=== PATIENT | male | born 1960 | race Two or more races ===

== ENCOUNTER → 2020-08-08 13:25 | Outpatient (BNVA) | payer MEDICARE, MEDICAID, SELFPAY | PROVIDERS: PCP Internal Medicine; Visit Provider Urology | DX: C61 Malignant neoplasm of prostate (principal) | CPT/HCPCS: 96372; J9217 ==

== ENCOUNTER 2020-11-06 10:56 | Outpatient (REF) | payer MEDICARE, MEDICAID, SELFPAY ==
[2020-11-06 12:16] LABS: PSA,Total (Free>4and<10) < 0.05 ng/mL (0.00-4.00)
== END 2020-11-06 10:57 | disposition home or self-care (01) ==
LOC: HO.LAB 10:56
PROVIDERS: PCP Internal Medicine; Visit Provider Urology
DX: N40.1 Benign prostatic hyperplasia with lower urinary tract symptoms (principal); N13.8 Other obstructive and reflux uropathy; C61 Malignant neoplasm of prostate; Z12.5 Encounter for screening for malignant neoplasm of prostate
CPT/HCPCS: 36415; 84153

== ENCOUNTER → 2020-11-08 13:16 | Outpatient (BNVA) | payer MEDICARE, MEDICAID, SELFPAY | PROVIDERS: Visit Provider Urology | DX: Z13.89 Encounter for screening for other disorder (principal) | CPT/HCPCS: Q3014 ==

== ENCOUNTER 2021-01-29 11:58 | Outpatient (REF) | payer MEDICARE, MEDICAID, SELFPAY ==
[2021-01-29 13:59] LABS: Alanine Aminotransferase 20 U/L (0-40); Albumin Level 4.2 g/dL (3.5-5.0); Alkaline Phosphatase 77 U/L (39-117); Anion Gap 12 (12-20); Aspartate Amino Transferase 16 U/L (5-37); Bilirubin Total 0.6 mg/dL (0.0-1.0); Blood Urea Nitrogen 16 mg/dL (9-16); Calcium 8.9 mg/dL (8.4-10.2); Carbon Dioxide 28 mmol/L (22-29); Chloride 101 mmol/L (96-108); Cholesterol 175 mg/dL; Estimated Glomerular Filt Rate > 60; Glucose Fasting 89 mg/dL (60-99); HDL Cholesterol 34 mg/dL; LDL Cholesterol Calculated 79 mg/dl; Potassium 3.8 mmol/L (3.3-5.1); Sodium 137 mmol/L (135-145); Triglycerides 313 mg/dL
[2021-01-29 14:05] LABS: PSA,Total (Free>4and<10) < 0.05 ng/mL (0.00-4.00)
[2021-02-02 08:17] LABS: Testosterone, Total 10 ng/dL (250-1100)
== END 2021-01-29 11:59 | disposition home or self-care (01) ==
LOC: HO.LAB 11:58
PROVIDERS: Internal Medicine; Visit Provider Urology
DX: Z12.5 Encounter for screening for malignant neoplasm of prostate (principal); C61 Malignant neoplasm of prostate; I10 Essential (primary) hypertension; E78.5 Hyperlipidemia, unspecified; N13.8 Other obstructive and reflux uropathy; N40.1 Benign prostatic hyperplasia with lower urinary tract symptoms
CPT/HCPCS: 36415; 80053; 80061; 84153; 84403; 96402; 99212; J9217

== ENCOUNTER 2021-07-16 13:11 | Outpatient (REF) | payer MEDICARE, MEDICAID, SELFPAY ==
[2021-07-16 14:55] LABS: Prostate Specific Antigen < 0.05 ng/mL (<0.05-4.0)
[2021-07-20 11:15] LABS: Testosterone, Total 14 ng/dL (250-1100)
== END 2021-07-16 13:12 | disposition home or self-care (01) ==
LOC: HO.LAB 13:11
PROVIDERS: Visit Provider Urology
DX: Z12.5 Encounter for screening for malignant neoplasm of prostate (principal); C61 Malignant neoplasm of prostate
CPT/HCPCS: 36415; 84153; 84403

== ENCOUNTER → 2021-07-23 11:33 | Outpatient (BNVA) | payer MEDICARE, MEDICAID, SELFPAY | PROVIDERS: PCP Internal Medicine; Visit Provider Urology | DX: C61 Malignant neoplasm of prostate (principal); R39.15 Urgency of urination | CPT/HCPCS: Q3014 ==

== ENCOUNTER 2021-09-24 15:53 | Emergency (ER) | payer MEDICARE, MEDICAID, SELFPAY ==
--- NOTE | ~2021-09-24 | CT_ITS ---
EXAM: NONCONTRAST AND CONTRAST-ENHANCED CT OF THE ABDOMEN AND PELVIS INDICATION: Melena, hematochezia COMPARISON: None TECHNIQUE: 80 mL Omnipaque 350 IV contrast was utilized. Multidetector helical imaging was performed through the abdomen and pelvis prior to and following contrast administration. Coronal and sagittal reformatted images were created at the technologist workstation. DOSE LOWERING TECHNIQUES: This CT examination was performed using dose optimization techniques as appropriate, variously including the following: - Automated exposure control - Adjustment of mA and/or kV according to patient size (this includes techniques or standardized protocols for targeted exams were dose is matched to indication/reason for exam; i.e. extremities or head) - Use of iterative reconstruction technique DLP: 1778 mGy-cm Findings: The lung bases are clear. The liver demonstrates hypoattenuation consistent with steatosis. No intrahepatic biliary ductal dilatation. The gallbladder is unremarkable. The spleen, pancreas, and adrenal glands are within normal limits. Bilateral nephrograms are symmetric. No hydronephrosis. No obstructing renal or ureteral calculi are present. The urinary bladder is unremarkable. Prostatic seeds are noted. No active gastrointestinal hemorrhage is seen. There is mild colonic diverticulosis without convincing diverticulitis. There is mild mural prominence of the rectum, for which a mild proctitis cannot be excluded. No free fluid or free air is seen. There is mild scattered atherosclerotic calcification. No retroperitoneal or pelvic lymphadenopathy is seen. No acute osseous findings. CT/CT gi bleed abd pel wo/w con Impression: 1. No active gastrointestinal hemorrhage identified. 2. Mild mural prominence of the rectum, which could reflect mild proctitis. Correlation with recent or followup colonoscopy is advised to exclude an underlying mass lesion. 3. Hepatic steatosis.
[2021-09-24 17:45] LABS: MANUAL DIFF FLAG NO
[2021-09-24 17:47] LABS: Basophils Percent Auto 0.8 % (0-2); Eosinophils Absolute Auto 0.3 X10*3/uL (0.0-0.4); Eosinophils Percent Auto 4.9 % (0-4); Hematocrit 42.7 % (42.0-52.0); Hemoglobin 14.1 g/dl (14.0-18.0); Imm Gran Abs Auto 0.02 X10*3/uL (0.00-0.03); Imm Gran Pct Auto 0.4 % (0.0-0.4); Lymphocytes Percent Auto 18.9 % (20-40); Mean Corpuscular Hemoglobin 27.5 pg (27.0-33.0); Mean Corpuscular Volume 83.4 fL (80.0-98.0); Mean Platelet Volume 9.7 fL (9.4-12.4); Monocytes Absolute Auto 0.4 X10*3/uL (0.1-1.2); Monocytes Percent Auto 8.1 % (2-11); Neutrophils Absolute Auto 3.4 x10*3/uL (2.0-8.3); Neutrophils Percent Auto 66.9 % (45-73); Platelet Count 305 X10*3/uL (160-400); Red Blood Count 5.12 X10*6/uL (4.60-5.80); Red Cell Distribution Width 13.8 % (11.0-16.0); White Blood Count 5.1 X10*3/uL (4.8-10.8)
[2021-09-24 18:03] LABS: Anion Gap 10 (12-20); Blood Urea Nitrogen 13 mg/dL (9-16); Calcium 9.8 mg/dL (8.4-10.2); Carbon Dioxide 29 mmol/L (22-29); Chloride 102 mmol/L (96-108); Estimated Glomerular Filt Rate > 60; Glucose Random 86 mg/dL (60-115); Potassium 3.7 mmol/L (3.3-5.1); Sodium 137 mmol/L (135-145)
[2021-09-24 18:16] VITALS: BP 146/80; PULSE 63; RESP 16; TEMP 36.7; O2SAT 98; BMI 32.4
[2021-09-24 18:45] LABS: Appearance Urine CLEAR; Color Urine YELLOW; Glucose Urine UA NEG (NEG); Leukocyte Esterase Urine NEG (NEG); Nitrite Urine NEG (NEG); Specific Gravity - Urine 1.015 (1.005-1.025); Urine Blood NEG (NEG); Urine Ketones NEG (NEG); Urine Protein NEG (NEG-TRACE)
[2021-09-24 21:35] LABS: Alanine Aminotransferase 35 U/L (0-40); Albumin Level 4.6 g/dL (3.5-5.0); Alkaline Phosphatase 72 U/L (39-117); Anion Gap 10 (12-20); Aspartate Amino Transferase 24 U/L (5-37); Bilirubin Direct 0.2 mg/dL (0.0-0.5); Blood Urea Nitrogen 13 mg/dL (9-16); Carbon Dioxide 31 mmol/L (22-29); Chloride 102 mmol/L (96-108); Creatinine Clr Calc Pharmacy 97.9; Estimated Glomerular Filt Rate > 60; Glucose Random 97 mg/dL (60-115); Lipase 21 U/L (8-78); Sodium 139 mmol/L (135-145); Total Protein 8.3 g/dL (6.5-8.0)
--- NOTE | 2021-09-24 23:58 | ED_ITS ---
HPI - GI Bleed General Chief complaint: GI Bleed <STEFAN Malik Last Filed: 09/25/21 03:09> Stated complaint: blood in stool and flank pain <Collette Barney NP - Last Filed: 09/25/21 03:09> Time Seen by Provider: 09/25/21 03:08 <Collette Barney NP - Last Filed: 09/25/21 03:09> Source: patient <Collette Barney NP - Last Filed: 09/25/21 03:09> Mode of arrival: ambulatory <Collette Barney NP - Last Filed: 09/25/21 03:09> Limitations: no limitations <STEFAN Malik Last Filed: 09/25/21 03:09> History of Present Illness HPI Narrative: 60-year-old male presents with black tarry stools, bright red blood per rectum, left-sided flank pain for approximately 1 month, taking ibuprofen 800 mg 3 times a day, with a history of prostate cancer approximately 1 year ago. <Collette Barney NP - Last Filed: 09/25/21 03:09> MD complaint: melena and blood streaked stool <Collette Barney NP - Last Filed: 09/25/21 03:09> Onset (ago): day(s) (3) <Collette Barney NP - Last Filed: 09/25/21 03:09> Pain Consistency: constant <Collette Barney NP - Last Filed: 09/25/21 03:09> Severity: moderate <Collette Barney NP - Last Filed: 09/25/21 03:09> Relieving factors: none <Collette Barney NP - Last Filed: 09/25/21 03:09> Exacerbating factors: bowel movement and movement <STEFAN Malik Last Filed: 09/25/21 03:09> Context: hemorrhoids and other (History of prostatic cancer with radiation) <Collette Barney NP - Last Filed: 09/25/21 03:09> Associated symptoms: abdominal pain <Collette Barney NP - Last Filed: 09/25/21 03:09> Treatments Prior to Arrival: none <STEFAN Malik Last Filed: 09/25/21 03:09> Related Data Home medications: Home Medications Medication Instructions Recorded Confirmed fluticasone propionate 115 2 puff PO BID 11/08/20 02/13/21 mcg-salmeterol 21 mcg/actuation HFA inhaler hydralazine 100 mg tablet 100 mg PO BEDTIME 05/07/21 Previous Rx's Medication Instructions Recorded albuterol sulfate 90 mcg/actuation 2 inh INHALATION Q6H PRN 30 Days 10/25/20 breath activated powder inhaler #1 ea (ProAir RespiClick) ibuprofen 800 mg tablet 800 mg PO TID #90 tab 10/25/20 tamsulosin 0.4 mg capsule 0.4 mg PO BEDTIME #90 cap 11/08/20 finasteride 5 mg tablet 5 mg PO DAILY #30 tab 03/05/21 azithromycin 250 mg tablet See Rx Instructions PO .COMPLEX #6 04/03/21 tab amlodipine 2.5 mg tablet 2.5 mg PO DAILY 90 Days #90 tab 04/10/21 amoxicillin 500 mg tablet 500 mg PO Q12H 5 Days #10 tab 04/14/21 albuterol sulfate 90 mcg/actuation 2 puff PO Q4H PRN #18 g 05/03/21 aerosol inhaler (Ventolin HFA) atorvastatin 10 mg tablet 10 mg PO BEDTIME #90 tab 05/03/21 omeprazole 20 mg capsule,delayed 20 mg PO DAILY #90 cap 05/03/21 release irbesartan 300 1 tab PO DAILY #30 tab 07/02/21 mg-hydrochlorothiazide 12.5 mg tablet oxybutynin chloride 5 mg tablet 5 mg PO BEDTIME PRN 30 Days #30 tab 07/23/21 levofloxacin 750 mg tablet 750 mg PO DAILY 7 Days #7 tab 09/25/21 metronidazole 500 mg tablet 500 mg PO Q8H 7 Days #21 tab 09/25/21 <Collette Barney NP - Last Filed: 09/25/21 03:09> Allergies/Adverse reactions: Allergies Allergy/AdvReac Type Severity Reaction Status Date / Time No Known Allergies Allergy Verified 07/23/21 11:46 [No Known Allergies*] <Collette Barney NP - Last Filed: 09/25/21 03:09> Review of Systems Review of Systems: Constitutional: No Weight loss, No Fever, No Chills, No Night Sweats, No Fatigue, No Malaise ENT/Mouth: No Hearing loss, No Ear Pain, No Nasal Congestion, No Sinus Pain, No Hoarseness, No sore throat, No Rhinorrhea, No Swallowing Difficulty Eyes: No Eye Pain, No Swelling, No Redness, No Foreign Body, No Discharge, No Vision Changes Cardiovascular: No Chest Pain, No SOB, No Dyspnea on Exertion, No Orthopnea, No Edema, No Palpitations Respiratory: No Cough, No Sputum, No Wheezing, No Smoke Exposure, No Dyspnea Gastrointestinal: No Nausea, no Vomiting, no Diarrhea, positive abdominal Pain, positive Hematochezia, positive Melena Genitourinary: no irregular bleeding, No Dysuria, No Urinary Frequency, No Hematuria, No Urinary Incontinence, No Urgency, No Flank Pain, No Urinary Flow Changes, No Hesitancy Musculoskeletal: No joint pain, No Myalgias, No Joint Swelling Skin: No Skin Lesions, No rash Neuro: No Weakness, No Numbness, No Paresthesias, No Loss of Consciousness, No Dizziness, No Headache Psych: No Anxiety/Panic, No Depression, No SI/HI/AH/VH, No Social Issues Heme/Lymph: No Bruising, No Bleeding,No Lymphadenopathy Endocrine: No Polyuria, No Polydipsia, No Temperature Intolerance <Collette Barney NP - Last Filed: 09/25/21 03:09> Yes all other systems are reviewed and are negative <Collette Barney NP - Last Filed: 09/25/21 03:09> PMFSH Past Medical History Attestation statement: The following information was validated with the patient. <Collette Barney NP - Last Filed: 09/25/21 03:09> Source: old records reviewed <Collette Barney NP - Last Filed: 09/25/21 03:09> Medical History: Medical History Dyslipidemia Elevated PSA Essential hypertension GERD (gastroesophageal reflux disease) Hypogonadism in male Nocturia <Collette Barney NP - Last Filed: 09/25/21 03:09> Surgical History: Surgical History No pertinent past surgical history <Collette Barney NP - Last Filed: 09/25/21 03:09> Family History Family History: Family History Father Hypertension Myocardial infarction Mother Hypertension Diabetes Paternal Aunt Breast cancer <Collette Barney NP - Last Filed: 09/25/21 03:09> Social History Social History: Social History Housing: Apartment Patient Tobacco Use Status: Former Tobacco user Tobacco use type: Cigarette e-Cigarette/Vaping Use: Never Used Second Hand Smoke Exposure: No Advance Directives: No Advance Directives Information Provided: Yes service: No Current occupational status: disabled <Collette Barney NP - Last Filed: 09/25/21 03:09> Physical Exam Vital Signs: Vital Signs: Last Vital Signs Temp 98.0 F 09/24/21 18:16 Pulse 61 09/25/21 00:32 Resp 18 09/25/21 00:32 BP 142/74 H 09/25/21 00:32 Pulse Ox 98 09/25/21 00:32 BMI result Body Mass Index 32.4 <Collette Barney NP - Last Filed: 09/25/21 03:09> Vital Signs: Last Vital Signs Temp 98.0 F 09/24/21 18:16 Pulse 61 09/25/21 00:32 Resp 18 09/25/21 00:32 BP 142/74 H 09/25/21 00:32 Pulse Ox 98 09/25/21 00:32 BMI result Body Mass Index 32.4 <Noel Drake MD - Last Filed: 09/25/21 06:46> Appearance: Alert. Oriented X3. No acute distress. Eyes: Pupils equal, round and reactive to light. Sclera nonicteric. ENT: Pharynx normal. Moist mucous membranes. Neck: Normal inspection. Neck supple. CVS: Normal heart rate and rhythm. Pulses normal. Respiratory: No respiratory distress. Breath sounds normal. Abdomen: Soft and diffusely tender. No rigidity or distention. Genitourinary: Internal and external hemorrhoids noted. Normal rectal tone. Skin: Skin warm and dry. Normal skin color. Normal skin turgor. Extremities: No lower extremity edema. Gait well-balanced well coordinated. Neuro: No motor deficit. No sensory deficit. Cranial nerves 2-12 intact. <Collette Barney NP - Last Filed: 09/25/21 03:09> Course Course Course Narrative: 60-year-old male presents abdominal pain, melena, hematochezia, left flank pain and consistent ibuprofen use. Has a history of prostate cancer with radiation, treatment ended approximately 1 year ago. Rectal exam completed with RN as clinical operations leader. Normal rectal tone, internal external hemorrhoids. Will order labs, CT GI protocol, and pain management. Labs drawn while patient was in the emergency department waiting room, no indication of anemia, or grossly abnormal lab values. 2:[address] scanned indicates proctitis. Will treat with p.o. Flagyl and Levaquin. senior graduate advisor utilized for all correspondence. Google translate utilized for discharge instructions. Patient verbalized understanding of and agrees to plan of care discharge home. <Collette Barney NP - Last Filed: 09/25/21 03:09> MDM - GI Bleed Differential Diagnosis Differential diagnosis: Likely hemorrhoids, gastritis, Upper gastrointestinal hemorrhage, Lower gastrointestinal hemorrhage, hematochezia, melena and anal fissure <Collette Barney NP - Last Filed: 09/25/21 03:09> Medical Records Attestation: I reviewed the patient's medical records. <Collette Barney NP - Last Filed: 09/25/21 03:09> Lab Data Attestation: I reviewed the patient's lab results. <Collette Barney NP - Last Filed: 09/25/21 03:09> Result diagrams: : 09/24/21 17:41 09/24/21 21:15 <Collette Barney NP - Last Filed: 09/25/21 03:09> Labs: Lab Results 09/24/21 09/24/21 09/24/21 Range/Units 17:41 17:41 18:31 WBC 5.1 (4.8-10.8) X10*3/uL RBC 5.12 (4.60-5.80) X10*6/uL Hgb 14.1 (14.0-18.0) g/dl Hct 42.7 (42.0-52.0) % MCV 83.4 (80.0-98.0) fL MCH 27.5 (27.0-33.0) pg MCHC 33.0 (31.0-36.0) g/dl RDW 13.8 (11.0-16.0) % Plt Count 305 (160-400) X10*3/uL MPV 9.7 (9.4-12.4) fL Immature Gran % (Auto) 0.4 (0.0-0.4) % Neut % (Auto) 66.9 (45-73) % Lymph % (Auto) 18.9 L (20-40) % [place] % (Auto) 8.1 (2-11) % Eos % (Auto) 4.9 H (0-4) % Baso % (Auto) 0.8 (0-2) % Lymph # (Auto) 1.0 L (1.2-4.9) X10*3/uL [place] # (Auto) 0.4 (0.1-1.2) X10*3/uL Eos # (Auto) 0.3 (0.0-0.4) X10*3/uL Baso # (Auto) 0.0 (0.0-0.2) X10*3/uL Abs Immat Gran (auto) 0.02 (0.00-0.03) X10*3/uL Absolute Neuts (auto) 3.4 (2.0-8.3) x10*3/uL Absolute Nucleated RBC 0.000 (0.0-0.012) X10*3/uL Nucleated RBC % (auto) 0.0 (0.0-0.2) /100WBC Sodium 137 (135-145) mmol/L Potassium 3.7 (3.3-5.1) mmol/L Chloride 102 (96-108) mmol/L Carbon Dioxide 29 (22-29) mmol/L Anion Gap 10 L (12-20) BUN 13 (9-16) mg/dL Creatinine 0.82 (0.5-1.4) mg/dL Estim Creat Clear Calc TNP Estimated GFR > 60 Random Glucose 86 (60-115) mg/dL Calcium 9.8 D (8.4-10.2) mg/dL Total Bilirubin (0.0-1.0) mg/dL Direct Bilirubin (0.0-0.5) mg/dL AST (5-37) U/L ALT (0-40) U/L Alkaline Phosphatase (39-117) U/L Total Protein (6.5-8.0) g/dL Albumin (3.5-5.0) g/dL Lipase (8-78) U/L Urine Color YELLOW Urine Appearance CLEAR Urine pH 6.0 (5.0-8.0) Ur Specific [place] 1.015 (1.005-1.025) Urine Protein NEG (NEG-TRACE) MG/DL Urine Glucose (UA) NEG (NEG) MG/DL Urine Ketones NEG (NEG) MG/DL Urine Blood NEG (NEG) Urine Nitrite NEG (NEG) Ur Leukocyte Esterase NEG (NEG) Stool Occult Blood (NEGATIVE) 09/24/21 09/25/21 Range/Units 21:15 00:32 WBC (4.8-10.8) X10*3/uL RBC (4.60-5.80) X10*6/uL Hgb (14.0-18.0) g/dl Hct (42.0-52.0) % MCV (80.0-98.0) fL MCH (27.0-33.0) pg MCHC (31.0-36.0) g/dl RDW (11.0-16.0) % Plt Count (160-400) X10*3/uL MPV (9.4-12.4) fL Immature Gran % (Auto) (0.0-0.4) % Neut % (Auto) (45-73) % Lymph % (Auto) (20-40) % [place] % (Auto) (2-11) % Eos % (Auto) (0-4) % Baso % (Auto) (0-2) % Lymph # (Auto) (1.2-4.9) X10*3/uL [place] # (Auto) (0.1-1.2) X10*3/uL Eos # (Auto) (0.0-0.4) X10*3/uL Baso # (Auto) (0.0-0.2) X10*3/uL Abs Immat Gran (auto) (0.00-0.03) X10*3/uL Absolute Neuts (auto) (2.0-8.3) x10*3/uL Absolute Nucleated RBC (0.0-0.012) X10*3/uL Nucleated RBC % (auto) (0.0-0.2) /100WBC Sodium 139 (135-145) mmol/L Potassium 4.0 (3.3-5.1) mmol/L Chloride 102 (96-108) mmol/L Carbon Dioxide 31 H (22-29) mmol/L Anion Gap 10 L (12-20) BUN 13 (9-16) mg/dL Creatinine 0.84 (0.5-1.4) mg/dL Estim Creat Clear Calc 97.9 Estimated GFR > 60 Random Glucose 97 (60-115) mg/dL Calcium 10.0 (8.4-10.2) mg/dL Total Bilirubin 1.0 (0.0-1.0) mg/dL Direct Bilirubin 0.2 (0.0-0.5) mg/dL AST 24 D (5-37) U/L ALT 35 (0-40) U/L Alkaline Phosphatase 72 (39-117) U/L Total Protein 8.3 H (6.5-8.0) g/dL Albumin 4.6 (3.5-5.0) g/dL Lipase 21 (8-78) U/L Urine Color Urine Appearance Urine pH (5.0-8.0) Ur Specific [place] (1.005-1.025) Urine Protein (NEG-TRACE) MG/DL Urine Glucose (UA) (NEG) MG/DL Urine Ketones (NEG) MG/DL Urine Blood (NEG) Urine Nitrite (NEG) Ur Leukocyte Esterase (NEG) Stool Occult Blood POSITIVE (NEGATIVE) <Collette Barney, REFERENCE AND INSTRUCTION LIBRARIAN - Last Filed: 09/25/21 03:09> Lab Results 09/24/21 09/24/21 09/24/21 Range/Units 17:41 17:41 18:31 WBC 5.1 (4.8-10.8) X10*3/uL RBC 5.12 (4.60-5.80) X10*6/uL Hgb 14.1 (14.0-18.0) g/dl Hct 42.7 (42.0-52.0) % MCV 83.4 (80.0-98.0) fL MCH 27.5 (27.0-33.0) pg MCHC 33.0 (31.0-36.0) g/dl RDW 13.8 (11.0-16.0) % Plt Count 305 (160-400) X10*3/uL MPV 9.7 (9.4-12.4) fL Immature Gran % (Auto) 0.4 (0.0-0.4) % Neut % (Auto) 66.9 (45-73) % Lymph % (Auto) 18.9 L (20-40) % [place] % (Auto) 8.1 (2-11) % Eos % (Auto) 4.9 H (0-4) % Baso % (Auto) 0.8 (0-2) % Lymph # (Auto) 1.0 L (1.2-4.9) X10*3/uL [place] # (Auto) 0.4 (0.1-1.2) X10*3/uL Eos # (Auto) 0.3 (0.0-0.4) X10*3/uL Baso # (Auto) 0.0 (0.0-0.2) X10*3/uL Abs Immat Gran (auto) 0.02 (0.00-0.03) X10*3/uL Absolute Neuts (auto) 3.4 (2.0-8.3) x10*3/uL Absolute Nucleated RBC 0.000 (0.0-0.012) X10*3/uL Nucleated RBC % (auto) 0.0 (0.0-0.2) /100WBC Sodium 137 (135-145) mmol/L Potassium 3.7 (3.3-5.1) mmol/L Chloride 102 (96-108) mmol/L Carbon Dioxide 29 (22-29) mmol/L Anion Gap 10 L (12-20) BUN 13 (9-16) mg/dL Creatinine 0.82 (0.5-1.4) mg/dL Estim Creat Clear Calc TNP Estimated GFR > 60 Random Glucose 86 (60-115) mg/dL Calcium 9.8 D (8.4-10.2) mg/dL Total Bilirubin (0.0-1.0) mg/dL Direct Bilirubin (0.0-0.5) mg/dL AST (5-37) U/L ALT (0-40) U/L Alkaline Phosphatase (39-117) U/L Total Protein (6.5-8.0) g/dL Albumin (3.5-5.0) g/dL Lipase (8-78) U/L Urine Color YELLOW Urine Appearance CLEAR Urine pH 6.0 (5.0-8.0) Ur Specific [place] 1.015 (1.005-1.025) Urine Protein NEG (NEG-TRACE) MG/DL Urine Glucose (UA) NEG (NEG) MG/DL Urine Ketones NEG (NEG) MG/DL Urine Blood NEG (NEG) Urine Nitrite NEG (NEG) Ur Leukocyte Esterase NEG (NEG) Stool Occult Blood (NEGATIVE) 09/24/21 09/25/21 Range/Units 21:15 00:32 WBC (4.8-10.8) X10*3/uL RBC (4.60-5.80) X10*6/uL Hgb (14.0-18.0) g/dl Hct (42.0-52.0) % MCV (80.0-98.0) fL MCH (27.0-33.0) pg MCHC (31.0-36.0) g/dl RDW (11.0-16.0) % Plt Count (160-400) X10*3/uL MPV (9.4-12.4) fL Immature Gran % (Auto) (0.0-0.4) % Neut % (Auto) (45-73) % Lymph % (Auto) (20-40) % [place] % (Auto) (2-11) % Eos % (Auto) (0-4) % Baso % (Auto) (0-2) % Lymph # (Auto) (1.2-4.9) X10*3/uL [place] # (Auto) (0.1-1.2) X10*3/uL Eos # (Auto) (0.0-0.4) X10*3/uL Baso # (Auto) (0.0-0.2) X10*3/uL Abs Immat Gran (auto) (0.00-0.03) X10*3/uL Absolute Neuts (auto) (2.0-8.3) x10*3/uL Absolute Nucleated RBC (0.0-0.012) X10*3/uL Nucleated RBC % (auto) (0.0-0.2) /100WBC Sodium 139 (135-145) mmol/L Potassium 4.0 (3.3-5.1) mmol/L Chloride 102 (96-108) mmol/L Carbon Dioxide 31 H (22-29) mmol/L Anion Gap 10 L (12-20) BUN 13 (9-16) mg/dL Creatinine 0.84 (0.5-1.4) mg/dL Estim Creat Clear Calc 97.9 Estimated GFR > 60 Random Glucose 97 (60-115) mg/dL Calcium 10.0 (8.4-10.2) mg/dL Total Bilirubin 1.0 (0.0-1.0) mg/dL Direct Bilirubin 0.2 (0.0-0.5) mg/dL AST 24 D (5-37) U/L ALT 35 (0-40) U/L Alkaline Phosphatase 72 (39-117) U/L Total Protein 8.3 H (6.5-8.0) g/dL Albumin 4.6 (3.5-5.0) g/dL Lipase 21 (8-78) U/L Urine Color Urine Appearance Urine pH (5.0-8.0) Ur Specific [place] (1.005-1.025) Urine Protein (NEG-TRACE) MG/DL Urine Glucose (UA) (NEG) MG/DL Urine Ketones (NEG) MG/DL Urine Blood (NEG) Urine Nitrite (NEG) Ur Leukocyte Esterase (NEG) Stool Occult Blood POSITIVE (NEGATIVE) <Noel Drake MD - Last Filed: 09/25/21 06:46> Imaging Data CT abdomen pelvis GI study: Attestation: I personally reviewed and interpreted this imaging study as follows: <Collette Barney NP - Last Filed: 09/25/21 03:09> Radiologist's impression: Findings: The lung bases are clear. The liver demonstrates hypoattenuation consistent with steatosis. No intrahepatic biliary ductal dilatation. The gallbladder is unremarkable. The spleen, pancreas, and adrenal glands are within normal limits. Bilateral nephrograms are symmetric. No hydronephrosis. No obstructing renal or ureteral calculi are present. The urinary bladder is unremarkable. Prostatic seeds are noted. No active gastrointestinal hemorrhage is seen. There is mild colonic diverticulosis without convincing diverticulitis. There is mild mural prominence of the rectum, for which a mild proctitis cannot be excluded. No free fluid or free air is seen. There is mild scattered atherosclerotic calcification. No retroperitoneal or pelvic lymphadenopathy is seen. No acute osseous findings. CT/CT gi bleed abd pel wo/w con Impression: 1.? No active gastrointestinal hemorrhage identified. 2.? Mild mural prominence of the rectum, which could reflect mild proctitis. Correlation with recent or followup colonoscopy is advised to exclude an underlying mass lesion. 3.? Hepatic steatosis. <Collette Barney NP - Last Filed: 09/25/21 03:09> ECG Data Attestation: I personally reviewed and interpreted this ECG as follows: <Collette Barney NP - Last Filed: 09/25/21 03:09> ECG interpretation date: 09/25/21 <Collette Barney NP - Last Filed: 09/25/21 03:09> ECG interpretation time: 02:33 <Collette Barney NP - Last Filed: 09/25/21 03:09> Prior ECG tracings: available for review <Collette Barney NP - Last Filed: 09/25/21 03:09> Interpretation: Vent. rate 59 BPM [place] interval 166 ms QRS duration 90 ms QT/QTc 420/415 ms P-R-T axes 36 -9 -55 Sinus bradycardia Left ventricular hypertrophy with repolarization abnormality ( R in aVL ) Abnormal ECG When compared with ECG of 10-OCT-2019 19:08, Minimal criteria for Septal infarct are no longer Present <Collette Barney NP - Last Filed: 09/25/21 03:09> Discharge Plan Discharge Clinical Impression: Acute proctitis <Collette Barney NP - Last Filed: 09/25/21 03:09> Patient Disposition: Home, Self-Care <Collette Barney NP - Last Filed: 09/25/21 03:09> Instructions: Proctitis (ED) <Collette Barney NP - Last Filed: 09/25/21 03:09> Additional Instructions: Se le evalu? por sangrado rectal y dolor abdominal. La tomograf?a computarizada indica proctitis. [place] Flagyl 500 mg 3 veces al d?a jessie 7 d?as y Levaquin 750 mg jessie los pr?ximos 7 d?as. Debe hacer un seguimiento con Gastroenterolog?a. Llame al consultorio del Dr. Cazares para concertar atif johny. Tambi?n puede hacer un seguimiento con el m?dico de atenci?n primaria. Candida por elegir macario departamento de emergencias para moncada evaluaci?n. Anusha un seguimiento con moncada m?dico de atenci?n primaria seg?n sea necesario. Regrese al departamento de emergencias por cualquier s?ntoma nuevo, preocupante o que empeore. You were evaluated for rectal bleeding and abdominal pain. CT scan indicates proctitis. Please take Flagyl 500 mg 3 times a day for 7 days and Levaquin 750 mg for the next 7 days. You must follow-up with Gastroenterology. Please call Dr. Cazares' office for an appointment. You may also follow-up with the primary care physician. Thank you for choosing this emergency department for evaluation. Please fol low-up with primary care physician as needed. Return to the emergency department for any new, concerning, or worsening symptoms. <Collette Barney NP - Last Filed: 09/25/21 03:09> Prescriptions: New metronidazole 500 mg tablet 500 mg PO Q8H 7 Days Qty: 21 RF: 0 levofloxacin 750 mg tablet 750 mg PO DAILY 7 Days Qty: 7 RF: 0 No Action ibuprofen 800 mg tablet 800 mg PO TID Qty: 90 RF: 3 ProAir RespiClick 90 mcg/actuation aerosol powdr breath activated 2 inh inhalation Q6H PRN (Reason: shortness of breath or wheezing) 30 Days Qty: 1 RF: 6 finasteride 5 mg tablet 5 mg PO DAILY Qty: 30 RF: 6 amlodipine 2.5 mg tablet 2.5 mg PO DAILY 90 Days Qty: 90 RF: 0 amoxicillin 500 mg tablet 500 mg PO Q12H 5 Days Qty: 10 RF: 0 omeprazole 20 mg capsule,delayed release(DR/EC) 20 mg PO DAILY Qty: 90 RF: 1 atorvastatin 10 mg tablet 10 mg PO BEDTIME Qty: 90 RF: 0 albuterol sulfate [Ventolin HFA] 90 mcg/actuation HFA aerosol inhaler 2 puff PO Q4H PRN (Reason: shortness of breath or wheezing) Qty: 18 RF: 6 irbesartan-hydrochlorothiazide 300-12.5 mg tablet 1 tab PO DAILY Qty: 30 RF: 2 azithromycin 250 mg tablet See Rx Instructions PO .COMPLEX Qty: 6 RF: 0 oxybutynin chloride 5 mg tablet 5 mg PO BEDTIME PRN (Reason: bladder spasms) 30 Days Qty: 30 RF: 3 Advair HFA 115-21 mcg/actuation HFA aerosol inhaler 2 puff PO BID RF: 0 tamsulosin 0.4 mg capsule 0.4 mg PO BEDTIME Qty: 90 RF: 0 hydralazine 100 mg tablet 100 mg PO BEDTIME RF: 0 <Collette Barney NP - Last Filed: 09/25/21 03:09> Referrals: Emmett Cazares [Physician] - 2 days (Rectal bleeding, hemorrhoids, proctitis) <Collette Barney NP - Last Filed: 09/25/21 03:09> Interventions: ED Discharge Assessment Last Done: 09/25/21 03:16 <Collette Barney NP - Last Filed: 09/25/21 03:09> Discharge Date/Time: 09/25/21 03:18 <Collette Barney NP - Last Filed: 09/25/21 03:09> Print Language: Portuguese <Collette Barney NP - Last Filed: 09/25/21 03:09>
--- NOTE | 2021-09-25 00:12 | ECG_ITS ---
Test Reason : abd pain Blood Pressure : / mmHG Vent. Rate : 059 BPM Atrial Rate : 059 BPM P-R Int : 166 ms QRS Dur : 090 ms QT Int : 420 ms P-R-T Axes : 036 -09 -55 degrees QTc Int : 415 ms Sinus bradycardia Left ventricular hypertrophy with repolarization abnormality ( R in aVL ) Abnormal ECG When compared with ECG of 10-OCT-2019 19:08, Minimal criteria for Septal infarct are no longer Present Referred By: Collette Barney Electronically Signed By:Isaac Thompson
[2021-09-25 00:32] VITALS: BP 142/74; PULSE 61; RESP 18; O2SAT 98
[2021-09-25] MEDS: Morphine Sulfate 2 MG/ML CARTRIDGE IVPUSH (00:33)
[2021-09-25] MEDS: ondansetron HCL 4 MG/2 ML VIAL IVPUSH (00:33)
[2021-09-25 00:40] LABS: OBS1 POSITIVE (NEGATIVE)
[2021-09-25 00:41] LABS: OBS Int Ctl Valid YES
[2021-09-25] MEDS: iohexoL 350 MG/ML 100 ML INFUS..BTL 80 ML IV (01:20)
[2021-09-25] MEDS: levoFLOXacin 750 MG TABLET PO (02:59)
[2021-09-25] MEDS: metroNIDAZOLE 500 MG TABLET PO (02:59)
== END 2021-09-25 03:18 | disposition home or self-care (01) ==
PROVIDERS: Nurse Practitioner Family; Emergency Provider Emergency Medicine; PCP Internal Medicine
DX: K92.1 Melena (principal); K62.89 Other specified diseases of anus and rectum; R10.9 Unspecified abdominal pain; Z79.899 Other long term (current) drug therapy; Z87.891 Personal history of nicotine dependence; Z85.46 Personal history of malignant neoplasm of prostate
CPT/HCPCS: 36415; 74178; 80048; 80076; 81003; 82272; 83690; 85025; 93005; 96374; 96375; 99284; J2270; J2405; Q9967

== ENCOUNTER 2021-10-13 12:41 | Outpatient (REF) | payer MEDICARE, MEDICAID, SELFPAY | END 2021-10-13 12:42 | disposition home or self-care (01) | LOC: HO.LAB 12:41 | PROVIDERS: PCP Internal Medicine; Visit Provider Internal Medicine | DX: Z20.822 Contact with and (suspected) exposure to COVID-19 (principal) | CPT/HCPCS: C9803; U0003; U0005 ==

== ENCOUNTER 2021-10-30 14:58 | Emergency (ER) | payer MEDICARE, MEDICAID, SELFPAY ==
[2021-10-30 15:03] VITALS: BP 122/86; PULSE 68; RESP 18; TEMP 36.4; O2SAT 100; BMI 33.3
[2021-10-30 15:31] LABS: MANUAL DIFF FLAG NO
[2021-10-30 15:36] LABS: Basophils Percent Auto 0.6 % (0-2); Eosinophils Absolute Auto 0.2 X10*3/uL (0.0-0.4); Eosinophils Percent Auto 3.4 % (0-4); Hematocrit 39.4 % (42.0-52.0); Hemoglobin 13.3 g/dl (14.0-18.0); Imm Gran Abs Auto 0.04 X10*3/uL (0.00-0.03); Imm Gran Pct Auto 0.8 % (0.0-0.4); Lymphocytes Percent Auto 18.1 % (20-40); Mean Corpuscular HGB Conc 33.8 g/dl (31.0-36.0); Mean Corpuscular Volume 82.9 fL (80.0-98.0); Mean Platelet Volume 9.6 fL (9.4-12.4); Monocytes Absolute Auto 0.3 X10*3/uL (0.1-1.2); Monocytes Percent Auto 5.5 % (2-11); Neutrophils Absolute Auto 3.8 x10*3/uL (2.0-8.3); Neutrophils Percent Auto 71.6 % (45-73); Platelet Count 266 X10*3/uL (160-400); Red Blood Count 4.75 X10*6/uL (4.60-5.80); Red Cell Distribution Width 13.7 % (11.0-16.0); White Blood Count 5.3 X10*3/uL (4.8-10.8)
[2021-10-30 15:50] LABS: Alanine Aminotransferase 27 U/L (0-40); Albumin Level 4.4 g/dL (3.5-5.0); Alkaline Phosphatase 78 U/L (39-117); Anion Gap 12 (12-20); Aspartate Amino Transferase 18 U/L (5-37); Bilirubin Direct 0.2 mg/dL (0.0-0.5); Bilirubin Total 0.8 mg/dL (0.0-1.0); Blood Urea Nitrogen 11 mg/dL (9-16); Calcium 9.5 mg/dL (8.4-10.2); Carbon Dioxide 28 mmol/L (22-29); Chloride 101 mmol/L (96-108); Creatinine Clr Calc Pharmacy 89.6; Estimated Glomerular Filt Rate > 60; Glucose Random 170 mg/dL (60-115); Lipase 26 U/L (8-78); Potassium 3.4 mmol/L (3.3-5.1); Sodium 138 mmol/L (135-145); Total Protein 7.6 g/dL (6.5-8.0)
[2021-10-30 16:21] VITALS: BP 147/85; PULSE 88; RESP 16; TEMP 36.9; O2SAT 97
--- NOTE | 2021-10-30 16:36 | ED_ITS ---
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 Patient states that he notice some blood on his underwear after he passes flatus but otherwise denies any dizziness, headache, shortness of breath, chest pain/palpitations, nausea/vomiting or otherwise denies abdominal pain. Patient only has pain at the time of defecation that he describes as sharp/burning in nature. He states he got a referral from his primary care provider but does not know with whom and has not made the phone call. Related Data Home Medications Medication Instructions Recorded Confirmed fluticasone propionate 115 2 puff PO BID 11/08/20 10/09/21 mcg-salmeterol 21 mcg/actuation HFA inhaler Previous Rx's Medication Instructions Recorded albuterol sulfate 90 mcg/actuation 2 inh INHALATION Q6H PRN 30 Days 10/25/20 breath activated powder inhaler #1 ea (ProAir RespiClick) tamsulosin 0.4 mg capsule 0.4 mg PO BEDTIME #90 cap 11/08/20 finasteride 5 mg tablet 5 mg PO DAILY #30 tab 03/05/21 albuterol sulfate 90 mcg/actuation 2 puff PO Q4H PRN #18 g 05/03/21 aerosol inhaler (Ventolin HFA) atorvastatin 10 mg tablet 10 mg PO BEDTIME #90 tab 05/03/21 omeprazole 20 mg capsule,delayed 20 mg PO DAILY #90 cap 05/03/21 release irbesartan 300 1 tab PO DAILY #30 tab 07/02/21 mg-hydrochlorothiazide 12.5 mg tablet oxybutynin chloride 5 mg tablet 5 mg PO BEDTIME PRN 30 Days #30 07/23/21 tab acetaminophen 650 mg 650 mg PO Q8H PRN 30 Days #90 tab 10/11/21 tablet,extended release (Mapap Arthritis Pain) blood pressure monitor (Blood #1 ea 10/28/21 Pressure Kit) sucralfate 100 mg/mL oral 20 ml KS DAILY 30 Days #600 ml 10/30/21 suspension Allergies Allergy/AdvReac Type Severity Reaction Status Date / Time No Known Allergies Allergy Verified 10/09/21 15:53 [No Known Allergies*] Review of Systems Verdana 4l Review of Systems: Verdana 4d Pertinent positives and Verdana 4d negatives as stated in HPI 10 point review of systems is otherwise negative. Verdana 4d PMFSH Past Medical History Source: nursing notes reviewed Medical History Dyslipidemia Elevated PSA Essential hypertension GERD (gastroesophageal reflux disease) Hypogonadism in male Nocturia Rectal bleeding Surgical History No pertinent past surgical history Family History Family History Father Hypertension Myocardial infarction Mother Hypertension Diabetes Paternal Aunt Breast cancer Social History Social History Housing: Apartment Alcohol intake: former Patient Tobacco Use Status: Former Tobacco user Tobacco use type: Cigarette e-Cigarette/Vaping Use: Never Used Second Hand Smoke Exposure: No Use of substances other than those prescribed or required for medical reasons: No Advance Directives: No Advance Directives Information Provided: No service: No Current occupational status: disabled Physical Exam Verdana 4l Vital Signs: Verdana 4d Verdana 4d Vital Signs: Verdana 4d Verdana 4Bd Last Vital Signs Verdana 4d Master Data Analyst New 4d Master Data Analyst New 4d Temp 98.4 F 10/30/21 16:21 Master Data Analyst New 4d Pulse 88 10/30/21 16:21 Master Data Analyst New 4d Resp 16 10/30/21 16:21 BP 147/85 H 10/30/21 16:21 Pulse Ox 97 10/30/21 16:21 BMI result Body Mass Index 33.3 VITAL SIGNS: Reviewed. GENERAL: Well developed, well nourished, in no acute distress. HEAD: Normocephalic/atraumatic EYES: PERRLA, EOMI, without pallor OROPHARYNX: no oral lesions noted, posterior pharynx clear without pale mucosa NECK: Supple, no adenopathy LUNGS: Normal breath sounds. No adventitious sounds or accessory muscle use. SpO2<97> CARDIOVASCULAR: Regular rate and rhythm without noted murmurs, no JVD or lower extremity edema. ABDOMEN: Soft, non-tender, non-distended with bowel sounds. ESTELA: 2 noninflamed external hemorrhoids noted at 12 and 6:00 a.m., narrowing n oticed on finger insertion with discomfort for the patient, no stool noted in the vault and no blood/melena noted on finger NEUROLOGIC: Alert and oriented x 4. Course Course Course Narrative: 60-year-old male with history and clinical presentation most consistent with radiation proctitis after all labs were reviewed as well as documentation from prior visit. It is noted that patient was treated with a combination of Flagyl and levofloxacin at that time. Otherwise, there are no significant findings on investigations, stool guaiac is negative however this may be due to poor sample acquisition. Review of all investigations otherwise negative for acute findings hand patient is hemodynamically stable with no clinical or overt evidence of acute hemorrhage. Patient discharged home in stable condition. Reevaluation(s) Reevaluation #1: I discussed the case with Gastroenterology who agrees with sucralfate enemas and recommends referral back to Urology. Time: 16:57 Medical Decision Making Lab Data Result diagrams: 10/30/21 15:26 10/30/21 15:26 Labs: Lab Results 10/30/21 10/30/21 10/30/21 Range/Units 15:26 15:26 16:41 WBC 5.3 (4.8-10.8) X10*3/uL RBC 4.75 (4.60-5.80) X10*6/uL Hgb 13.3 L (14.0-18.0) g/dl Hct 39.4 L (42.0-52.0) % MCV 82.9 (80.0-98.0) fL MCH 28.0 (27.0-33.0) pg MCHC 33.8 (31.0-36.0) g/dl RDW 13.7 (11.0-16.0) % Plt Count 266 (160-400) X10*3/uL MPV 9.6 (9.4-12.4) fL Immature Gran % (Auto) 0.8 H (0.0-0.4) % Neut % (Auto) 71.6 (45-73) % Lymph % (Auto) 18.1 L (20-40) % Door % (Auto) 5.5 (2-11) % Eos % (Auto) 3.4 (0-4) % Baso % (Auto) 0.6 (0-2) % Lymph # (Auto) 1.0 L (1.2-4.9) X10*3/uL Door # (Auto) 0.3 (0.1-1.2) X10*3/uL Eos # (Auto) 0.2 (0.0-0.4) X10*3/uL Baso # (Auto) 0.0 (0.0-0.2) X10*3/uL Abs Immat Gran (auto) 0.04 H (0.00-0.03) X10*3/uL Absolute Neuts (auto) 3.8 (2.0-8.3) x10*3/uL Absolute Nucleated RBC 0.000 (0.0-0.012) X10*3/uL Nucleated RBC % (auto) 0.0 (0.0-0.2) /100WBC PT (9.9-13.0) SEC INR (0.9-1.1) Sodium 138 (135-145) mmol/L Potassium 3.4 (3.3-5.1) mmol/L Chloride 101 (96-108) mmol/L Carbon Dioxide 28 (22-29) mmol/L Anion Gap 12 (12-20) BUN 11 (9-16) mg/dL Creatinine 0.93 (0.5-1.4) mg/dL Estim Creat Clear Calc 89.6 Estimated GFR > 60 Random Glucose 170 H D (60-115) mg/dL Calcium 9.5 (8.4-10.2) mg/dL Total Bilirubin 0.8 (0.0-1.0) mg/dL Direct Bilirubin 0.2 (0.0-0.5) mg/dL AST 18 (5-37) U/L ALT 27 (0-40) U/L Alkaline Phosphatase 78 (39-117) U/L Total Protein 7.6 (6.5-8.0) g/dL Albumin 4.4 (3.5-5.0) g/dL Lipase 26 (8-78) U/L Urine Color Urine Appearance Urine pH (5.0-8.0) Ur Specific [place] (1.005-1.025) Urine Protein (NEG-TRACE) MG/DL Urine Glucose (UA) (NEG) MG/DL Urine Ketones (NEG) MG/DL Urine Blood (NEG) Urine Nitrite (NEG) Ur Leukocyte Esterase (NEG) Stool Occult Blood NEGATIVE (NEGATIVE) 10/30/21 10/30/21 Range/Units 16:50 16:50 WBC (4.8-10.8) X10*3/uL RBC (4.60-5.80) X10*6/uL Hgb (14.0-18.0) g/dl Hct (42.0-52.0) % MCV (80.0-98.0) fL MCH (27.0-33.0) pg MCHC (31.0-36.0) g/dl RDW (11.0-16.0) % Plt Count (160-400) X10*3/uL MPV (9.4-12.4) fL Immature Gran % (Auto) (0.0-0.4) % Neut % (Auto) (45-73) % Lymph % (Auto) (20-40) % Door % (Auto) (2-11) % Eos % (Auto) (0-4) % Baso % (Auto) (0-2) % Lymph # (Auto) (1.2-4.9) X10*3/uL Door # (Auto) (0.1-1.2) X10*3/uL Eos # (Auto) (0.0-0.4) X10*3/uL Baso # (Auto) (0.0-0.2) X10*3/uL Abs Immat Gran (auto) (0.00-0.03) X10*3/uL Absolute Neuts (auto) (2.0-8.3) x10*3/uL Absolute Nucleated RBC (0.0-0.012) X10*3/uL Nucleated RBC % (auto) (0.0-0.2) /100WBC PT 12.0 (9.9-13.0) SEC INR 1.1 (0.9-1.1) Sodium (135-145) mmol/L Potassium (3.3-5.1) mmol/L Chloride (96-108) mmol/L Carbon Dioxide (22-29) mmol/L Anion Gap (12-20) BUN (9-16) mg/dL Creatinine (0.5-1.4) mg/dL Estim Creat Clear Calc Estimated GFR Random Glucose (60-115) mg/dL Calcium (8.4-10.2) mg/dL Total Bilirubin (0.0-1.0) mg/dL Direct Bilirubin (0.0-0.5) mg/dL AST (5-37) U/L ALT (0-40) U/L Alkaline Phosphatase (39-117) U/L Total Protein (6.5-8.0) g/dL Albumin (3.5-5.0) g/dL Lipase (8-78) U/L Urine Color YELLOW Urine Appearance CLEAR Urine pH 6.0 (5.0-8.0) Ur Specific [place] 1.020 (1.005-1.025) Urine Protein NEG (NEG-TRACE) MG/DL Urine Glucose (UA) NEG (NEG) MG/DL Urine Ketones NEG (NEG) MG/DL Urine Blood NEG (NEG) Urine Nitrite NEG (NEG) Ur Leukocyte Esterase NEG (NEG) Stool Occult Blood (NEGATIVE) Discharge Plan Discharge Clinical Impression: Proctitis Patient Disposition: Home, Self-Care Additional Instructions: Siga las instrucciones a continuaci?n para realizar darlin enemas para tratar moncada proctitis: Agite la suspensi?n de sucralfato (soluci?n). Aplique un poco de gelatina lubricante en la boquilla del enema. el enema previamente preparado en atif mano, palpe moncada ano con la otra y gu?e suavemente la punta lubricada de la boquilla dentro de moncada ano para que varias pulgadas entren en moncada intestino inferior. Los enemas de sucralfato se usan para tratar la inflamaci?n del recto. (la parte inferior del intestino grueso que conduce al ano); m?s com?nmente esto es para la proctitis por radiaci?n; inflamaci?n intestinal despu?s de la radioterapia. Jade tratamiento puede ayudar a tratar el sangrado debido a la inflamaci?n, y puede continuarse hasta por 24 semanas; Uds puede detenerse cuando se detiene el sangrado. Esta hoja informativa explica c?mo puede administrar el enema usted mismo, utilizando atif jeringa y cat?ter. 1. Usando la jeringa proporcionada, extraiga 10 ml de la suspensi?n de sucralfato (2 g) y luego extraiga 10 ml de agua tibia y mezcle. Aseg?rese de que cualquier exceso de aire est? expulsado de la jeringa. 2. Conecte el cat?ter provisto a la punta de la jeringa y lubrique el extremo de la Cat?ter. 3. Acu?stese sobre moncada lado tish con ambas rodillas dobladas. Esta posici?n ayudar? al flujo de l?quido en el recto y ayuda a la retenci?n del enema. 4. Coloque atif toalla debajo de usted para atrapar cualquier fuga de l?quido atif vez que el se caldwell administrado un enema. 5. Con atif presi?n alberto, inserte suavemente el cat?ter a atif profundidad de aproximadamente 10 cm en el recto. 6. Presione el cilindro de la jeringa hacia abajo lentamente, con un movimiento alberto y uniforme. presi?n, hasta que se haya administrado todo el contenido de la jeringa. Retire lentamente el cat?ter. 7. Intente retener el enema en el recto el mayor tiempo posible. Si siente dolor o siente alguna resistencia en cualquier momento jessie el procedimiento, deje de y busque consejo m?dico adicional. Necesitar?: Suspensi?n de sucralfato Zhanna CROUCH. Llame a moncada proveedor de atenci?n primaria a primera hora de la ma?brandy para programar atif johny para la reevaluaci?n. Adem?s, debe hacer un seguimiento con moncada ur?logo. Prescriptions: New sucralfate 100 mg/mL suspension 20 ml KS DAILY 30 Days Qty: 600 0RF Rx Instructions: Place 20 mls in the syringe that you have been provided No Action ProAir RespiClick 90 mcg/actuation aerosol powdr breath activated 2 inh inhalation Q6H PRN (Reason: shortness of breath or wheezing) 30 Days Qty: 1 6RF finasteride 5 mg tablet 5 mg PO DAILY Qty: 30 6RF omeprazole 20 mg capsule,delayed release(DR/EC) 20 mg PO DAILY Qty: 90 1RF atorvastatin 10 mg tablet 10 mg PO BEDTIME Qty: 90 0RF albuterol sulfate [Ventolin HFA] 90 mcg/actuation HFA aerosol inhaler 2 puff PO Q4H PRN (Reason: shortness of breath or wheezing) Qty: 18 6RF irbesartan-hydrochlorothiazide 300-12.5 mg tablet 1 tab PO DAILY Qty: 30 2RF acetaminophen [Mapap Arthritis Pain] 650 mg tablet extended release 650 mg PO Q8H PRN (Reason: pain) 30 Days Qty: 90 1RF (DME) blood pressure monitor [Blood Pressure Kit] Kit See Rx Instructions .Route Qty: 1 0RF Rx Instructions: As directed oxybutynin chloride 5 mg tablet 5 mg PO BEDTIME PRN (Reason: bladder spasms) 30 Days Qty: 30 3RF Advair HFA 115-21 mcg/actuation HFA aerosol inhaler 2 puff PO BID 0RF tamsulosin 0.4 mg capsule 0.4 mg PO BEDTIME Qty: 90 0RF Referrals: Brandy Aiken MD [Primary Care Provider] - 2 days (Patient has been started on sucralfate animal regimen as discussed with Gastroenterology, they also recommend that patient follow-up with his urologist. Please re-evaluate this patient in the next 2-3 days.) Print Language: Occitan
[2021-10-30 16:46] LABS: OBS Int Ctl Valid YES; OBS1 NEGATIVE (NEGATIVE)
--- NOTE | 2021-10-30 16:48 | PC.NURSE ---
pt a&ox3, vss, rectal examination completed by provider, labs drawn by tech.
[2021-10-30 16:56] LABS: Appearance Urine CLEAR; Color Urine YELLOW; Glucose Urine UA NEG (NEG); Leukocyte Esterase Urine NEG (NEG); Nitrite Urine NEG (NEG); Urine Blood NEG (NEG); Urine Ketones NEG (NEG); Urine Protein NEG (NEG-TRACE)
[2021-10-30 17:00] LABS: INTERNATIONAL NORM RATIO 1.1 (0.9-1.1)
[2021-10-30] MEDS: Lidocaine HCl 2 % Urojet 10 ML JEL.PF.APP TOPICAL (18:45)
--- NOTE | 2021-10-30 18:45 | PC.NURSE ---
medication given to pt per provider order, also gave education on sucralfate enema via medical interpreter.
== END 2021-10-30 19:02 | disposition home or self-care (01) ==
PROVIDERS: Emergency Provider Student in an Organized Health Care Education/Training Program; PCP Internal Medicine
DX: K62.89 Other specified diseases of anus and rectum (principal); K64.4 Residual hemorrhoidal skin tags; I10 Essential (primary) hypertension; E78.5 Hyperlipidemia, unspecified; Z85.46 Personal history of malignant neoplasm of prostate
CPT/HCPCS: 36415; 80048; 80076; 81003; 82272; 83690; 85025; 85610; 99284

== ENCOUNTER → 2021-11-03 14:56 | Outpatient (BNVA) | payer MEDICARE, MEDICAID, SELFPAY | PROVIDERS: PCP Internal Medicine; Referring Provider Internal Medicine; Visit Provider Nurse Practitioner | DX: Z12.11 Encounter for screening for malignant neoplasm of colon (principal); K62.5 Hemorrhage of anus and rectum; K64.4 Residual hemorrhoidal skin tags; K64.8 Other hemorrhoids | CPT/HCPCS: 99202 ==

== ENCOUNTER 2022-01-21 11:09 | Outpatient (REF) | payer MEDICARE, MEDICAID, SELFPAY ==
[2022-01-21 13:49] LABS: Alanine Aminotransferase 29 U/L (0-40); Alkaline Phosphatase 73 U/L (39-117); Anion Gap 10 (12-20); Aspartate Amino Transferase 21 U/L (5-37); Bilirubin Total 0.5 mg/dL (0.0-1.0); Blood Urea Nitrogen 9 mg/dL (9-16); Calcium 9.6 mg/dL (8.4-10.2); Carbon Dioxide 30 mmol/L (22-29); Chloride 103 mmol/L (96-108); Cholesterol 188 mg/dL; Estimated Glomerular Filt Rate > 60; Glucose Fasting 87 mg/dL (60-99); HDL Cholesterol 35 mg/dL; LDL Cholesterol Calculated 104 mg/dl; Potassium 4.2 mmol/L (3.3-5.1); Sodium 139 mmol/L (135-145); Triglycerides 248 mg/dL
[2022-01-21 14:20] LABS: Prostate Specific Antigen < 0.05 ng/mL (<0.05-4.0)
[2022-01-27 11:11] LABS: Testosterone, Total 27 ng/dL (250-1100)
== END 2022-01-21 11:10 | disposition home or self-care (01) ==
LOC: HO.LAB 11:09
PROVIDERS: PCP Internal Medicine; Visit Provider Urology
DX: Z12.5 Encounter for screening for malignant neoplasm of prostate (principal); C61 Malignant neoplasm of prostate; N13.8 Other obstructive and reflux uropathy; N40.1 Benign prostatic hyperplasia with lower urinary tract symptoms; E78.5 Hyperlipidemia, unspecified
CPT/HCPCS: 36415; 80053; 80061; 84153; 84403

== ENCOUNTER → 2022-01-29 11:17 | Outpatient (BNVA) | payer MEDICARE, MEDICAID, SELFPAY | PROVIDERS: PCP Internal Medicine; Visit Provider Urology | DX: C61 Malignant neoplasm of prostate (principal); N30.40 Irradiation cystitis without hematuria; K62.7 Radiation proctitis | CPT/HCPCS: Q3014 ==

== ENCOUNTER 2022-04-23 12:13 | Day surgery (SDC) | payer MEDICARE, MEDICAID, SELFPAY ==
[2022-04-23] VITALS (8 sets, daily range): BP systolic 134–161; BP diastolic 62–86; PULSE 59–73; RESP 16–18; TEMP 36.1–36.3; O2SAT 96–99; BMI 33.3
--- NOTE | ~2022-04-23 | XR_ITS ---
EXAMINATION: XR CHEST CLINICAL INFORMATION: Abdominal pain. Rule out perforation. Recent colonoscopy. COMPARISON: October 10, 2019. TECHNIQUE: Portable AP view of the chest was obtained. FINDINGS: No significant abnormality is noted involving the heart, lungs, mediastinum, bony thorax or soft tissues. No free air identified under the diaphragm. XR/XR chest 1V IMPRESSION: Normal portable chest AP.
--- NOTE | ~2022-04-23 | XR_ITS ---
EXAMINATION: XR ABDOMEN KUB CLINICAL INDICATION: Abdominal pain. Rule out perforation. COMPARISON: None TECHNIQUE: AP view of the abdomen. FINDINGS: No free air is identified. The bowel gas pattern appears unremarkable, with no evidence of ileus or obstruction. No unusual soft tissue calcifications are noted. The bones appear unremarkable. Presumed fiduciary markers project over the lower pelvis. XR/XR KUB IMPRESSION: No acute finding.
--- NOTE | 2022-04-23 12:22 | P.CONAN_ITS ---
HPI - Anesthesia Eval Consult details Narrative: 61 M for colonoscopy [facility] Active Problems Active Problems: All Active Problems (Updated 01/29/22 @ 12:18 by Rosales Zapata MD) Radiation proctitis (Acute) Radiation cystitis (Acute) Internal and external bleeding hemorrhoids (Acute) Colon cancer screening (Acute) Rectal bleeding (Acute) Cough (Acute) Dyslipidemia (Acute) Urinary urgency (Acute) GERD (gastroesophageal reflux disease) (Acute) Prostate cancer (Acute) Essential hypertension (Acute) Past Medical History Medical History Dyslipidemia Elevated PSA Essential hypertension GERD (gastroesophageal reflux disease) Hypogonadism in male Nocturia Rectal bleeding Family History Family History Father Hypertension Myocardial infarction Mother Hypertension Diabetes Paternal Aunt Breast cancer Family history of problems with anesthesia: No Surgical History Surgical History No pertinent past surgical history History of Problems with Anesthesia: No Social History Social History Housing: Apartment Alcohol intake: former Patient Tobacco Use Status: Former Tobacco user Tobacco use type: Cigarette e-Cigarette/Vaping Use: Never Used Second Hand Smoke Exposure: No service: No Current occupational status: disabled Meds Allergies Allergy/AdvReac Type Severity Reaction Status Date / Time No Known Allergies Allergy Verified 01/29/22 11:29 [No Known Allergies*] Home Medications Medication Instructions Recorded Confirmed Last Taken Type fluticasone propionate 115 2 puff PO BID 11/08/20 10/09/21 Unknown History mcg-salmeterol 21 mcg/actuation HFA inhaler Exam Exam Date and Time: April 23, 2022 1222 Airway Mallampati Class: III TM Dist: >3cm Neck ROM: Full Partial: Lower Loose/Missing/Broken Teeth: Yes (Chipped teeth and missing ) Heart: S1,S2 Lungs: b/l breath sounds Assessment and Plan Assessment Anesthesia Assessment: Anesthesia Plan Discussed and Chart Reviewed Final Anesthetic Review Family History of Problems with Anesthesia: No History of Problems with Anesthesia: No NPO: Yes ASA Class: III Final Preanesthetic Review: Meds/Allgs Chart Reviewed, Consent Obtained/Reviewed and Anes Risks/Benef Reviewed Patient Risk: Intermediate Procedure Risk: Intermediate Anesthetic Plan Anesthetic Plan: MAC: Disposition: Standard PACU
--- NOTE | 2022-04-23 12:29 | MHC.SHP ---
Pre-Procedural Eval Section A Date of Service: 04/23/22 Section B Chief Complaint: rectal bleeding Details of Present Illness: hx of radiation rx for prostate cancer Relevant Family History (Specify if Yes): No Relevant Social History: None Present Medications: see Short Stay Collaborative assessment (Dyslipidemia Elevated PSA Essential hypertension GERD (gastroesophageal reflux disease) Hypogonadism in male Nocturia Rectal bleeding) Medical History: Significant History (Dyslipidemia Elevated PSA Essential hypertension GERD (gastroesophageal reflux disease) Hypogonadism in male Nocturia Rectal bleeding) History of Previous Operations: No relevant previous surgery Allergies: Allergies Allergy/AdvReac Type Severity Reaction Status Date / Time No Known Allergies Allergy Verified 01/29/22 11:29 [No Known Allergies*] Review of Systems Sugical H&P ROS: Negative: Constitution, Cardiovascular, Respiratory, Neurological, Psychiatric, Hem-Onc, Allergic/Immunologic, Gastrointestinal, Genitourinary, Musculoskeletal, Integumentary, Endocrine and Eyes/Ears/Nose/Throat Exam Surgical H&P Exam: Normal: HEENT, Normal: Heart, Normal: Lungs, Normal: Extremities, Normal: Abdomen, Normal: Skin and Normal: Neurological Plan Diagnosis/Plan: Unchanged I have reviewed the history and physical and performed a pertinent physical examination on my patient. No changes have occurred unless specified.
--- NOTE | 2022-04-23 12:32 | W.PM.OPN ---
Operative Note Operative Note Date of Service: 04/23/22 Narrative: Operative Information Procedure Description: Colonoscopy Indication: rectal bleeding Anesthesia: MAC COLONOSCOPY Instrument: Olympus variable stiffness pediatric scope 190L Colonoscopy Monitoring: Vital signs and clinical assessment, continuous EKG monitoring, Pulse oximetry, Carbon Dioxide monitoring and blood pressure monitoring were done throughout the procedure. Colon withdrawal time was 15 minutes. Procedure: The patient was placed in the left lateral decubitis position and pre-procedure medications were administered. After a digital rectal examination of the ano-rectum, the video colonoscope was inserted into the rectum and advanced through the colon to the cecum/TI. The colonoscope was slowly withdrawn in a retrograde panoramic fashion and the colon mucosa was carefully examined including a retroflexed view of the rectum. Findings and interventions are described below. Procedure Difficulty: easy Findings: Terminal Ileum-normal Right sided retroflexion--normal Cecum:normal Ascending Colon: normal Transverse Colon -normal Descending Colon:normal Sigmoid Colon: 8-10 mm sessile polyp removed with cold snare Rectum: Retroflexion with small to medium sized internal hemorrhoids, grade I, many telangiectasia seen, some of which were bleeding, treated with APC Anorectum - normal Colon preparation: [place] Bowel Preparation Scale Right colon; 2 Transverse colon: 3 Left colon; 3 (0 = Unprepared colon segment with mucosa not seen due to solid stool that cannot be cleared. 1 = Portion of mucosa of the colon segment seen, but other areas of the colon segment not well seen due to staining, residual stool and/or opaque liquid. 2 = Minor amount of residual staining, small fragments of stool and/or opaque liquid, but mucosa of colon segment seen well. 3 = Entire mucosa of colon segment seen well with no residual staining, small fragments of stool or opaque liquid) Impression and Post Procedure Diagnosis: polyp internal hemorrhoids radiation proctitis Plan: High fiber diet leaflet Avoid straining at stool, epsom salts and sitz bath, anusol supps or cream Repeat Colonoscopy in 5 years if adenoma, 10 yrs if hyperpalstic or earlier if clinically indicated anusol cream or supp for internal hemorrhoids, can also use for radiation proctitis Above findings were reviewed with the patient and relevant handouts were provided if indicated.
--- NOTE | 2022-04-23 12:34 | ECG_ITS ---
Test Reason : IRREGULAR HEART RATE Blood Pressure : / mmHG Vent. Rate : 063 BPM Atrial Rate : 063 BPM P-R Int : 174 ms QRS Dur : 090 ms QT Int : 484 ms P-R-T Axes : 037 -10 -10 degrees QTc Int : 495 ms Sinus rhythm with Premature supraventricular complexes Minimal voltage criteria for LVH, may be normal variant ( R in aVL ) Nonspecific ST and T wave abnormality Prolonged QT Abnormal ECG When compared with ECG of 25-SEP-2021 00:40, Premature supraventricular complexes are now Present QT has lengthened Referred By: Valentín Ochoa Electronically Signed By:MICHELLE MOHR
--- NOTE | 2022-04-23 12:38 | PC.NURSE ---
pt rhythm has irregular hr ekg ordered by anesthesia denies c/p pwd ls clear
== END 2022-04-23 15:55 | disposition home or self-care (01) ==
PROVIDERS: PCP Internal Medicine; Visit Provider Internal Medicine Gastroenterology
PROC: 0DJD8ZZ Inspection of Lower Intestinal Tract, Via Natural or Artificial Opening Endoscopic (ICD-10-PCS; CPT 45378; principal; 2022-04-23 13:00)
DX: K62.5 Hemorrhage of anus and rectum (principal); K62.7 Radiation proctitis; K63.5 Polyp of colon; K64.8 Other hemorrhoids; K64.4 Residual hemorrhoidal skin tags; Z85.46 Personal history of malignant neoplasm of prostate; Y84.2 Radiological procedure and radiotherapy as the cause of abnormal reaction of the patient, or of later complication, without mention of misadventure at the time of the procedure; K21.9 Gastro-esophageal reflux disease without esophagitis; I10 Essential (primary) hypertension; E78.00 Pure hypercholesterolemia, unspecified; Z87.891 Personal history of nicotine dependence; G47.33 Obstructive sleep apnea (adult) (pediatric)
CPT/HCPCS: 45385; 45382; 71045; 74018; 88305; 93005; J0131

== ENCOUNTER → 2022-05-07 13:17 | Outpatient (BNVA) | payer MEDICARE, MEDICAID, SELFPAY | PROVIDERS: PCP Internal Medicine; Visit Provider Nurse Practitioner | DX: R10.9 Unspecified abdominal pain (principal); K21.9 Gastro-esophageal reflux disease without esophagitis; K62.5 Hemorrhage of anus and rectum; K62.7 Radiation proctitis; K64.4 Residual hemorrhoidal skin tags; K64.8 Other hemorrhoids; Z98.890 Other specified postprocedural states | CPT/HCPCS: 99212 ==

== ENCOUNTER 2022-06-04 13:40 | Outpatient (REF) | payer MEDICARE, MEDICAID, SELFPAY ==
[2022-06-04 15:46] LABS: Prostate Specific Antigen < 0.05 ng/mL (<0.05-4.0)
[2022-06-10 01:43] LABS: Testosterone, Total 101 ng/dL (250-1100)
== END 2022-06-04 13:41 | disposition home or self-care (01) ==
LOC: HO.LAB 13:40
PROVIDERS: PCP Internal Medicine; Visit Provider Urology
DX: Z12.5 Encounter for screening for malignant neoplasm of prostate (principal); R10.9 Unspecified abdominal pain; K62.7 Radiation proctitis; C61 Malignant neoplasm of prostate
CPT/HCPCS: 36415; 84153; 84403; 99212

== ENCOUNTER → 2022-06-12 11:41 | Outpatient (BNVA) | payer MEDICARE, MEDICAID, SELFPAY | PROVIDERS: PCP Internal Medicine; Visit Provider Urology | DX: K62.7 Radiation proctitis (principal); N30.41 Irradiation cystitis with hematuria; C61 Malignant neoplasm of prostate | CPT/HCPCS: Q3014 ==

== ENCOUNTER 2022-06-17 11:46 | Outpatient (REF) | payer MEDICARE, MEDICAID, SELFPAY ==
--- NOTE | ~2022-06-17 | XR_ITS ---
EXAMINATION: 1. RADIOGRAPHS LUMBAR SPINE 2. RADIOGRAPHS LEFT HIP CLINICAL INFORMATION: Low back and left hip pain COMPARISON: Abdominal KUB 04/23/2022 TECHNIQUE: 3 views of the lumbar spine and 2 views of the left hip were obtained. FINDINGS: Lumbar spine: 5 nonrib-bearing lumbar vertebral bodies are visualized. Alignment is within normal limits. Lumbar vertebral body heights and disc spaces are well-maintained. Minimal degenerative changes of the posterior elements of the lower lumbar spine. Sacroiliac joints are symmetric. Left hip: Visualized portion of the proximal left femur demonstrate no fracture. Left femoral head is well-seated within the acetabulum. Femoral acetabular joint space is well-maintained. No significant degenerative changes of the left hip. Punctate calcifications of the pelvis are likely vascular in nature. Brachytherapy seeds of the prostate gland project over the pubic symphysis. XR/XR lumbar spine 2-3V IMPRESSION: -Minimal degenerative changes of the lower lumbar spine without compression deformity. -Unremarkable radiographs of the left hip.
--- NOTE | ~2022-06-17 | XR_ITS ---
EXAMINATION: 1. RADIOGRAPHS LUMBAR SPINE 2. RADIOGRAPHS LEFT HIP CLINICAL INFORMATION: Low back and left hip pain COMPARISON: Abdominal KUB 04/23/2022 TECHNIQUE: 3 views of the lumbar spine and 2 views of the left hip were obtained. FINDINGS: Lumbar spine: 5 nonrib-bearing lumbar vertebral bodies are visualized. Alignment is within normal limits. Lumbar vertebral body heights and disc spaces are well-maintained. Minimal degenerative changes of the posterior elements of the lower lumbar spine. Sacroiliac joints are symmetric. Left hip: Visualized portion of the proximal left femur demonstrate no fracture. Left femoral head is well-seated within the acetabulum. Femoral acetabular joint space is well-maintained. No significant degenerative changes of the left hip. Punctate calcifications of the pelvis are likely vascular in nature. Brachytherapy seeds of the prostate gland project over the pubic symphysis. XR/XR hip LT min 2V IMPRESSION: -Minimal degenerative changes of the lower lumbar spine without compression deformity. -Unremarkable radiographs of the left hip.
== END 2022-06-17 11:47 | disposition home or self-care (01) ==
LOC: HO.XRAY 11:46
PROVIDERS: PCP Internal Medicine; Visit Provider Internal Medicine
DX: M25.552 Pain in left hip (principal); M54.50 Low back pain, unspecified
CPT/HCPCS: 72100; 73502

== ENCOUNTER 2022-06-24 08:00 | Outpatient (RCR) | payer MEDICARE, MEDICAID, SELFPAY | END 2022-07-23 13:58 | disposition home or self-care (01) | LOC: HO.WCC 08:00 | PROVIDERS: PCP Internal Medicine; Visit Provider Surgery | DX: K62.7 Radiation proctitis (principal); C61 Malignant neoplasm of prostate; R35.0 Frequency of micturition; N39.41 Urge incontinence; R35.1 Nocturia; I10 Essential (primary) hypertension; Z92.3 Personal history of irradiation; Z87.891 Personal history of nicotine dependence | CPT/HCPCS: 99213 ==

== ENCOUNTER → 2022-08-26 12:57 | Outpatient (BNVA) | payer MEDICARE, MEDICAID, SELFPAY | PROVIDERS: PCP Internal Medicine; Visit Provider Urology | DX: N30.41 Irradiation cystitis with hematuria (principal); K62.7 Radiation proctitis | CPT/HCPCS: 52000; 99212 ==

== ENCOUNTER 2022-09-24 09:16 | Outpatient (RCR) | payer MEDICARE, MEDICAID, SELFPAY ==
--- NOTE | ~2022-09-24 | XR_ITS ---
EXAMINATION: XR CHEST CLINICAL INFORMATION: Surgical prescreening. COMPARISON: Chest radiographs 04/23/2022, 10/10/2019 TECHNIQUE: 2 views of the chest were obtained. FINDINGS: Lungs clear. No airspace consolidation or groundglass opacity. No hyperinflation. Heart size normal. Costophrenic sulci are well-defined. Hilar and mediastinal contours and bony structures are unremarkable. XR/XR chest 2V IMPRESSION: Unremarkable examination.
[2022-09-24 11:29] LABS: MANUAL DIFF FLAG NO
[2022-09-24 11:38] LABS: Basophils Percent Auto 0.8 % (0-2); Eosinophils Absolute Auto 0.1 X10*3/uL (0.0-0.4); Eosinophils Percent Auto 2.5 % (0-4); Hematocrit 42.4 % (42.0-52.0); Hemoglobin 14.1 g/dl (14.0-18.0); Imm Gran Abs Auto 0.03 X10*3/uL (0.00-0.03); Imm Gran Pct Auto 0.6 % (0.0-0.4); Lymphocytes Absolute Auto 1.1 X10*3/uL (1.2-4.9); Lymphocytes Percent Auto 20.5 % (20-40); Mean Corpuscular HGB Conc 33.3 g/dl (31.0-36.0); Mean Corpuscular Hemoglobin 26.9 pg (27.0-33.0); Mean Corpuscular Volume 80.8 fL (80.0-98.0); Monocytes Absolute Auto 0.5 X10*3/uL (0.1-1.2); Monocytes Percent Auto 9.1 % (2-11); Neutrophils Absolute Auto 3.5 x10*3/uL (2.0-8.3); Neutrophils Percent Auto 66.5 % (45-73); Platelet Count 319 X10*3/uL (160-400); Red Blood Count 5.25 X10*6/uL (4.60-5.80); Red Cell Distribution Width 13.9 % (11.0-16.0); White Blood Count 5.3 X10*3/uL (4.8-10.8)
[2022-09-24 11:49] LABS: Estimated Average Glucose 114 mg/dL; Hemoglobin A1c % 5.6 %
[2022-09-24 12:15] LABS: Erythrocyte Sedimentation Rate 9 MM/HR (0-15)
[2022-09-24 12:46] LABS: Anion Gap 11 (12-20); Blood Urea Nitrogen 11 mg/dL (9-16); C Reactive Protein 1.49 mg/dL (< or = 0.50); Calcium 9.7 mg/dL (8.4-10.2); Carbon Dioxide 30 mmol/L (22-29); Chloride 99 mmol/L (96-108); Estimated Glomerular Filt Rate > 60; Glucose Random 79 mg/dL (60-115); Potassium 4.2 mmol/L (3.3-5.1); Sodium 136 mmol/L (135-145)
== END 2022-11-25 16:00 | disposition home or self-care (01) ==
LOC: HO.WCC 09:16
PROVIDERS: PCP Internal Medicine; Visit Provider Surgery
DX: N30.41 Irradiation cystitis with hematuria (principal); K62.7 Radiation proctitis; C61 Malignant neoplasm of prostate; K62.5 Hemorrhage of anus and rectum; R30.9 Painful micturition, unspecified; R35.0 Frequency of micturition; I10 Essential (primary) hypertension; Z87.891 Personal history of nicotine dependence
CPT/HCPCS: 36415; 71046; 80048; 83036; 84134; 85025; 85652; 86140; 99183; 99211; 99212; 99213

== ENCOUNTER → 2022-12-22 10:54 | Outpatient (BNVA) | payer MEDICARE, MEDICAID, SELFPAY | PROVIDERS: PCP Internal Medicine; Visit Provider Surgery | DX: K64.4 Residual hemorrhoidal skin tags (principal); K62.5 Hemorrhage of anus and rectum; K21.9 Gastro-esophageal reflux disease without esophagitis | CPT/HCPCS: 99202 ==

== ENCOUNTER 2023-01-13 05:44 | Day surgery (SDC) | payer MEDICARE, MEDICAID, SELFPAY ==
[2023-01-08 10:59] VITALS: BMI 35.2
--- NOTE | 2023-01-12 09:02 | HO.ANESPROP2 ---
Documented by User: Kristen Pablo NP 01/12/23 09:03 HPI - Anesthesia Eval Consult details Narrative: 62yo M for External Hemorrhoidectomy x2,lithotomy position s/p [place] 03/2022 with MAC PMFSH Active Problems Active Problems: All Active Problems (Updated 11/12/22 @ 09:25 by Brandy Mcguire MD) Prostate cancer (Acute) Urinary urgency (Acute) Cough (Acute) Colon cancer screening (Acute) Internal and external bleeding hemorrhoids (Acute) Radiation cystitis (Acute) Radiation proctitis (Acute) Abdominal cramping (Acute) Microscopic hematuria (Acute) Left buttock pain (Acute) Lumbar pain (Acute) Left hip pain (Acute) Irradiation cystitis with hematuria (Acute) Erectile dysfunction due to arterial insufficiency (Acute) Physical exam (Acute) Hemorrhoids (Acute) Rectal bleeding (Acute) Dyslipidemia (Acute) GERD (gastroesophageal reflux disease) (Acute) Essential hypertension (Acute) Past Medical History Medical History Dyslipidemia Elevated PSA Essential hypertension GERD (gastroesophageal reflux disease) Hypogonadism in male Nocturia Rectal bleeding Family History Family History Father Hypertension Myocardial infarction Mother Hypertension Diabetes Paternal Aunt Breast cancer Family history of problems with anesthesia: No Surgical History Surgical History (Updated 01/08/23 @ 10:56 by Pari Samuel RN) H/O colonoscopy History of Problems with Anesthesia: No Social History Social History Housing: Apartment Alcohol intake: former Patient Tobacco Use Status: Former Tobacco user Tobacco use type: Cigarette e-Cigarette/Vaping Use: Never Used Second Hand Smoke Exposure: No Are you DNR?: No Advance Directives: No Advance Directives Information Provided: Yes service: No Current occupational status: disabled Cognitive needs: No Hearing needs: No Vision needs: Yes Meds Allergies Allergy/AdvReac Type Severity Reaction Status Date / Time No Known Allergies Allergy Verified 12/22/22 11:04 [No Known Allergies*] Home Medications Medication Instructions Recorded Confirmed Last Taken Type finasteride 5 mg tablet 5 mg PO DAILY 06/04/22 01/08/23 Unknown History oxybutynin chloride 5 mg tablet 5 mg PO BEDTIME PRN bladder spasms 06/04/22 01/08/23 Unknown History Exam Exam Date and Time: January 12, 2023 0902 Height,Weight and Vital Signs: Height 5 ft 5 in Weight 96.162 kg Pertinent Lab Results Pertinent Lab Results: Laboratory Tests 09/24/22 09/24/22 11:29 11:29 WBC 5.3 Hgb 14.1 Hct 42.4 Plt Count 319 Sodium 136 Potassium 4.2 Chloride 99 Carbon Dioxide 30 H BUN 11 Creatinine 0.96 Narrative Narrative: EKG 03/2022 Vent. Rate : 063 BPM ? ? Atrial Rate : 063 BPM ?? P-R Int : 174 ms? QRS Dur : 090 ms ? ? QT Int : 484 ms ? ? ? P-R-T Axes : 037 -10 -10 degrees ?? QTc Int : 495 ms ? Sinus rhythm with Premature supraventricular complexes Minimal voltage criteria for LVH, may be normal variant ( R in aVL ) Nonspecific ST and T wave abnormality Prolonged QT Abnormal ECG When compared with ECG of 25-SEP-2021 00:40, Premature supraventricular complexes are now Present QT has lengthened Assessment and Plan Assessment Anesthesia Assessment: Chart Reviewed Final Anesthetic Review Family History of Problems with Anesthesia: No History of Problems with Anesthesia: No Documented by User: Andrew Austin MD 01/13/23 07:14 [facility] Past Medical History Medical History Dyslipidemia Elevated PSA Essential hypertension GERD (gastroesophageal reflux disease) Hypogonadism in male Nocturia Rectal bleeding Family History Family History Father Hypertension Myocardial infarction Mother Hypertension Diabetes Paternal Aunt Breast cancer Surgical History Surgical History (Updated 01/08/23 @ 10:56 by Pari Samuel RN) H/O colonoscopy Social History Social History Housing: Apartment Alcohol intake: former Patient Tobacco Use Status: Former Tobacco user Tobacco use type: Cigarette e-Cigarette/Vaping Use: Never Used Second Hand Smoke Exposure: No Are you DNR?: No Advance Directives: No Advance Directives Information Provided: Yes service: No Current occupational status: disabled Cognitive needs: No Hearing needs: No Vision needs: Yes Meds Allergies Allergy/AdvReac Type Severity Reaction Status Date / Time No Known Allergies Allergy Verified 12/22/22 11:04 [No Known Allergies*] Home Medications Medication Instructions Recorded Confirmed Last Taken Type finasteride 5 mg tablet 5 mg PO DAILY 06/04/22 01/08/23 Unknown History oxybutynin chloride 5 mg tablet 5 mg PO BEDTIME PRN bladder spasms 06/04/22 01/08/23 Unknown History Exam Airway Mallampati Class: II TM Dist: >3cm Neck ROM: Limited Heart: rrr Lungs: cta Assessment and Plan Assessment Anesthesia Assessment: Anesthesia Plan Discussed Final Anesthetic Review ASA Class: III Final Preanesthetic Review: No Changes in Pt Med Stat, Meds/Allgs Chart Reviewed, Consent Obtained/Reviewed and Anes Risks/Benef Reviewed Patient Risk: Intermediate Procedure Risk: Low Anesthetic Plan Anesthetic Plan: GA and Agree w/ Assess. and Plan Disposition: Standard PACU
--- NOTE | 2023-01-12 13:23 | MHC.SHP ---
Pre-Procedural Eval Section A Date of Service: 01/12/23 The patient is an INPATIENT: No Changes since office visit: No Cold of Flu in the past 2 weeks, No New Medical Problems, No Changes in Medication and No Patient answered all questions The History & Physical has been completed within 30 days and I have reviewed it.: Yes Section B Chief Complaint: Unspecified hemorrhoids Allergies: Allergies Allergy/AdvReac Type Severity Reaction Status Date / Time No Known Allergies Allergy Verified 12/22/22 11:04 [No Known Allergies*] Plan I have reviewed the history and physical and performed a pertinent physical examination on my patient. No changes have occurred unless specified. Time Spent With Patient Time: Total time managing care of this patient today ____ minutes.
[2023-01-13] VITALS (10 sets, daily range): BP systolic 109–150; BP diastolic 53–85; PULSE 50–72; RESP 18–20; TEMP 36.1–36.7; O2SAT 96–99
[2023-01-13] MEDS: Lactated Ringers 1,000 ML 100 ML IVCONT (06:33)
--- NOTE | 2023-01-13 08:07 | W.PM.OPN ---
Operative Note Operative Note Date of Service: 01/13/23 Narrative: Preoperative diagnosis: [] Symptomatic external hemorrhoids Postop diagnosis: [] Save Procedure [] hemorrhoidectomy Surgeon: [] Esteban Slash Trimmer: [] Type of Anesthesia: [] General Indication for surgery: [] Symptomatic enlarged external hemorrhoids 3 7 and 11:00 o'clock positions in lithotomy Findings: [] Patient brought to the operating room, placed in the operative table in a supine position, after adequate level of general anesthesia was induced, patient was placed in lithotomy position and position for hemorrhoidectomy. Digital exam demonstrated no gross endoluminal pathology. Patient had hemorrhoids at the 3 ,7 and 11 o'clock positions. Each was sequentially grasped with a grasper, retracted, and double fired ligature device transected at each hemorrhoidal base. The specimens were sent together for pathology. The wounds were irrigated, secured hemostasis, infiltrated with 1% lidocaine with 0.5 Marcaine mix, and Gelfoam followed by ABD pad placed. Sponge, needle, and instrument counts were reported to be correct. Patient tolerated the procedure well emerge from anesthesia stable condition. EBL minimal
== END 2023-01-13 09:51 | disposition home or self-care (01) ==
PROVIDERS: PCP Internal Medicine; Visit Provider Surgery
PROC: (CPT 46250; principal; 2023-01-13 07:30)
DX: K64.9 Unspecified hemorrhoids (principal); K64.4 Residual hemorrhoidal skin tags; K62.5 Hemorrhage of anus and rectum; K59.00 Constipation, unspecified; K21.9 Gastro-esophageal reflux disease without esophagitis; R97.20 Elevated prostate specific antigen [PSA]; E78.5 Hyperlipidemia, unspecified; I10 Essential (primary) hypertension; Z79.899 Other long term (current) drug therapy; Z87.891 Personal history of nicotine dependence
CPT/HCPCS: 46250; 88304; J0131; J0690; J1100; J1885; J2405; J2795; J3010

== ENCOUNTER → 2023-01-21 10:35 | Outpatient (BNVA) | payer MEDICARE, MEDICAID, SELFPAY | PROVIDERS: PCP Internal Medicine; Visit Provider Surgery | DX: Z48.815 Encounter for surgical aftercare following surgery on the digestive system (principal); Z87.19 Personal history of other diseases of the digestive system | CPT/HCPCS: 99212 ==

== ENCOUNTER 2023-02-10 10:43 | Outpatient (REF) | payer MEDICARE, MEDICAID, SELFPAY ==
[2023-02-10 12:47] LABS: Alanine Aminotransferase 24 U/L (0-40); Alkaline Phosphatase 97 U/L (39-117); Anion Gap 10 (12-20); Aspartate Amino Transferase 15 U/L (5-37); Bilirubin Total 0.5 mg/dL (0.0-1.0); Blood Urea Nitrogen 10 mg/dL (9-16); Calcium 8.7 mg/dL (8.4-10.2); Carbon Dioxide 26 mmol/L (22-29); Chloride 108 mmol/L (96-108); Cholesterol 188 mg/dL; Estimated Glomerular Filt Rate > 60; Glucose Fasting 103 mg/dL (60-99); HDL Cholesterol 34 mg/dL; LDL Cholesterol Calculated 109 mg/dl; Potassium 4.2 mmol/L (3.3-5.1); Sodium 140 mmol/L (135-145); Total Protein 6.7 g/dL (6.5-8.0); Triglycerides 228 mg/dL
[2023-02-10 13:22] LABS: Prostate Specific Antigen < 0.10 ng/mL (<0.05-4.0)
[2023-02-17 13:18] LABS: Testosterone, Total 120 ng/dL (250-1100)
== END 2023-02-10 10:44 | disposition home or self-care (01) ==
LOC: HO.LAB 10:43
PROVIDERS: PCP Internal Medicine; Visit Provider Urology
DX: Z00.00 Encounter for general adult medical examination without abnormal findings (principal); Z12.5 Encounter for screening for malignant neoplasm of prostate; C61 Malignant neoplasm of prostate
CPT/HCPCS: 36415; 80053; 80061; 84153; 84403

== ENCOUNTER 2023-05-11 11:38 | Outpatient (AMB) | payer MEDICARE, MEDICAID, SELFPAY ==
--- NOTE | 2023-05-11 11:50 | MHC.OFFVIS ---
Intake Intake Visit Reasons: LABS (missed 03/05 appt) Intake Note: Patient is present for Follow Up LABS Urology Med: Finasteride,Oxybutynin, tadalafil Antibiotic Allergy:None Blood Thinner: None Pharmacy: [facility] Allergies No Known Allergies [No Known Allergies*] Allergy (Verified 05/11/23 11:52) HPI HPI Comments History of Present Illness Details Luis M is pleasant male. He is a patient of Dr. Petty. 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 Diagnosis was reached by Aug 2019 , needle biopsy, for elevated PSA, PSA at diagnosis 7.6. The [place] grade is Aug 2019 Right side 5 of 6 cores , 5+5 = 10, with perineural invasion 50-90% each core. TNM Classification of Malignant Tumours (TNM) T1c. The [place] (NCCN) risk category is High Risk (PSA > 20, Gl 8+, T3) - Group 5 - no staging. Initial therapy included 01/26/20 GnRH, 08/08/20 GnRH 6m, 01/29/21 GnRH 04/15 XRT at [facility] with Dr Edmonds. Recent imaging included 01/14 MRI 1.8 cm lesion PiRADs 5, no ABBY Associated conditions - radiation cystitis, radiation proctitis Radiation cystitis radiation proctitis Cystoscopy 06/18 with mild to moderate radiation cystitis throughout the lower part of his bladder consistent with radiation effect PFSH Medical History Dyslipidemia Elevated PSA Essential hypertension GERD (gastroesophageal reflux disease) Hypogonadism in male Nocturia Rectal bleeding Surgical History H/O colonoscopy Hx of hemorrhoidectomy (01/13/23) Family History Father Hypertension Myocardial infarction Mother Hypertension Diabetes Paternal Aunt Breast cancer Social History Housing: Apartment Alcohol intake: former Patient Tobacco Use Status: Former Tobacco user Tobacco use type: Cigarette e-Cigarette/Vaping Use: Never Used Second Hand Smoke Exposure: No service: No Current occupational status: disabled Cognitive needs: No Hearing needs: No Vision needs: Yes Review of Systems Const Denies chills and Denies fever(s) Card Reports no additional complaints and Denies syncope Resp Denies cough GI Denies abdominal pain and Denies heartburn Reports as per HPI and Denies change in libido Neuro Denies syncope Psych Denies change in libido Endo Denies change in libido Physical Exam Const General: cooperative, healthy appearing, comfortable and no acute distress Orientation/consciousness: patient oriented x3 HEENT Face and sinus: Yes normal facial exam Mouth: moist mucous membranes Neck Neck: Yes normal visual inspection, Yes full ROM and Yes trachea midline Chest Chest palpation & inspection: normal inspection of the chest Resp Effort & Inspection: normal respiratory effort, able to speak in complete sentences and no respiratory distress GI Inspection: Yes normal to inspection Back/Spine/Pelvis Cervical Spine: normal cervical lordosis Thoracic/Lumbar Spine: thoracic and lumbar spine normal to inspection Skin General skin exam: no rashes or lesions noted Neuro General: patient oriented x3, gait normal, tone normal and moves all extremities Extrem General: Yes normal to inspection and Yes capillary refill normal Assessment & Plan Assessment & Plan (1) Prostate cancer: Comment: 09/14 Gl 5+5 multi core Code(s): C61 - Malignant neoplasm of prostate (2) Hydrocele in adult: Code(s): N43.3 - Hydrocele, unspecified (3) Urinary urgency: Code(s): R39.15 - Urgency of urination Plan Represcribed medications Scrotal ultrasound Orders: Orders Prostate Specific Antigen 6 Months C61 - Malignant neoplasm of prostate Testosterone, Total 6 Months C61 - Malignant neoplasm of prostate US scrotum Today N43.3 - Hydrocele, unspecified Patient Instructions: Imaging studies, laboratory and physical exam results were discussed and reviewed in detail. No major barriers to patient understanding were identified. An opportunity to ask questions regarding the treatment plan was provided. All questions were answered. The patient expressed understanding and agreement with the above treatment plan. The patient is aware they should contact our office by phone for worsening of their current condition or the appearance of new urologic symptoms. Compliance is encouraged with any medications and followup testing that is ordered. It is a privilege to participate in the urologic care of your patient. If you have any questions or concerns regarding treatment for the above conditions, or other urologic issues, please do not hesitate to contact me. The office telephone contact is [phone]. This note is constructed using voice recognition software. While every effort has been made to ensure accuracy music theory professor errors may have been included. Yours sincerely, Dr Rosales Zapata MD, [facility] - Urology Providers of Expert, Compassionate Care for the Genitourinary System Coding Level of Care Code Est Pt Level 4 (26217) Diagnoses Prostate cancer C61 Hydrocele in adult N43.3 Urinary urgency R39.15
== END 2023-05-11 12:09 | disposition home or self-care (01) ==
LOC: HO.HUSH 11:38
PROVIDERS: PCP Internal Medicine; Visit Provider Urology
DX: C61 Malignant neoplasm of prostate (principal); N43.3 Hydrocele, unspecified; R39.15 Urgency of urination
CPT/HCPCS: 99214

== ENCOUNTER → 2023-05-11 11:38 | Outpatient (BNVA) | payer MEDICARE, MEDICAID, SELFPAY | PROVIDERS: PCP Internal Medicine; Visit Provider Urology | DX: C61 Malignant neoplasm of prostate (principal); N43.3 Hydrocele, unspecified; R39.15 Urgency of urination | CPT/HCPCS: 99212 ==

== ENCOUNTER 2023-05-12 10:10 | Outpatient (AMB) | payer MEDICARE, MEDICAID, SELFPAY ==
[2023-05-12 10:13] VITALS: BP 160/60; PULSE 70; O2SAT 97; BMI 34.6
--- NOTE | 2023-05-12 10:13 | A.OFFPC_ITS ---
Vital Signs 05/12/23 10:13 05/12/23 11:39 Height 5 ft 5.5 in Weight 211 lb 2 oz BMI 34.6 BP 160/60 H 160/70 H Blood Pressure Location Lt brachial Lt brachial Position Sitting Sitting Pulse 70 Pulse Source Pulse Oximeter Pulse Oximetry (%) 97 Oxygen Delivery Method Room Air Intake Visit Reasons: lipids Intake Note: Pt is here for labs and BP F/U. 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 Accompanied by: Self / Same As Patient Allergies No Known Allergies [No Known Allergies*] Allergy (Verified 05/12/23 10:27) Medication List - Last Reconciled 05/12/23 by Brandy Mcguire MD acetaminophen ER 650 mg PO Q8H PRN albuterol sulfate 90 mcg/actuation (Ventolin HFA) 2 puffs PO Q4H PRN blood pressure monitor (Blood Pressure Kit) As directed dicyclomine 10 mg PO QID finasteride 5 mg PO DAILY hydrocodone-acetaminophen 5-325 mg 1 tab PO Q4-6H PRN hydrocortisone 2.5% (Anusol-HC) 1 appl [place] BEDTIME 14 days ibuprofen 600 mg PO Q6H PRN irbesartan-hydrochlorothiazide 300-12.5 mg 1 tab PO DAILY omeprazole 20 mg PO DAILY oxybutynin chloride 5 mg PO BEDTIME PRN 90 days sodium chloride 0.65% ([place] Saline) 1 spray intranasal BID PRN 30 days tadalafil 5 mg PO DAILY 90 days Tobacco use date assessed: 11/12/22 Dental Screening Dental Screen Date: 05/12/23 Did you have a dental visit in the last 12 months?: Yes Did you have a dental problem in the last 6 months where you did not have access to dental care?: No Was dental information given to patient?: Patient has dentist HPI HPI Comments History of Present Illness Details This is a 62-year-old male with hypertension and GERD that comes today for follow-up on his conditions. GERD stable with medications. Blood pressure elevated and he said he just took his medication. I will add low-dose amlodipine. Blood pressure will be recheck in 3 weeks by nurse navigator. He denies any chest pain or shortness of breath. [facility] Medical History Dyslipidemia Elevated PSA Essential hypertension GERD (gastroesophageal reflux disease) Hypogonadism in male Nocturia Rectal bleeding Surgical History H/O colonoscopy Hx of hemorrhoidectomy (01/13/23) Family History Father Hypertension Myocardial infarction Mother Hypertension Diabetes Paternal Aunt Breast cancer Social History Housing: Apartment Alcohol intake: former Patient Tobacco Use Status: Former Tobacco user Tobacco use type: Cigarette e-Cigarette/Vaping Use: Never Used Second Hand Smoke Exposure: No service: No Current occupational status: disabled Cognitive needs: No Hearing needs: No Vision needs: Yes Questionnaire Thrive Questionnaire Date Thrive assessed: 11/12/22 BARRETT-7 AMB Questionnaire BARRETT-7 Date BARRETT - 7 assessed: 11/12/22 Source: Developed by Drs. Emmett Barragan, Meka Gomez, David Okeefe and colleagues, with an educational shae from [employer]. Review of Systems Const All systems reviewed & are unremarkable except as noted in HPI and below Eyes Reports no additional complaints, Denies change in vision and Denies other visual disturbances Card Denies chest pain at rest, Denies chest pain with activity, Denies edema, Denies irregular heart rhythm, Denies claudication, Denies dyspnea, Denies dyspnea on exertion, Denies orthopnea, Denies paroxysmal nocturnal dyspnea and Denies slow heart rate Resp Denies cough, Denies dyspnea and Denies dyspnea on exertion GI Denies abdominal pain, Denies change in bowel habits, Denies excessive flatus, Denies nausea and Denies vomiting Denies urinary hesitancy, Denies urinary incontinence and Denies urinary urgency Musc Denies abnormal gait, Denies atrophy, Denies deformity and Denies limited range of motion Skin/Breast Denies bleeding lesions, Denies changing lesions and Denies rash Neuro Denies abnormal gait and Denies lack of coordination Physical exam (Primary Care) Vital Signs: Last Vital Signs Pulse 70 05/12/23 10:13 BP 160/60 H 05/12/23 10:13 Pulse Ox 97 05/12/23 10:13 Oxygen Delivery Method Room Air 05/12/23 10:13 BMI result Body Mass Index 34.6 Tobacco/Smoking Status: Tobacco use Status Tobacco use date assessed 11/12/22 05/12/23 10:21 Patient Tobacco Use Status Former Tobacco user 05/12/23 10:21 Tobacco use type Cigarette 05/12/23 10:21 e-Cigarette/Vaping Use Never Used 05/12/23 10:21 Thrive Assessment: Date of Thrive Assessment Date Thrive assessed 11/12/22 05/12/23 10:21 Eyes General: appearance normal, both eyes and all related structures Eyelids: Yes eyelids normal Conjunctivae: conjunctivae normal Neck Neck: Yes normal visual inspection and Yes supple Resp Effort & Inspection: normal respiratory effort Auscultation: clear to auscultation bilaterally Cardio Jugular venous distension: no JVD Rate: regular rate Rhythm: regular rhythm Heart sounds: S1 normal heart sound present and S2 normal heart sound present Extrem General: Yes full ROM Assessment and Plan Assessment & Plan (1) Essential hypertension: Code(s): I10 - Essential (primary) hypertension Plan: Continue irbesartan-hctz. Start amlodipine 2.5 mg. Recheck blood pressure with nurse navigator in 3 weeks. Blood pressure goal is equal or less than 130/80. (2) GERD (gastroesophageal reflux disease): Code(s): K21.9 - Gastro-esophageal reflux disease without esophagitis Qualifiers: Esophagitis presence: esophagitis presence not specified Qualified Code(s): K21.9 - Gastro-esophageal reflux disease without esophagitis Plan: Continue PPIs as needed Medications: New acetaminophen ER 650 mg PO Q8H 30 days PRN 90 tabs 2RF pain amlodipine 2.5 mg PO DAILY 90 days 90 tabs 1RF Refilled ibuprofen Take with food 600 mg PO Q6H PRN 20 tabs 0RF pain K64.4 - Residual hemorrhoidal skin tags, K64.8 - Other hemorrhoids dicyclomine 10 mg PO QID 120 caps 3RF R10.9 - Unspecified abdominal pain Coding Level of Care Code Est Pt Level 3 (33879) Diagnoses Essential hypertension I10 GERD (gastroesophageal reflux disease) K21.9 Esophagitis presence: esophagitis presence not specified Time Spent (min) 19
[2023-05-12 11:39] VITALS: BP 160/70
== END 2023-05-12 10:37 | disposition home or self-care (01) ==
PROVIDERS: Visit Provider Internal Medicine
DX: I10 Essential (primary) hypertension (principal); K21.9 Gastro-esophageal reflux disease without esophagitis
CPT/HCPCS: 99213

== ENCOUNTER 2023-05-26 10:26 | Outpatient (REF) | payer MEDICARE, MEDICAID, SELFPAY ==
--- NOTE | ~2023-05-26 | US_ITS ---
EXAMINATION: US SCROTUM CLINICAL INFORMATION: Hydrocele, unspecified. COMPARISON: None available. TECHNIQUE: A sonogram of the scrotum was performed assessing velasco-scale appearance and color Doppler flow. Spectral Doppler analysis of the arterial and venous flow were performed in the testes bilaterally. FINDINGS: RIGHT: Right testicle measures 3.0 x 1.5 x 2.2 cm, volume 5.2 mL. No focal abnormality is evident. Spectral Doppler analysis of the arterial and venous flow is normal in the right testis. Right epididymal head is normal in size. There is an epididymal cyst measuring 4 x 3 x 3 mm. No right varicocele is seen. There is a small hydrocele. Right epididymal Doppler flow is normal. LEFT: Left testicle measures 4.3 x 2.0 x 2.2 cm, volume 9.9 mL. No focal testicular parenchymal lesions are visualized. Spectral Doppler analysis of the arterial and venous flow is normal in the left testis. Left epididymal head is not well demonstrated but appears normal in size. No left varicocele is seen. There is a large left hydrocele. US/US scrotum IMPRESSION: Large left hydrocele. Small right hydrocele. No testicular abnormality is demonstrated.
== END 2023-05-26 10:27 | disposition home or self-care (01) ==
LOC: HO.HMGCX 10:26
PROVIDERS: PCP Internal Medicine; Visit Provider Urology
DX: N43.3 Hydrocele, unspecified (principal)
CPT/HCPCS: 76870

== ENCOUNTER 2023-07-13 23:14 | Emergency (ER) | payer OTHER, SELFPAY ==
[2023-07-13 23:40] VITALS: BP 163/89; PULSE 97; RESP 20; TEMP 39.1; O2SAT 94; BMI 29.6
[2023-07-13] MEDS: Ibuprofen 600 MG TABLET PO (23:53)
[2023-07-13] MEDS: Acetaminophen 325 MG TABLET 650 MG PO (23:53)
[2023-07-14 00:05] LABS: COVID-19 Test Positive (Negative); IDNOW Serial# BCCEAD1C
[2023-07-14 00:15] LABS: IDNOW Serial# 08D9AD1C; Influenza A Negative (Negative); Influenza B2 Negative (Negative)
--- NOTE | 2023-07-14 01:39 | ED.URI ---
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 He has no cp/sob. He is taking motrin and tylenol with some relief. He notes his daughter has been sick. MD elicited complaint: other (fevers, body aches, not feeling well) Onset (ago): day(s) (1) Consistency: constant Severity: moderate Description of mucous: clear Able to tolerate fluids by mouth: Yes Exacerbating factors: nothing Relieving factors: nothing Context: sick contacts Associated symptoms: fever, chills, rhinorrhea, nasal congestion and cough Treatments prior to arrival: acetaminophen and ibuprofen Related Data Home Medications Medication Instructions Recorded Confirmed finasteride 5 mg tablet 5 mg PO DAILY 06/04/22 05/12/23 Previous Rx's Medication Instructions Recorded blood pressure monitor (Blood #1 ea 04/01/22 Pressure Kit) hydrocortisone 2.5 % topical cream 1 appl [place] BEDTIME hemorrhoids 14 04/23/22 with perineal applicator days #30 grams (Anusol-HC) omeprazole 20 mg capsule,delayed 20 mg PO DAILY #90 caps 11/26/22 release hydrocodone 5 mg-acetaminophen 325 1 tab PO Q4-6H PRN pain #30 tabs 01/13/23 mg tablet sodium chloride 0.65 % nasal spray 1 spray intranasal BID PRN dry 02/10/23 aerosol ([place] Saline) nasal passages 30 days #50 mL irbesartan 300 1 tab PO DAILY #30 tabs 04/08/23 mg-hydrochlorothiazide 12.5 mg tablet oxybutynin chloride 5 mg tablet 5 mg PO BEDTIME PRN bladder spasms 05/11/23 90 days #90 tabs tadalafil 5 mg tablet 5 mg PO DAILY sexual activity 90 05/11/23 days #90 tabs acetaminophen 650 mg 650 mg PO Q8H PRN pain 30 days #90 05/12/23 tablet,extended release tabs amlodipine 2.5 mg tablet 2.5 mg PO DAILY 90 days #90 tabs 05/12/23 dicyclomine 10 mg capsule 10 mg PO QID #120 caps 05/12/23 ibuprofen 600 mg tablet 600 mg PO Q6H PRN pain #20 tabs 05/12/23 albuterol sulfate 90 mcg/actuation 2 puff PO Q4H PRN for wheezing 30 05/22/23 aerosol inhaler (Ventolin HFA) days #18 grams nirmatrelvir 300 mg (150 mg See Rx Instructions PO .COMPLEX 07/14/23 x2)-ritonavir 100 mg tablet,dose #30 ea pack (Paxlovid) Allergies Allergy/AdvReac Type Severity Reaction Status Date / Time No Known Allergies Allergy Verified 07/13/23 23:50 [No Known Allergies*] Review of Systems Review of Systems: Constitutional : positive Fever, positive Chills, positive fatigue, positive Malaise ENT/Mouth : positive sore throat, positive runny nose Eyes: No Discharge Cardiovascular : No Chest Pain, No SOB Respiratory : No Cough, No Sputum Gastrointestinal : No Nausea, No Vomiting, No Diarrhea Genitourinary : No Dysuria, No Urinary Frequency Musculoskeletal : positive Myalgia Skin : No rash Neuro : No Headache PMFSH Past Medical History Attestation statement: The following information was validated with the patient. Source: old records reviewed Medical History Rectal bleeding Dyslipidemia Nocturia Elevated PSA Hypogonadism in male GERD (gastroesophageal reflux disease) Essential hypertension Surgical History Hx of hemorrhoidectomy (01/13/23) H/O colonoscopy Family History Family History Father Hypertension Myocardial infarction Mother Hypertension Diabetes Paternal Aunt Breast cancer Social History Social History Housing: Apartment Alcohol intake: former Patient Tobacco Use Status: Former Tobacco user Tobacco use type: Cigarette e-Cigarette/Vaping Use: Never Used Second Hand Smoke Exposure: No Advance Directives: No Advance Directives Information Provided: No service: No Current occupational status: disabled Cognitive needs: No Hearing needs: No Vision needs: Yes Physical Exam Vital Signs: Vital Signs: Last Vital Signs Temp 102.3 F H 07/13/23 23:40 Pulse 97 07/13/23 23:40 Resp 20 07/13/23 23:40 BP 163/89 H 07/13/23 23:40 Pulse Ox 94 07/13/23 23:40 O2 Del Method Room Air 07/13/23 23:40 BMI result Body Mass Index 29.6 Appearance: Alert. Oriented X3. No acute distress. Eyes: Pupils equal, round and reactive to light. ENT: Pharynx normal. Neck: Normal inspection. Neck supple. CVS: Normal heart rate and rhythm. Pulses normal. Respiratory: No respiratory distress. Breath sounds normal. Abdomen: Soft and nontender. Skin: Skin warm and dry. Normal skin color. Normal skin turgor. Extremities: No lower extremity edema. Neuro: Oriented X 3. No motor deficit. No sensory deficit. Medications Administered Discontinued Medications Generic Name Dose Route Start Last Admin Trade Name Freq PRN Reason Stop Dose Admin Acetaminophen 650 mg 07/13/23 23:50 07/13/23 23:53 Acetaminophen 325 Mg Tablet PO 07/13/23 23:51 650 mg ONCE ONE Administration Ibuprofen 600 mg 07/13/23 23:50 07/13/23 23:53 Ibuprofen 600 Mg Tablet PO 07/13/23 23:51 600 mg ONCE ONE Administration Medical Decision Making Medical Decision Making MDM Narrative: 62 yo male with HTN, GERD, HLD here with c/o covid symptoms vaccinated x 2 no respiratory or chest pain - no hypoxia not toxic at this time stable for DC wants paxlovid lungs are CTAB. Differential Diagnosis Differential Diagnoses: The differential diagnosis associated with the presentation includes viral infection, covid, flu Admission/Observation Consideration of admission/observation: Escalation of care including admission/observation considered fever improved, no hypoxia stable for DC Lab Data [facility] Lab Attestation statement: I reviewed the patient's lab results. Labs: Lab Results 07/13/23 Range/Units 23:49 COVID-19 (ODIN) Positive A (Negative) COVID-19 Clin Com See Note Influenza Type A (JANETH) Negative (Negative) Influenza Type B (JANETH) Negative (Negative) Influenza A & B Note See Note External Record Review External record reviewed: Inpatient record Prescription Management I considered prescription management with: Antiviral Discharge Plan Discharge Clinical Impression: COVID-19 Patient Disposition: Home, Self-Care Instructions: COVID-19 (Coronavirus Disease 2019) (ED) Additional Instructions: while on paxlovid hold your amlodipine. return for chest pain, difficulty breathing, several vomiting episodes, inability to eat or drink, fainting or any other concerns. Mientras est? tomando paxlovid, mantenga moncada amlodipino. Regrese por dolor en el pecho, dificultad para respirar, varios episodios de v?mitos, incapacidad para comer o beber, desmayos o cualquier otra inquietud. Prescriptions: New Paxlovid 300 mg (150 mg x 2)-100 mg tablets,dose pack See Rx Instructions .ROUTE .COMPLEX Qty: 30 0RF Rx Instructions: take TWO 150 mg tablets of nirmatrelvir with ONE 100 mg tablet of ritonavir twice daily for 5 days No Action (DME) blood pressure monitor [Blood Pressure Kit] Kit See Rx Instructions .Route Qty: 1 0RF Rx Instructions: As directed omeprazole 20 mg capsule,delayed release(DR/EC) 20 mg PO DAILY Qty: 90 1RF [place] Saline 0.65 % aerosol,spray 1 spray intranasal BID PRN (Reason: dry nasal passages) 30 Days Qty: 50 0RF irbesartan-hydrochlorothiazide 300-12.5 mg tablet 1 tab PO DAILY Qty: 30 2RF tadalafil 5 mg tablet 5 mg PO DAILY 90 Days Qty: 90 1RF Rx Instructions: Daily medication albuterol sulfate [Ventolin HFA] 90 mcg/actuation HFA aerosol inhaler 2 puff PO Q4H PRN (Reason: for wheezing) 30 Days Qty: 18 6RF hydrocortisone [Anusol-HC] 2.5 % cream with perineal applicator 1 appl [place] BEDTIME 14 Days Qty: 30 1RF hydrocodone-acetaminophen 5-325 mg tablet 1 tab PO Q4-6H PRN (Reason: pain) Qty: 30 0RF Rx Instructions: Partial Fill upon patient request. acetaminophen 650 mg tablet extended release 650 mg PO Q8H PRN (Reason: pain) 30 Days Qty: 90 2RF ibuprofen 600 mg tablet 600 mg PO Q6H PRN (Reason: pain) Qty: 20 0RF Rx Instructions: Take with food dicyclomine 10 mg capsule 10 mg PO QID Qty: 120 3RF amlodipine 2.5 mg tablet 2.5 mg PO DAILY 90 Days Qty: 90 1RF finasteride 5 mg tablet 5 mg PO DAILY oxybutynin chloride 5 mg tablet 5 mg PO BEDTIME PRN (Reason: bladder spasms) 90 Days Qty: 90 1RF Print Language: Bangladeshi
[2023-07-14 02:01] VITALS: TEMP 37.4
== END 2023-07-14 02:43 | disposition home or self-care (01) ==
PROVIDERS: Emergency Provider Emergency Medicine; PCP Internal Medicine
DX: U07.1 COVID-19 (principal); R50.9 Fever, unspecified; M79.10 Myalgia, unspecified site; R05.9 Cough, unspecified; Z79.899 Other long term (current) drug therapy; Z87.891 Personal history of nicotine dependence
CPT/HCPCS: 87502; 87635; 99283; 99284

== ENCOUNTER 2023-08-06 13:59 | Outpatient (REF) | payer OTHER, SELFPAY ==
[2023-08-06 15:11] LABS: Influenza A PCR NEGATIVE (Negative); Influenza B PCR NEGATIVE (Negative); Resp Syncy Virus RNA Qual PCR NEGATIVE (Negative); SARS COV2 PCR INHOUSE NEGATIVE (Negative)
== END 2023-08-06 14:00 | disposition home or self-care (01) ==
LOC: HO.LAB 13:59
PROVIDERS: PCP Internal Medicine; Visit Provider Internal Medicine
DX: Z11.52 Encounter for screening for COVID-19 (principal); Z20.822 Contact with and (suspected) exposure to COVID-19; R09.89 Other specified symptoms and signs involving the circulatory and respiratory systems
CPT/HCPCS: 0241U

== ENCOUNTER 2023-12-16 12:17 | Outpatient (REF) | payer OTHER, SELFPAY ==
[2023-12-16 13:28] LABS: Prostate Specific Antigen < 0.10 ng/mL (<0.05-4.0)
[2023-12-22 16:13] LABS: Testosterone, Total 160 ng/dL (250-1100)
== END 2023-12-16 12:18 | disposition home or self-care (01) ==
LOC: HO.LAB 12:17
PROVIDERS: PCP Internal Medicine; Visit Provider Urology
DX: C61 Malignant neoplasm of prostate (principal); Z12.5 Encounter for screening for malignant neoplasm of prostate
CPT/HCPCS: 36415; 84153; 84403

== ENCOUNTER 2023-12-21 11:43 | Outpatient (AMB) | payer OTHER, SELFPAY ==
--- NOTE | 2023-12-21 11:50 | A.OFFVIS_ITS ---
Intake Intake Visit Reasons: 6M Scrotum US/PSA(set)Confirmed Intake Note: Patient is Present for Follow Up Ultrasound/PSA Urology Medication: Finasteride, Oxybutynin, Tadalafil Antibiotic Allergies:None Blood Thinners:None Allergies No Known Allergies [No Known Allergies*] Allergy (Verified 07/13/23 23:50) Medication List - Last Reconciled 12/21/23 by Rosales Zapata MD acetaminophen ER 650 mg PO Q8H PRN 30 days albuterol sulfate 90 mcg/actuation (Ventolin HFA) 2 puffs PO Q4H PRN 30 days amlodipine 2.5 mg PO DAILY 90 days blood pressure monitor (Blood Pressure Kit) As directed dicyclomine 10 mg PO QID finasteride 5 mg PO DAILY hydrocodone-acetaminophen 5-325 mg 1 tab PO Q4-6H PRN hydrocortisone 2.5% (Anusol-HC) 1 appl [place] BEDTIME 14 days ibuprofen 600 mg PO Q6H PRN irbesartan-hydrochlorothiazide 300-12.5 mg 1 tab PO DAILY nirmatrelvir-ritonavir 300 mg (150 mg x 2)-100 mg (Paxlovid) take TWO 150 mg tablets of nirmatrelvir with ONE 100 mg tablet of ritonavir twice daily for 5 days omeprazole 20 mg PO DAILY oxybutynin chloride 5 mg PO BEDTIME PRN 90 days sodium chloride 0.65% ([place] Saline) 1 spray intranasal BID PRN 30 days tadalafil 5 mg PO DAILY 90 days HPI HPI Comments History of Present Illness Details Luis M is pleasant male. He is a patient of Dr. Petty. 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 Diagnosis was reached by Aug 2019 , needle biopsy, for elevated PSA, PSA at diagnosis 7.6. The [place] grade is Aug 2019 Right side 5 of 6 cores , 5+5 = 10, with perineural invasion 50-90% each core. TNM Classification of Malignant Tumours (TNM) T1c. The D'West (NCCN) risk category is High Risk (PSA > 20, Gl 8+, T3) - Group 5 - no staging. Initial therapy included 01/26/20 GnRH, 08/08/20 GnRH 6m, 01/29/21 GnRH 04/15 XRT at [facility] with Dr Edmonds. Recent imaging included 01/14 MRI 1.8 cm lesion PiRADs 5, no ABBY Associated conditions - radiation cystitis, radiation proctitis Radiation cystitis radiation proctitis Cystoscopy 06/18 with mild to moderate radiation cystitis throughout the lower part of his bladder consistent with radiation effect PFSH Medical History Rectal bleeding Dyslipidemia Nocturia Elevated PSA Hypogonadism in male GERD (gastroesophageal reflux disease) Essential hypertension Surgical History Hx of hemorrhoidectomy (01/13/23) H/O colonoscopy Family History Father Hypertension Myocardial infarction Mother Hypertension Diabetes Paternal Aunt Breast cancer Social History Housing: Apartment Alcohol intake: former Patient Tobacco Use Status: Former Tobacco user Tobacco use type: Cigarette e-Cigarette/Vaping Use: Never Used Second Hand Smoke Exposure: No service: No Current occupational status: disabled Cognitive needs: No Hearing needs: No Vision needs: Yes Review of Systems Const Denies chills and Denies fever(s) Card Reports no additional complaints and Denies syncope Resp Denies cough GI Denies abdominal pain and Denies heartburn Reports as per HPI and Denies change in libido Neuro Denies syncope Psych Denies change in libido Endo Denies change in libido Physical Exam Const General: cooperative, healthy appearing, comfortable and no acute distress Orientation/consciousness: patient oriented x3 HEENT Face and sinus: Yes normal facial exam Mouth: moist mucous membranes Neck Neck: Yes normal visual inspection, Yes full ROM and Yes trachea midline Chest Chest palpation & inspection: normal inspection of the chest Resp Effort & Inspection: normal respiratory effort, able to speak in complete sentences and no respiratory distress GI Inspection: Yes normal to inspection Back/Spine/Pelvis Cervical Spine: normal cervical lordosis Thoracic/Lumbar Spine: thoracic and lumbar spine normal to inspection Skin General skin exam: no rashes or lesions noted Neuro General: patient oriented x3, gait normal, tone normal and moves all extremities Extrem General: Yes normal to inspection and Yes capillary refill normal Assessment & Plan Assessment & Plan (1) Prostate cancer: Comment: 09/14 Gl 5+5 multi core Code(s): C61 - Malignant neoplasm of prostate (2) Radiation cystitis: Comment: Urge frequency Code(s): N30.40 - Irradiation cystitis without hematuria (3) Hydrocele in adult: Code(s): N43.3 - Hydrocele, unspecified Plan Refill medication Risks, benefits and alternatives to therapy were discussed. These include but are not limited to infection, bleeding, damage to local organs and tissues, need for further interventions. Anesthetic risks regarding cardiac arrhythmia, blood clots, and potential mortality were discussed. The patient understands the typical recovery time and the outpatient nature of the procedure. After consideration of these risks the patient gives full informed consent and they wish to move ahead with the procedure. Left hydrocele aspiration in office Medications: Refilled tadalafil Daily medication 5 mg PO DAILY 90 tabs 1RF sexual activity 90 days N52.01 - Erectile dysfunction due to arterial insufficiency Patient Instructions: Imaging studies, laboratory and physical exam results were discussed and reviewed in detail. No major barriers to patient understanding were identified. An opportunity to ask questions regarding the treatment plan was provided. All questions were answered. The patient expressed understanding and agreement with the above treatment plan. The patient is aware they should contact our office by phone for worsening of their current condition or the appearance of new urologic symptoms. Compliance is encouraged with any medications and followup testing that is ordered. It is a privilege to participate in the urologic care of your patient. If you have any questions or concerns regarding treatment for the above conditions, or other urologic issues, please do not hesitate to contact me. The office telephone contact is [phone]. This note is constructed using voice recognition software. While every effort has been made to ensure accuracy foam gun operator errors may have been included. Yours sincerely, Dr Rosales Zapata MD, [facility] - Urology Providers of Expert, Compassionate Care for the Genitourinary System Coding Level of Care Code Est Pt Level 4 (94938) Diagnoses Prostate cancer C61 Radiation cystitis N30.40 Hydrocele in adult N43.3
== END 2023-12-21 12:06 | disposition home or self-care (01) ==
PROVIDERS: PCP Internal Medicine; Visit Provider Urology
DX: C61 Malignant neoplasm of prostate (principal); N30.40 Irradiation cystitis without hematuria; N43.3 Hydrocele, unspecified
CPT/HCPCS: 99214

== ENCOUNTER → 2023-12-21 11:43 | Outpatient (BNVA) | payer OTHER, SELFPAY | PROVIDERS: PCP Internal Medicine; Visit Provider Urology | DX: C61 Malignant neoplasm of prostate (principal); N30.40 Irradiation cystitis without hematuria; N43.3 Hydrocele, unspecified | CPT/HCPCS: 99212 ==

== ENCOUNTER 2024-01-26 10:17 | Outpatient (AMB) | payer OTHER, SELFPAY ==
--- NOTE | 2024-01-26 10:30 | MHC.OFFVIS ---
Intake Visit Reasons: testicular aspiration Intake Note: Patient is present for Testicular Aspiration Allergies No Known Allergies [No Known Allergies*] Allergy (Verified 07/13/23 23:50) HPI Comments Details: Luis M is pleasant male. He is a patient of Dr. Petty. 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 Diagnosis was reached by Aug 2019 , needle biopsy, for elevated PSA, PSA at diagnosis 7.6. The [place] grade is Aug 2019 Right side 5 of 6 cores , 5+5 = 10, with perineural invasion 50-90% each core. TNM Classification of Malignant Tumours (TNM) T1c. The D'West (NCCN) risk category is High Risk (PSA > 20, Gl 8+, T3) - Group 5 - no staging. Initial therapy included 01/26/20 GnRH, 08/08/20 GnRH 6m, 01/29/21 GnRH 04/15 XRT at [facility] with Dr Edmonds. Recent imaging included 01/14 MRI 1.8 cm lesion PiRADs 5, no ABBY Associated conditions - radiation cystitis, radiation proctitis Radiation cystitis radiation proctitis Cystoscopy 06/18 with mild to moderate radiation cystitis throughout the lower part of his bladder consistent with radiation effect PFSH Medical History Rectal bleeding Dyslipidemia Nocturia Elevated PSA Hypogonadism in male GERD (gastroesophageal reflux disease) Essential hypertension Surgical History Hx of hemorrhoidectomy (01/13/23) H/O colonoscopy Family History Father Hypertension Myocardial infarction Mother Hypertension Diabetes Paternal Aunt Breast cancer Social History Housing: Apartment Alcohol intake: former Patient Tobacco Use Status: Former Tobacco user Tobacco use type: Cigarette e-Cigarette/Vaping Use: Never Used Second Hand Smoke Exposure: No service: No Current occupational status: disabled Cognitive needs: No Hearing needs: No Vision needs: Yes Review of Systems Const Denies chills and Denies fever(s) Card Reports no additional complaints and Denies syncope Resp Denies cough GI Denies abdominal pain and Denies heartburn Reports as per HPI and Denies change in libido Neuro Denies syncope Psych Denies change in libido Endo Denies change in libido Physical Exam Const General: cooperative, healthy appearing, comfortable and no acute distress Orientation/consciousness: patient oriented x3 HEENT Face and sinus: Yes normal facial exam Mouth: moist mucous membranes Neck Neck: Yes normal visual inspection, Yes full ROM and Yes trachea midline Chest Chest palpation & inspection: normal inspection of the chest Resp Effort & Inspection: normal respiratory effort, able to speak in complete sentences and no respiratory distress GI Inspection: Yes normal to inspection Back/Spine/Pelvis Cervical Spine: normal cervical lordosis Thoracic/Lumbar Spine: thoracic and lumbar spine normal to inspection Skin General skin exam: no rashes or lesions noted Neuro General: patient oriented x3, gait normal, tone normal and moves all extremities Extrem General: Yes normal to inspection and Yes capillary refill normal Office Procedures Procedure Thyroid Biopsy Procedural Documentation: PreOperative Diagnosis: Left hydrocele Post Operative Diagnosis: Left hydrocele Procedure: Drainage of hydrocele with sclerotherapy in office Surgeon: Dr Rosales Zapata Anesthesia: Local Indications for procedure: Persistent hydrocele Procedure: Informed consent was verified and site confirmed The testicle was prepped using Betadine swab stick 1 cc subcutaneous injection performed at drainage site 10 cc 1% lidocaine placed in cord for cord block Testicle was elevated and 16 gauge Angiocath placed for drainage of hydrocele fluid 100 cc of fluid removed 20 cc of 200 mg doxycycline mixed with 1% lidocaine injected for sclerotherapy Procedure tolerated CPT 09412, ?[id number]? Assessment & Plan Assessment & Plan (1) Hydrocele in adult: Code(s): N43.3 - Hydrocele, unspecified Category: Medical Plan Aspiration with sclerosis performed. Four week follow-up Coding Level of Care Code Procedure Only Diagnoses Hydrocele in adult N43.3
== END 2024-01-26 10:59 | disposition home or self-care (01) ==
PROVIDERS: PCP Internal Medicine; Visit Provider Urology
DX: N43.3 Hydrocele, unspecified (principal)
CPT/HCPCS: 55000

== ENCOUNTER → 2024-01-26 10:17 | Outpatient (BNVA) | payer OTHER, SELFPAY | PROVIDERS: PCP Internal Medicine; Visit Provider Urology ==

== ENCOUNTER 2024-03-08 11:38 | Outpatient (AMB) | payer OTHER, SELFPAY ==
--- NOTE | 2024-03-08 11:51 | A.OFFVIS_ITS ---
Intake Visit Reasons: 4w follow up Intake Note: Patient is present for Hydrocele Aspiration follow up Director Of Consumer Affairs Required: Yes Director Of Consumer Affairs Language: Honduran Allergies No Known Allergies [No Known Allergies*] Allergy (Verified 07/13/23 23:50) HPI Comments Details: Luis M is pleasant male. He is a patient of Dr. Petty. He is seen for the following urologic condition - prostate cancer - hemorrhagic proctitis - radiation cystitis - with microscopic hematuria - left hydrocele - 03/20 aspiration Honduran translation provided in office by qualified medical records clerk Follow-up from testicular aspiration No reaccumulation of fluid 12 month follow-up PSA Prostate cancer 09/1419 grade group 5 Initial therapy external beam radiation with 2 years hormones last GnRH 01/29/21 PSA 11/17 <0.05, 02/14 <0.1, 07/17 <0.1 T 14, 01/16 <0.1 T 27, 06/18 <0.1 T 101, 02/16 <0.1 T 120, 12/18 <0.1 T 120 Prostate cancer was diagnosed Dr Zapata 09/14. Diagnosis was reached by Aug 2019 , needle biopsy, for elevated PSA, PSA at diagnosis 7.6. The [place] grade is Aug 2019 Right side 5 of 6 cores , 5+5 = 10, with perineural invasion 50-90% each core. TNM Classification of Malignant Tumours (TNM) T1c. The [place] (NCCN) risk category is High Risk (PSA > 20, Gl 8+, T3) - Group 5 - no staging. Initial therapy included 01/26/20 GnRH, 08/08/20 GnRH 6m, 01/29/21 GnRH 04/15 XRT at [facility] with Dr Edmonds. Recent imaging included 01/14 MRI 1.8 cm lesion PiRADs 5, no ABBY Associated conditions - radiation cystitis, radiation proctitis Radiation cystitis radiation proctitis Cystoscopy 06/18 with mild to moderate radiation cystitis throughout the lower part of his bladder consistent with radiation effect PFSH Medical History Rectal bleeding Dyslipidemia Nocturia Elevated PSA Hypogonadism in male GERD (gastroesophageal reflux disease) Essential hypertension Surgical History Hx of hemorrhoidectomy (01/13/23) H/O colonoscopy Family History Father Hypertension Myocardial infarction Mother Hypertension Diabetes Paternal Aunt Breast cancer Social History Housing: Apartment Alcohol intake: former Patient Tobacco Use Status: Former Tobacco user Tobacco use type: Cigarette e-Cigarette/Vaping Use: Never Used Second Hand Smoke Exposure: No service: No Current occupational status: disabled Cognitive needs: No Hearing needs: No Vision needs: Yes Review of Systems Const Denies chills and Denies fever(s) Card Reports no additional complaints and Denies syncope Resp Denies cough GI Denies abdominal pain and Denies heartburn Reports as per HPI and Denies change in libido Neuro Denies syncope Psych Denies change in libido Endo Denies change in libido Physical Exam Const General: cooperative, healthy appearing, comfortable and no acute distress Orientation/consciousness: patient oriented x3 HEENT Face and sinus: Yes normal facial exam Mouth: moist mucous membranes Neck Neck: Yes normal visual inspection, Yes full ROM and Yes trachea midline Chest Chest palpation & inspection: normal inspection of the chest Resp Effort & Inspection: normal respiratory effort, able to speak in complete sentences and no respiratory distress GI Inspection: Yes normal to inspection Back/Spine/Pelvis Cervical Spine: normal cervical lordosis Thoracic/Lumbar Spine: thoracic and lumbar spine normal to inspection Skin General skin exam: no rashes or lesions noted Neuro General: patient oriented x3, gait normal, tone normal and moves all extremities Extrem General: Yes normal to inspection and Yes capillary refill normal Assessment & Plan Assessment & Plan (1) Hydrocele in adult: Code(s): N43.3 - Hydrocele, unspecified Category: Medical Plan 12m f/u PSA Orders: Orders Prostate Specific Antigen 364 Days C61 - Malignant neoplasm of prostate Patient Instructions: Imaging studies, laboratory and physical exam results were discussed and re viewed in detail. No major barriers to patient understanding were identified. An opportunity to ask questions regarding the treatment plan was provided. All questions were answered. The patient expressed understanding and agreement with the above treatment plan. The patient is aware they should contact our office by phone for worsening of their current condition or the appearance of new urologic symptoms. Compliance is encouraged with any medications and followup testing that is ordered. It is a privilege to participate in the urologic care of your patient. If you have any questions or concerns regarding treatment for the above conditions, or other urologic issues, please do not hesitate to contact me. The office telephone contact is [phone]. This note is constructed using voice recognition software. While every effort has been made to ensure accuracy combat systems operator mine warfare errors may have been included. Yours sincerely, Dr Rosales Zapata MD, [facility] [place] [facility]rology Providers of Expert, Compassionate Care for the Genitourinary System Coding Level of Care Code Est Pt Level 3 (30861) Diagnoses Hydrocele in adult N43.3
== END 2024-03-08 12:17 | disposition home or self-care (01) ==
PROVIDERS: PCP Internal Medicine; Visit Provider Urology
DX: N43.3 Hydrocele, unspecified (principal)
CPT/HCPCS: 99213

== ENCOUNTER → 2024-03-08 11:38 | Outpatient (BNVA) | payer OTHER, SELFPAY | PROVIDERS: PCP Internal Medicine; Visit Provider Urology | DX: N43.3 Hydrocele, unspecified (principal) | CPT/HCPCS: 99212 ==

== ENCOUNTER 2024-06-06 12:36 | Outpatient (AMB) | payer OTHER, SELFPAY ==
--- NOTE | 2024-06-06 12:38 | MHC.PC.OV ---
Vital Signs 06/06/24 12:41 06/06/24 13:05 Height 5 ft 8 in Weight 201 lb BMI 30.6 BP 140/82 H 138/80 Blood Pressure Location Lt brachial Lt brachial Position Sitting Sitting Intake Visit Reasons: PE Intake Note: Patient here for a physical exam Jive Developer Required: No Accompanied by: Self / Same As Patient Allergies No Known Allergies [No Known Allergies*] Allergy (Verified 06/06/24 12:49) Medication List - Last Reconciled 06/06/24 by Brandy Mcguire MD acetaminophen ER 650 mg PO Q8H PRN 30 days albuterol sulfate 90 mcg/actuation (Ventolin HFA) 2 puffs PO Q4H PRN 30 days amlodipine 2.5 mg PO DAILY 90 days blood pressure monitor (Blood Pressure Kit) As directed dicyclomine 10 mg PO QID finasteride 5 mg PO DAILY hydrocodone-acetaminophen 5-325 mg 1 tab PO Q4-6H PRN hydrocortisone 2.5% (Anusol-HC) 1 appl AL BEDTIME 14 days ibuprofen 600 mg PO Q6H PRN irbesartan-hydrochlorothiazide 300-12.5 mg 1 tab PO DAILY omeprazole 20 mg PO DAILY oxybutynin chloride 5 mg PO BEDTIME PRN 90 days sodium chloride 0.65% ([place] Saline) 1 spray intranasal BID PRN 30 days tadalafil 20 mg PO ONCE PRN 30 days Tobacco use date assessed: 06/06/24 Dental Screening Dental Screen Date: 06/06/24 Did you have a dental visit in the last 12 months?: Yes Did you have a dental problem in the last 6 months where you did not have access to dental care?: No Was dental information given to patient?: Patient has dentist HPI HPI Comments History of Present Illness Details This is a 63-year-old male that comes for his physical exam. Colonoscopy done 2021 showing hyperplastic polyp. Complains of fecal incontinence and urge urinary incontinence and would like diapers. No chest pain or shortness on breath. PFSH Medical History Rectal bleeding Dyslipidemia Nocturia Elevated PSA Hypogonadism in male GERD (gastroesophageal reflux disease) Essential hypertension Surgical History Hx of hemorrhoidectomy (01/13/23) H/O colonoscopy Family History Father Hypertension Myocardial infarction Mother Hypertension Diabetes Paternal Aunt Breast cancer Social History Housing: Apartment Alcohol intake: former Patient Tobacco Use Status: Former Tobacco user Tobacco use type: Cigarette e-Cigarette/Vaping Use: Never Used Second Hand Smoke Exposure: No service: No Current occupational status: disabled Cognitive needs: No Hearing needs: No Vision needs: Yes Questionnaire PHQ-9 Over the last 2 weeks, how often have you been bothered by any of the following problems? 1. Little interest or pleasure in doing things: several days 2. Feeling down, depressed, or hopeless: not at all 3. Trouble falling or staying asleep, or sleeping too much: several days 4. Feeling tired or having little energy: several days 5. Poor appetite or overeating: several days 6. Feeling bad about yourself - or that you are a failure or have let yourself or your family down: not at all 7. Trouble concentrating on things, such as reading the newspaper or watching television: several days 8. Moving or speaking so slowly that other people could have noticed. Or the opposite - being so fidgety or restless that you have been moving around a lot more than usual: not at all 9. Thoughts that you would be better off or of hurting yourself in some way: not at all Total score: 5 Depression Screening Interpretation: Positive Depression Screening Follow-up: Existing condition, New Medication prescribed and Follow-up Visit Requested Depression Screening Done: Yes 44288 - PHQ-9 Billing: Yes Source: Developed by Drs. Emmett Barragan, Meka Gomez, David Okeefe and colleagues, with an educational shae from [employer]. Thrive Questionnaire Date Thrive assessed: 06/06/24 I am a: Patient What is your living situation today?: I have a steady place to live Within the past 12 months, did the food you bought not last and you didn't have the money to get more?: Never true Within the past 12 months, did you worry whether your food would run out before you got money to buy more?: Never true Do you have trouble paying for medicines?: No Do you have trouble getting transportation to medical appointments?: No Do you have trouble paying your heating and electricity bill?: No Do you have trouble taking care of your child, family member or friend?: No Do you have trouble with day-to-day activities such as bathing, preparing meals, shopping, managing finances, etc.?: No Are you currently unemployed and looking for a job?: I choose not to answer this question Are you interested in more education?: No Please select the resources that you would like help with: None Currently or been in a relationship where the following occur: I choose not to answer THRIVE Score: 0 AUDIT C Alcohol Use Questionnaire (AUDIT-C) 1. How often do you have a drink containing alcohol?: Never Total Score: 0 Score Reviewed/Action Taken: No BARRETT-7 AMB Questionnaire BARRETT-7 Date BARRETT - 7 assessed: 06/06/24 Feeling nervous, anxious, or on edge: 1 = Several days Not being able to stop or control worryin = Several days Worrying too much about different things: 1 = Several days Trouble relaxin = Several days Being so restless that it is hard to sit still: 1 = Several days Becoming easily annoyed or irritable: 0 = Not at all Feeling afraid as if something awful might happen: 1 = Several days Total BARRETT-7 score (0-4 normal; 5-9 mild; 10-14 moderate; 15-21 severe): 6 Source: Developed by Drs. Emmett Barragan, Meka Gomez, David Okeefe and colleagues, with an educational shae from [employer]. BARRETT-7 Assessment Billing BARRETT-7 Assessment Tool: BARRETT-7 Assessment 63368 Review of Systems Const All systems reviewed & are unremarkable except as noted in HPI and below Card Denies chest pain at rest, Denies chest pain with activity, Denies edema, Denies irregular heart rhythm, Denies claudication, Denies dyspnea, Denies dyspnea on exertion, Denies orthopnea, Denies paroxysmal nocturnal dyspnea and Denies slow heart rate Resp Denies cough, Denies dyspnea and Denies dyspnea on exertion GI Denies abdominal pain, Denies change in bowel habits, Denies excessive flatus, Reports fecal incontinence, Denies nausea and Denies vomiting Denies urinary hesitancy, Reports urinary incontinence and Denies urinary urgency Neuro Denies lack of coordination Physical exam (Primary Care) Vital Signs: Last Vital Signs BP 140/82 H 06/06/24 12:41 BMI result Body Mass Index 30.6 BMI Assessment/Plan discussion: High BMI High, discussed plan: lifestyle, weight reduction, dietary and physical activity Tobacco/Smoking Status: Tobacco use Status Tobacco use date assessed 06/06/24 06/06/24 12:44 Patient Tobacco Use Status Former Tobacco user 06/06/24 12:44 Tobacco use type Cigarette 06/06/24 12:44 e-Cigarette/Vaping Use Never Used 06/06/24 12:44 PHQ-9: PHQ-9 Score PHQ-9: Total score 5 06/06/24 12:44 Depression Screening Interpretation: Positive Depression Screening Follow-up: Existing condition, New Medication prescribed and Follow-up Visit Requested Thrive Assessment: Date of Thrive Assessment Date Thrive assessed 06/06/24 06/06/24 12:44 Currently or been in a relationship where the following occur: I choose not to answer HENMT Head: Yes normal to inspection, Yes normocephalic and Yes atraumatic Ears: external ears normal Eyes General: appearance normal, both eyes and all related structures Eyelids: Yes eyelids normal Conjunctivae: conjunctivae normal Neck Neck: Yes normal visual inspection and Yes supple Resp Effort & Inspection: normal respiratory effort Auscultation: clear to auscultation bilaterally Cardio Jugular venous distension: no JVD Rate: regular rate Rhythm: regular rhythm Heart sounds: S1 normal heart sound present and S2 normal heart sound present GI Inspection: Yes normal to inspection Palpation (GI): Soft to palpation and nontender Auscultation: normal bowel sounds Skin General skin exam: no rashes or lesions noted Neuro General: no focal motor deficits Extrem General: Yes full ROM Psych Appearance: grossly normal Assessment and Plan Assessment & Plan (1) Physical exam: Code(s): Z00.00 - Encounter for general adult medical examination without abnormal findings Plan: Repeat in a year. (2) Fecal incontinence: Code(s): R15.9 - Full incontinence of feces Plan: Use diapers as needed. Orders: Orders Lipid Panel Today Z00.00 - Encounter for general adult medical examination without abnormal findings Comprehensive [place]. Panel Fast Today Z00.00 - Encounter for general adult medical examination without abnormal findings Medications: New [adult diapers pull-ups] Use 1 diaper 8 times a day prn 240 ea 11RF N39.41 - Urge incontinence, R15.9 - Full incontinence of feces Coding Level of Care Code Est Pt Level 3 (98977) Est Pt Prev Care 40-64y(60516) Diagnoses Physical exam Z00.00 Fecal incontinence R15.9 Additional Codes BARRETT-7 Assessment Billing - BARRETT-7 Assessment Tool: BARRETT-7 Assessment 09105 ([id number]) Time Spent (min) 31
[2024-06-06 12:41] VITALS: BP 140/82; BMI 30.6
[2024-06-06 13:05] VITALS: BP 138/80
== END 2024-06-06 13:02 | disposition home or self-care (01) ==
PROVIDERS: PCP Internal Medicine; Visit Provider Internal Medicine
DX: Z00.00 Encounter for general adult medical examination without abnormal findings (principal); R15.9 Full incontinence of feces
CPT/HCPCS: 99396

== ENCOUNTER 2024-12-17 19:53 | Emergency (ER) | payer OTHER, SELFPAY ==
--- NOTE | ~2024-12-17 | XR_ITS ---
CLINICAL HISTORY: cough 2 view chest x-ray Comparison: CR/SR - XR CHEST 2V - 09/24/2022 11:46 AM EST Findings: No consolidation or effusion. Heart size is normal. No acute fracture. IMPRESSION: 1. No acute findings. This document has been electronically signed by: Akbar Balderrama MD on 12/17/2024 20:42:17
[2024-12-17 19:58] VITALS: BP 144/88; PULSE 87; RESP 18; TEMP 37; O2SAT 98; BMI 38.7
--- NOTE | 2024-12-17 20:10 | ED.GENADULT ---
HPI - General Adult General Chief complaint: General Medical Stated complaint: SOB w/ flu like symptoms Time Seen by Provider: 12/17/24 23:43 Source: patient, RN notes reviewed, old records reviewed and learning solutions specialist Mode of arrival: ambulatory Limitations: language barrier History of Present Illness ED Provider: Catherine HPI narrative: 63-year-old male with past medical history significant for asthma, obstructive sleep apnea, history of prostate cancer, GERD, hypertension presents for evaluation of shortness of breath Patient reports today is the 7th day of symptoms. He has been having cough, production of green sputum. Bilateral ear pain, body aches. He reports shortness of breath and wheezing. He has a nebulizer at home but reports he has not had the albuterol for quite some time He denies any sick contacts, recent travel Related Data Home Medications ?Medication ?Instructions ?Recorded ?Confirmed finasteride 5 mg tablet 5 mg PO DAILY 06/04/22 06/06/24 Previous Rx's ?Medication ?Instructions ?Recorded blood pressure monitor (Blood #1 ea 04/01/22 Pressure Kit) hydrocortisone 2.5 % topical cream 1 appl IA BEDTIME hemorrhoids 14 04/23/22 with perineal applicator days #30 grams (Anusol-HC) hydrocodone 5 mg-acetaminophen 325 1 tab PO Q4-6H PRN pain #30 tabs 01/13/23 mg tablet sodium chloride 0.65 % nasal spray 1 spray intranasal BID PRN dry 02/10/23 aerosol ([place]quille Saline) nasal passages 30 days #50 mL ibuprofen 600 mg tablet 600 mg PO Q6H PRN pain #20 tabs 05/12/23 dicyclomine 10 mg capsule 10 mg PO QID #120 caps 09/29/23 oxybutynin chloride 5 mg tablet 5 mg PO BEDTIME PRN bladder spasms 11/01/23 90 days #90 tabs tadalafil 20 mg tablet 20 mg PO ONCE PRN sexual activity 03/08/24 30 days #10 tabs adult diapers pull-ups #240 ea 06/06/24 albuterol sulfate 90 mcg/actuation 2 puff PO Q4H PRN for wheezing 30 09/02/24 aerosol inhaler (Ventolin HFA) days #18 grams omeprazole 20 mg capsule,delayed 20 mg PO DAILY #90 caps 10/12/24 release acetaminophen 650 mg 650 mg PO Q8H PRN pain 30 days #90 11/01/24 tablet,extended release tabs irbesartan 300 1 tab PO DAILY #30 tabs 11/10/24 mg-hydrochlorothiazide 12.5 mg tablet amlodipine 2.5 mg tablet 2.5 mg PO DAILY 90 days #90 tabs 11/18/24 albuterol sulfate 2.5 mg/3 mL 2.5 mg (3 mL) inhalation Q4-6H PRN 12/18/24 (0.083 %) solution for nebulization shortness of breath or wheezing #75 mL azithromycin 250 mg tablet 250 mg PO DAILY 4 days #4 tabs 12/18/24 prednisone 20 mg tablet 40 mg (2 x 20 mg) PO DAILY #8 tabs 12/18/24 Allergies Allergy/AdvReac Type Severity Reaction Status Date / Time No Known Allergies Allergy Verified 12/17/24 20:01 [No Known Allergies*] Review of Systems Constitutional: Constitutional: Denies body ache(s), Denies chills and Denies fever(s) Eyes: Eyes: Denies blurry vision ENT: Denies vertigo, Denies dizziness, Reports otalgia and Denies sore throat Cardiovascular: Cardiovascular: Reports dyspnea Respiratory: Respiratory: Reports change in phlegm color, Reports chest congestion, Reports cough, Reports dyspnea and Reports wheezing Gastrointestinal: Gastrointestinal: Denies abdominal pain, Denies nausea and Denies vomiting Musculoskeletal: Musculoskeletal: Denies back pain Integumentary/Breasts: Skin/Breast: Denies rash Neurologic: Denies vertigo and Denies dizziness Allergic/Immunologic: Allergic/Immunologic: Reports wheezing PMFSH Past Medical History Medical History Rectal bleeding Dyslipidemia Nocturia Elevated PSA Hypogonadism in male GERD (gastroesophageal reflux disease) Essential hypertension Surgical History Hx of hemorrhoidectomy (01/13/23) H/O colonoscopy Family History Family History (Updated 06/06/24 @ 12:54 by Brandy Mcguire MD) Father Hypertension Myocardial infarction Mother Hypertension Diabetes Paternal Aunt Breast cancer Social History Social History Housing: Apartment Alcohol intake: former Patient Tobacco Use Status: Former Tobacco user Tobacco use type: Cigarette e-Cigarette/Vaping Use: Never Used Second Hand Smoke Exposure: No Advance Directives: No Advance Directives Information Provided: No Do you have a plan to hurt others: No Plan service: No Current occupational status: disabled Cognitive needs: No Hearing needs: No Vision needs: Yes Physical Exam ED Vital Signs: Vital Signs - 24 hr 12/17/24 19:58 Temperature 98.6 F Pulse Rate 87 Respiratory Rate 18 Blood Pressure 144/88 H Pulse Oximetry 98 Oxygen Delivery Method Room Air BMI result Body Mass Index 38.7 Const General: healthy appearing, comfortable, no acute distress, alert and awake Nutritional Appearance: well nourished Orientation/consciousness: patient oriented x3 HENMT Head: Yes normocephalic and Yes atraumatic Throat: Yes posterior oropharynx normal Eyes Eyelids: Yes eyelids normal Conjunctivae: conjunctivae normal Sclerae: sclerae normal Corneas: corneas normal Pupils: Equal, round and reactive pupils present EOM: EOMs intact bilaterally Neck Neck: Yes full ROM Resp Effort & Inspection: normal respiratory effort, able to speak in complete sentences and not labored Auscultation: wheezes (Wheezing throughout) Cardio Rate: regular rate Rhythm: regular rhythm GI Inspection: No distended Palpation (GI): Soft to palpation, not firm, nontender, no guarding and not rigid Skin General skin exam: elasticity normal Neuro General: patient oriented x3 Cranial nerves: Yes Equal, round and reactive pupils present and Yes Bilaterally intact EOM present Cognition (Neuro): normal cognition Extrem Other: Moving all extremities well without any obvious deformities Course Course Course Narrative: This is a Rapid Medical Examination (RME) performed by Adrian Burgess PA-C in triage. Full HPI, ROS, assessment and treatment plan per primary provider in the Main ED. Hx: 63 yo male hx of GERD, HTN, prostate cancer here for eval of cough, chest pain on coughing only, sinus congestion, b/l ear pain/ congestion, and headache x1 wk. no known sick contacts. PE/vitals: congested cough. lungs w/o adventitious breath sounds Plan: viral swabs, cxr Medical Decision Making Medical Decision Making MDM Narrative: 63-year-old male presents for evaluation of cough, shortness of breath. He has no evidence of otitis media, chest x-ray does not show any evidence of pneumonia or pleural effusions. He is well-appearing with stable vital signs. He does have wheezing on exam consistent with an asthma exacerbation. Symptoms have been present for 1 week we will give him a Z-[place] to treat upper respiratory infection and associated asthma exacerbation with prednisone. I will refill his albuterol nebulizer Differential Diagnosis Differential Diagnoses: The differential diagnosis associated with the presentation includes Upper respiratory infection Asthma exacerbation Bronchitis Pneumonia CHF PE less likely Lab Data Labs: Lab Results 12/17/24 Range/Units 20:15 Influenza Type A (PCR) NEGATIVE (Negative) Influenza Type B (PCR) NEGATIVE (Negative) RSV RNA Qual (PCR) NEGATIVE (Negative) SARS-CoV-2 RNA (RT-PCR) NEGATIVE (Negative) Radiology Impression Discussion of test interpretation with radiology: I have reviewed the radiologist's reading. Radiologist Impression: Findings: No consolidation or effusion. Heart size is normal. No acute fracture. IMPRESSION: 1. No acute findings. This document has been electronically signed by: Akbar Balderrama MD on 12/17/2024 20:42:17 Discharge Plan Discharge Clinical Impression: Acute asthma exacerbation, Acute upper respiratory infection Patient Disposition: Home, Self-Care Instructions: Asthma (ED), Upper Respiratory Infection (ED) Additional Instructions: Your workup in the ER today was reassuring. You do not have pneumonia. Your viral testing was negative as well. You likely have an asthma exacerbation triggered by an upper respiratory infection. Finish the antibiotic prescription as prescribed. Take prednisone 40 mg daily I also ordered refills of your albuterol nebulizer solution Follow-up with your primary doctor, return for new or worsening symptom Prescriptions: New azithromycin 250 mg tablet 250 mg PO DAILY 4 Days Qty: 4 0RF Rx Instructions: start on day 2 of therapy prednisone 20 mg tablet 40 mg PO DAILY Qty: 8 0RF albuterol sulfate 2.5 mg /3 mL (0.083 %) solution for nebulization 2.5 mg inhalation Q4-6H PRN (Reason: shortness of breath or wheezing) Qty: 75 0RF No Action (DME) blood pressure monitor [Blood Pressure Kit] Kit See Rx Instructions .Route Qty: 1 0RF Rx Instructions: As directed [place] Saline 0.65 % aerosol,spray 1 spray intranasal BID PRN (Reason: dry nasal passages) 30 Days Qty: 50 0RF dicyclomine 10 mg capsule 10 mg PO QID Qty: 120 3RF oxybutynin chloride 5 mg tablet 5 mg PO BEDTIME PRN (Reason: bladder spasms) 90 Days Qty: 90 1RF albuterol sulfate [Ventolin HFA] 90 mcg/actuation HFA aerosol inhaler 2 puff PO Q4H PRN (Reason: for wheezing) 30 Days Qty: 18 6RF omeprazole 20 mg capsule,delayed release(DR/EC) 20 mg PO DAILY Qty: 90 1RF acetaminophen 650 mg tablet extended release 650 mg PO Q8H PRN (Reason: pain) 30 Days Qty: 90 2RF irbesartan-hydrochlorothiazide 300-12.5 mg tablet 1 tab PO DAILY Qty: 30 2RF amlodipine 2.5 mg tablet 2.5 mg PO DAILY 90 Days Qty: 90 1RF hydrocortisone [Anusol-HC] 2.5 % cream with perineal applicator 1 appl IA BEDTIME 14 Days Qty: 30 1RF hydrocodone-acetaminophen 5-325 mg tablet 1 tab PO Q4-6H PRN (Reason: pain) Qty: 30 0RF Rx Instructions: Partial Fill upon patient request. ibuprofen 600 mg tablet 600 mg PO Q6H PRN (Reason: pain) Qty: 20 0RF Rx Instructions: Take with food (DME) adult diapers pull-ups X-large See Rx Instructions .Route .MEDSUPPLY Qty: 240 11RF Rx Instructions: Use 1 diaper 8 times a day prn finasteride 5 mg tablet 5 mg PO DAILY tadalafil 20 mg tablet 20 mg PO ONCE PRN (Reason: sexual activity) 30 Days Qty: 10 1RF Rx Instructions: Daily medication Print Language: Dutch
[2024-12-17 20:59] LABS: Influenza A PCR NEGATIVE (Negative); Influenza B PCR NEGATIVE (Negative); Resp Syncy Virus RNA Qual PCR NEGATIVE (Negative); SARS COV2 PCR INHOUSE NEGATIVE (Negative)
--- NOTE | 2024-12-18 | PC.NURSE ---
Provider to bedside for primary eval. Awaiting med and RT for nebulizer, aware of plan of care.
[2024-12-18] MEDS: Azithromycin 500 MG TABLET PO (00:15)
[2024-12-18] MEDS: predniSONE 20 MG TABLET 40 MG PO (00:15)
[2024-12-18 00:16] VITALS: BP 161/77; PULSE 71; RESP 18; TEMP 37; O2SAT 97
[2024-12-18] MEDS: Albuterol Sulfate 2.5 MG, Albuterol/Iprat 2.5/0.5MG 3 ML 3 ML INHALE (00:21)
--- NOTE | 2024-12-18 00:29 | PC.NURSE ---
Pt medicated per MAR, RT to bedside for treatment.
[2024-12-18 00:56] VITALS: BP 161/77; PULSE 71; RESP 18; TEMP 37; O2SAT 97
== END 2024-12-18 00:56 | disposition home or self-care (01) ==
PROVIDERS: Physician Assistant Medical; Emergency Provider Emergency Medicine; PCP Internal Medicine
DX: J06.9 Acute upper respiratory infection, unspecified (principal); R05.9 Cough, unspecified; R06.02 Shortness of breath; J45.901 Unspecified asthma with (acute) exacerbation
CPT/HCPCS: 0241U; 71046; 99284

== ENCOUNTER → 2024-12-17 19:59 | Outpatient (BNV) | payer OTHER, SELFPAY | PROVIDERS: PCP Internal Medicine; Visit Provider Student in an Organized Health Care Education/Training Program | DX: R05.9 Cough, unspecified (principal) | CPT/HCPCS: 71046 ==

== ENCOUNTER 2025-03-15 13:28 | Outpatient (REF) | payer OTHER, SELFPAY ==
[2025-03-15 14:38] LABS: Prostate Specific Antigen < 0.10 ng/mL (<0.05-4.0)
--- OUTSIDE RECORDS SUMMARY | 2025-03-15 14:39 | XMS_ITS | Clinical Summary ---
Author Organization [facility] Address [address] [place] [address] Care Team Providers Care Finance Executive Name Role Phone Unavailable Primary Care Provider Unavailabl e Social History Tobacco Use Types Packs/Day Years Used Date Smoking Tobacco: Never Assessed Sex and Gender Information Value Date Recorded Sex Assigned at Not on file Legal Sex Male 6:11 PM EST Gender Identity Not on file Sexual Orientation Not on file Plan of Treatment Health Maintenance Due Date Last Done Comments Hepatitis C Virus Screening 1960 HIV Screening 12/24/1975 DTaP/Tdap/Td Vaccines (1 - Tdap) 1981 Pneumococcal Vaccines 50+ (1 of 1 - PCV) 2012 Zoster (Shingles) Vaccine (1 of 2) 2012 COVID-19 Vaccine ( - 2023-2 5 season) 2024 RSV Vaccine 60 years and old er and Patients (1 - 1-dose 75+ series) 2037 Hepatitis B Vaccines Aged Out No long er eligible based on patient's age to complete this topic
== END 2025-03-15 13:29 | disposition home or self-care (01) ==
LOC: HO.LAB 13:28
PROVIDERS: PCP Internal Medicine; Visit Provider Urology
DX: C61 Malignant neoplasm of prostate (principal); Z12.5 Encounter for screening for malignant neoplasm of prostate
CPT/HCPCS: 36415; 84153

== ENCOUNTER 2025-05-10 10:11 | Outpatient (AMB) | payer OTHER, SELFPAY ==
--- NOTE | 2025-05-10 10:19 | MHC.OFFVIS ---
Intake Visit Reasons: 1y/PSA Intake Note: Patient is present for : 12MO FOLLOW UP UROLOGY MEDICATIONSX: FINASTERIDE, OXYBUTYNIN, TADALAFIL BLOOD THINNERS: NONE LABS DONE 03/15/25: PSA <0.10 Customer Success Representative Required: Yes Customer Success Representative Language: Hong Konger Accompanied by: Self / Same As Patient Allergies No Known Allergies (No Known Allergies*) Allergy (Verified 05/10/25 10:20) HPI Comments Details: Luis M is pleasant male. He is a patient of Dr. Petty. He is seen for the following urologic condition - prostate cancer - hemorrhagic proctitis - radiation cystitis - with microscopic hematuria - left hydrocele - 03/20 aspiration Hong Konger translation provided in office by qualified medical technologist Twelve month follow-up PSA remains well-controlled now out at 5 years Does have persistent urinary urgency Trial oxybutynin 10 mg p.o. daily Prostate cancer 09/1419 grade group 5 Initial therapy external beam radiation with 2 years hormones last GnRH 01/29/21 PSA 11/17 <0.05, 02/14 <0.1, 07/17 <0.1 T 14, 01/16 <0.1 T 27, 06/18 <0.1 T 101, 02/16 <0.1 T 120, 12/18 <0.1 T 120, 03/21 <0.1 Prostate cancer was diagnosed Dr Zapata 09/14. Diagnosis was reached by Aug 2019 , needle biopsy, for elevated PSA, PSA at diagnosis 7.6. The Marianela grade is Aug 2019 Right side 5 of 6 cores , 5+5 = 10, with perineural invasion 50-90% each core. TNM Classification of Malignant Tumours (TNM) T1c. The [place] (NCCN) risk category is High Risk (PSA > 20, Gl 8+, T3) - Group 5 - no staging. Initial therapy included 01/26/20 GnRH, 08/08/20 GnRH 6m, 01/29/21 GnRH 04/15 XRT at [facility] with Dr Edmonds. Recent imaging included 01/14 MRI 1.8 cm lesion PiRADs 5, no ABBY Associated conditions - radiation cystitis, radiation proctitis Radiation cystitis radiation proctitis Cystoscopy 06/18 with mild to moderate radiation cystitis throughout the lower part of his bladder consistent with radiation effect [facility] Medical History Rectal bleeding Dyslipidemia Nocturia Elevated PSA Hypogonadism in male GERD (gastroesophageal reflux disease) Essential hypertension Surgical History Hx of hemorrhoidectomy (01/13/23) H/O colonoscopy Family History (Updated 06/06/24 @ 12:54 by Brandy Mcguire MD) Father Hypertension Myocardial infarction Mother Hypertension Diabetes Paternal Aunt Breast cancer Social History Housing: Apartment Alcohol intake: former Patient Tobacco Use Status: Former Tobacco user Tobacco use type: Cigarette e-Cigarette/Vaping Use: Never Used Second Hand Smoke Exposure: No service: No Current occupational status: disabled Cognitive needs: No Hearing needs: No Vision needs: Yes Review of Systems Const Denies chills and Denies fever(s) Card Reports no additional complaints and Denies syncope Resp Denies cough GI Denies abdominal pain and Denies heartburn Reports as per HPI and Denies change in libido Neuro Denies syncope Psych Denies change in libido Endo Denies change in libido Physical Exam Const General: cooperative, healthy appearing, comfortable and no acute distress Orientation/consciousness: patient oriented x3 HEENT Face and sinus: Yes normal facial exam Mouth: moist mucous membranes Neck Neck: Yes normal visual inspection, Yes full ROM and Yes trachea midline Chest Chest palpation & inspection: normal inspection of the chest Resp Effort & Inspection: normal respiratory effort, able to speak in complete sentences and no respiratory distress GI Inspection: Yes normal to inspection Back/Spine/Pelvis Cervical Spine: normal cervical lordosis Thoracic/Lumbar Spine: thoracic and lumbar spine normal to inspection Skin General skin exam: no rashes or lesions noted Neuro General: patient oriented x3, gait normal, tone normal and moves all extremities Extrem General: Yes normal to inspection and Yes capillary refill normal Assessment & Plan Assessment & Plan (1) Radiation cystitis: Comment: Urge frequency Code(s): N30.40 - Irradiation cystitis without hematuria Category: Medical (2) Prostate cancer: Comment: 09/14 Gl 5+5 multi core Code(s): C61 - Malignant neoplasm of prostate Category: Medical Plan Three-month follow-up trial oxybutynin Medications: New oxybutynin chloride ER 10 mg PO DAILY 90 tabs 0RF 90 days N30.40 - Irradiation cystitis without hematuria Discontinued tadalafil Daily medication Discontinued Reason: Doctor's Order 20 mg PO ONCE 30 days PRN 10 tabs 1RF sexual activity N52.01 - Erectile dysfunction due to arterial insufficiency Patient Instructions: This note is constructed using voice recognition software. While every effort has been made to ensure accuracy national park ranger errors may have been included. Imaging studies, laboratory and physical exam results were discussed and reviewed in detail. No major barriers to patient understanding were identified. An opportunity to ask questions regarding the treatment plan was provided. All questions were answered. The patient expressed understanding and agreement with the above treatment plan. The patient is aware they should contact our office by phone for worsening of their current condition or the appearance of new urologic symptoms. Compliance is encouraged with any medications and followup testing that is ordered. It is a privilege to participate in the urologic care of your patient. If you have any questions or concerns regarding treatment for the above conditions, or other urologic issues, please do not hesitate to contact me. The office telephone contact is [phone]. Sincerely, Dr Rosales Zapata MD, [facility] - Urology Compassionate Specialist Care for the Genitourinary System Coding Level of Care Code Est Pt Level 4 (76451) Complex EM visit Add On G2211 Diagnoses Radiation cystitis N30.40 Prostate cancer C61
--- OUTSIDE RECORDS SUMMARY | 2025-05-10 10:53 | XMS_ITS | Clinical Summary ---
Author Organization [facility] Address [address] [place] [address] Care Team Providers Care Client Account Manager Name Role Phone Unavailable Primary Care Provider [...]
== END 2025-05-10 10:44 | disposition home or self-care (01) ==
PROVIDERS: PCP Internal Medicine; Visit Provider Urology
DX: N30.40 Irradiation cystitis without hematuria (principal); C61 Malignant neoplasm of prostate
CPT/HCPCS: 99214; G2211

== ENCOUNTER → 2025-05-10 10:11 | Outpatient (BNVA) | payer OTHER, SELFPAY | PROVIDERS: PCP Internal Medicine; Visit Provider Urology | DX: C61 Malignant neoplasm of prostate (principal); N30.40 Irradiation cystitis without hematuria; N52.01 Erectile dysfunction due to arterial insufficiency | CPT/HCPCS: 99212 ==

== ENCOUNTER 2025-06-12 10:07 | Outpatient (AMB) | payer OTHER, SELFPAY ==
[2025-06-12 10:10] VITALS: BP 172/96; PULSE 70; O2SAT 98; BMI 37.8
--- NOTE | 2025-06-12 10:10 | MHC.PC.OV ---
Vital Signs 06/12/25 10:10 Height 5 ft 1 in Weight 200 lb BMI 37.8 BP 172/96 H Blood Pressure Location Lt brachial Position Sitting Pulse 70 Pulse Source Pulse Oximeter Pulse Oximetry (%) 98 Oxygen Delivery Method Room Air Intake Visit Reasons: Annual Exam Special Education Para Professional Required: No Accompanied by: Self / Same As Patient Allergies No Known Allergies (No Known Allergies*) Allergy (Verified 06/12/25 10:35) Medication List - Last Reconciled 06/12/25 by Brandy Mcguire MD acetaminophen ER 650 mg PO Q8H PRN 30 days [adult diapers pull-ups Use 1 diaper 8 times a day prn] albuterol sulfate 2.5 mg (3 mL) inhalation Q4-6H PRN albuterol sulfate 90 mcg/actuation (Ventolin HFA) 2 puffs PO Q4H PRN 30 days amlodipine 2.5 mg PO DAILY 90 days blood pressure monitor (Blood Pressure Kit) As directed hydrocodone-acetaminophen 5-325 mg 1 tab PO Q4-6H PRN hydrocortisone 2.5% (Anusol-HC) 1 appl [place] BEDTIME 14 days irbesartan-hydrochlorothiazide 300-12.5 mg 1 tab PO DAILY omeprazole 20 mg PO DAILY oxybutynin chloride ER 10 mg PO DAILY 90 days Tobacco use date assessed: 06/12/25 Dental Screening Dental Screen Date: 06/12/25 Did you have a dental visit in the last 12 months?: Yes Did you have a dental problem in the last 6 months where you did not have access to dental care?: No Was dental information given to patient?: Patient has dentist HPI HPI Comments History of Present Illness Details The patient is a 64-year-old male presenting with a physical examination and management of chronic conditions. The patient has a history of hypertension, currently managed with amlodipine 2.5 mg daily, which is being increased to 5 mg due to elevated blood pressure readings. He reports dizziness and sleepiness as side effects, leading to non-compliance with the medication regimen. He underwent hemorrhoid surgery in 2022 and is followed by urology for urinary incontinence. The patient had a colonoscopy in 2021 revealing hyperplastic polyps, with the next colonoscopy scheduled for 2031. There is a family history of hypertension, with both parents having suffered from it. The patient has a history of smoking and alcohol use, both of which he ceased over 25 years ago. He reports experiencing mild depression, which is being monitored. [facility] Medical History (Updated 06/12/25 @ 10:51 by Brandy Mcguire MD) Rectal bleeding Dyslipidemia Nocturia Elevated PSA Hypogonadism in male GERD (gastroesophageal reflux disease) Essential hypertension Surgical History Hx of hemorrhoidectomy (01/13/23) H/O colonoscopy Family History Father Hypertension Myocardial infarction Mother Hypertension Diabetes Paternal Aunt Breast cancer Social History Housing: Apartment Alcohol intake: former Patient Tobacco Use Status: Former Tobacco user Tobacco use type: Cigarette e-Cigarette/Vaping Use: Never Used Second Hand Smoke Exposure: No service: No Current occupational status: disabled Cognitive needs: No Hearing needs: No Vision needs: Yes Questionnaire PHQ-9 Over the last 2 weeks, how often have you been bothered by any of the following problems? 1. Little interest or pleasure in doing things: several days 2. Feeling down, depressed, or hopeless: several days 3. Trouble falling or staying asleep, or sleeping too much: several days 4. Feeling tired or having little energy: several days 5. Poor appetite or overeating: several days 6. Feeling bad about yourself - or that you are a failure or have let yourself or your family down: not at all 7. Trouble concentrating on things, such as reading the newspaper or watching television: more than half the days 8. Moving or speaking so slowly that other people could have noticed. Or the opposite - being so fidgety or restless that you have been moving around a lot more than usual: more than half the days 9. Thoughts that you would be better off or of hurting yourself in some way: not at all Total score: 9 Depression Screening Interpretation: Positive Depression Screening Follow-up: Existing condition and Follow-up Visit Requested Depression Screening Done: Yes 04672 - PHQ-9 Billing: Yes Source: Developed by Drs. Emmett Barragan, Meka Gomez, David Okeefe and colleagues, with an educational shae from [employer]. Thrive Questionnaire Date Thrive assessed: 06/12/25 I am a: Patient What is your living situation today?: I have a steady place to live Within the past 12 months, did the food you bought not last and you didn't have the money to get more?: Sometimes True Within the past 12 months, did you worry whether your food would run out before you got money to buy more?: Sometimes True Do you have trouble paying for medicines?: No Do you have trouble getting transportation to medical appointments?: No Do you have trouble paying your heating and electricity bill?: Yes Do you have trouble taking care of your child, family member or friend?: No Do you have trouble with day-to-day activities such as bathing, preparing meals, shopping, managing finances, etc.?: No Are you currently unemployed and looking for a job?: I choose not to answer this question Are you interested in more education?: I choose not to answer this question Please select the resources that you would like help with: None Currently or been in a relationship where the following occur: No concerns reported THRIVE Score: 3 AUDIT C Alcohol Use Questionnaire (AUDIT-C) 1. How often do you have a drink containing alcohol?: Never Total Score: 0 Score Reviewed/Action Taken: No BARRETT-7 AMB Questionnaire BARRETT-7 Date BARRETT - 7 assessed: 06/06/24 Feeling nervous, anxious, or on edge: 1 = Several days Not being able to stop or control worryin = Several days Worrying too much about different things: 1 = Several days Trouble relaxin = Several days Being so restless that it is hard to sit still: 1 = Several days Becoming easily annoyed or irritable: 0 = Not at all Feeling afraid as if something awful might happen: 1 = Several days Total BARRETT-7 score (0-4 normal; 5-9 mild; 10-14 moderate; 15-21 severe): 6 Source: Developed by Drs. Emmett Barragan, Meka Gomez, David Okeefe and colleagues, with an educational shae from [employer]. BARRETT-7 Assessment Billing BARRETT-7 Assessment Tool: BARRETT-7 Assessment 15594 Review of Systems Const All systems reviewed & are unremarkable except as noted in HPI and below Card Denies chest pain at rest, Denies chest pain with activity, Denies edema, Denies irregular heart rhythm, Denies claudication, Denies dyspnea, Denies dyspnea on exertion, Denies orthopnea, Denies paroxysmal nocturnal dyspnea and Denies slow heart rate Resp Denies cough, Denies dyspnea and Denies dyspnea on exertion GI Denies abdominal pain, Denies change in bowel habits, Denies excessive flatus, Denies nausea and Denies vomiting Denies urinary hesitancy, Denies urinary incontinence and Denies urinary urgency Neuro Denies lack of coordination Physical exam (Primary Care) Vital Signs: Last Vital Signs Pulse 70 06/12/25 10:10 BP 172/96 H 06/12/25 10:10 Pulse Ox 98 06/12/25 10:10 Oxygen Delivery Method Room Air 06/12/25 10:10 BMI result Body Mass Index 37.8 BMI Assessment/Plan discussion: High BMI High, discussed plan: lifestyle, weight reduction, dietary and physical activity Tobacco/Smoking Status: Tobacco use Status Tobacco use date assessed 06/12/25 06/12/25 10:12 Patient Tobacco Use Status Former Tobacco user 06/12/25 10:12 Tobacco use type Cigarette 06/12/25 10:12 e-Cigarette/Vaping Use Never Used 06/12/25 10:12 PHQ-9: PHQ-9 Score PHQ-9: Total score 9 06/12/25 10:12 Depression Screening Interpretation: Positive Depression Screening Follow-up: Existing condition and Follow-up Visit Requested Thrive Assessment: Date of Thrive Assessment Date Thrive assessed 06/12/25 06/12/25 10:12 Currently or been in a relationship where the following occur: No concerns reported [facility] Head: Yes normal to inspection, Yes normocephalic and Yes atraumatic Ears: external ears normal Eyes General: appearance normal, both eyes and all related structures Eyelids: Yes eyelids normal Conjunctivae: conjunctivae normal Neck Neck: Yes normal visual inspection and Yes supple Resp Effort & Inspection: normal respiratory effort Auscultation: clear to auscultation bilaterally Cardio Jugular venous distension: no JVD Rate: regular rate Rhythm: regular rhythm Heart sounds: S1 normal heart sound present and S2 normal heart sound present GI Inspection: Yes normal to inspection Palpation (GI): Soft to palpation and nontender Auscultation: normal bowel sounds Skin General skin exam: no rashes or lesions noted Neuro General: no focal motor deficits Extrem General: Yes full ROM Psych Appearance: grossly normal Coding Level of Care Code Est Pt Level 3 (04289) Est Pt Prev Care 40-64y(99498) Diagnoses Physical exam Z00.00 Urge urinary incontinence N39.41 Mild persistent asthma without complication J45.30 Asthma complication type: uncomplicated Essential hypertension I10 Mild recurrent major depression F33.0 Additional Codes BARRETT-7 Assessment Billing - BARRETT-7 Assessment Tool: BARRETT-7 Assessment 83550 ([id number]) PHQ-9 - 76061 - PHQ-9 Billing: Yes ([id number]) Time Spent (min) 32 Assessment & Plan Assessment & Plan (1) Physical exam: Code(s): Z00.00 - Encounter for general adult medical examination without abnormal findings Category: Medical (2) Urge urinary incontinence: Code(s): N39.41 - Urge incontinence Category: Medical (3) Mild persistent asthma: Code(s): J45.30 - Mild persistent asthma, uncomplicated Category: Medical Qualifiers: Asthma complication type: uncomplicated Qualified Code(s): J45.30 - Mild persistent asthma, uncomplicated (4) Essential hypertension: Code(s): I10 - Essential (primary) hypertension Category: Medical (5) Mild recurrent major depression: Code(s): F33.0 - Major depressive disorder, recurrent, mild Category: Medical Plan Plan Patient was informed and verbally consented to the use of an ambient scribe for clinic note documentation during this visit. 1. Encounter for general adult medical examination without abnormal findings Z00.00 The patient had a colonoscopy in 2021 revealing hyperplastic polyps, with the next colonoscopy scheduled for 2031 as part of routine surveillance. 2. Essential (primary) hypertension I10 The patient's hypertension is currently managed with amlodipine, which is being increased from 2.5 mg to 5 mg due to persistently elevated blood pressure readings. The patient reports dizziness and sleepiness as side effects, leading to non-compliance with the medication regimen. A follow-up blood pressure check is scheduled in three weeks to assess the effectiveness of the dosage adjustment. 3. Unspecified urinary incontinence R32 The patient is followed by urology for urinary incontinence, with no new interventions discussed during this visit. 4. Major depressive disorder, recurrent, mild F33.0 HCC 59 The patient reports mild depression, which is being monitored, with no specific treatment changes discussed during this visit. Orders: Orders Lipid Panel Today Z00.00 - Encounter for general adult medical examination without abnormal findings Comprehensive [place]. Panel Fast Today Z00.00 - Encounter for general adult medical examination without abnormal findings Medications: New irbesartan 300 mg PO DAILY 90 tabs 1RF 90 days nebulizers (AeroEclipse II Nebulizer) As directed 1 ea 0RF J45.30 - Mild persistent asthma, uncomplicated hydrochlorothiazide 25 mg PO DAILY 90 tabs 1RF 90 days Refilled [adult diapers pull-ups] Use 1 diaper 8 times a day prn 240 ea 11RF N39.41 - Urge incontinence, R15.9 - Full incontinence of feces Discontinued hydrocodone-acetaminophen 5-325 mg Partial Fill upon patient request. Discontinued Reason: Patient Completed Course 1 tab PO Q4-6H PRN 30 tabs 0RF pain irbesartan-hydrochlorothiazide 300-12.5 mg Discontinued Reason: Patient Completed Course 1 tab PO DAILY 30 tabs 2RF amlodipine Discontinued Reason: Patient Refused 2.5 mg PO DAILY 90 days 90 tabs 1RF
--- OUTSIDE RECORDS SUMMARY | 2025-06-12 13:12 | XMS_ITS | Clinical Summary ---
Author Organization [facility] Address [address] [place] [address] Care Team Providers Care Food Service Clerk Name Role Phone Unavailable Primary Care Provider [...] Vaccine (1 of 2) 2012 COVID-19 Vaccine (1 - 2023-2 5 season) 2025 RSV Vaccine 60 years and old er and Patients (1 - 1-dose 75+ series) 2037 Hepatitis B Vaccines Aged Out No long er eligible based on patient's age to complete this topic
== END 2025-06-12 10:49 | disposition home or self-care (01) ==
LOC: HO.HMCH 10:08
PROVIDERS: PCP Internal Medicine; Visit Provider Internal Medicine
DX: Z00.00 Encounter for general adult medical examination without abnormal findings (principal); N39.41 Urge incontinence; J45.30 Mild persistent asthma, uncomplicated; I10 Essential (primary) hypertension; F33.0 Major depressive disorder, recurrent, mild

== ENCOUNTER → 2025-06-12 10:07 | Outpatient (BNVA) | payer OTHER, SELFPAY | PROVIDERS: PCP Internal Medicine; Visit Provider Internal Medicine | DX: Z00.00 Encounter for general adult medical examination without abnormal findings (principal); I10 Essential (primary) hypertension; N39.41 Urge incontinence; J45.30 Mild persistent asthma, uncomplicated; F33.0 Major depressive disorder, recurrent, mild; R15.9 Full incontinence of feces | CPT/HCPCS: 96127; 99212; 99396 ==

== ENCOUNTER 2025-08-13 10:12 | Emergency (ER) | payer OTHER, SELFPAY ==
--- NOTE | ~2025-08-13 | XR_ITS ---
EXAMINATION: XR CHEST CLINICAL INFORMATION: Coughing. Pneumonia? COMPARISON: 12/17/2024, 09/24/2022. TECHNIQUE: PA view of the chest was obtained. FINDINGS: The cardiac, hilar, and mediastinal contours are normal. The lungs are clear bilaterally. No pneumothorax or effusion. No focal osseous or soft tissue abnormality. XR/XR chest 1V IMPRESSION: No active pulmonary disease. Electronically signed by: Juan José Dinh MD 08/13/2025 12:32 PM SER[facility]
[2025-08-13 10:56] VITALS: BP 180/77; PULSE 70; RESP 18; TEMP 36.6; O2SAT 96; BMI 33.3
--- NOTE | 2025-08-13 10:59 | ED_ITS ---
HPI - General Adult General Chief complaint: Upper Respiratory Symptoms Stated complaint: Cough Congestion Running Nose Time Seen by Provider: 08/13/25 11:17 Source: patient Mode of arrival: ambulatory Limitations: no limitations History of Present Illness ED Provider: Finn Low HPI narrative: 64-year-old male with past medical history of asthma presents to the ED for coughing yellow phlegm now green, body aches, chills, headache, and sore throat for 9 days. Patient denies any shortness of breath or chest pain. Patient denies any leg swelling. Related Data Previous Rx's ?Medication ?Instructions ?Recorded blood pressure monitor (Blood #1 ea 04/01/22 Pressure Kit) hydrocortisone 2.5 % topical cream 1 appl IN BEDTIME h emorrhoids 14 04/23/22 with perineal applicator days #30 grams (Anusol-HC) albuterol sulfate 90 mcg/actuation 2 puff PO Q4H PRN f or wheezing 30 04/25/25 aerosol inhaler (Ventolin HFA) days #18 grams omeprazole 20 mg capsule,delayed 20 mg PO DAILY #90 ca ps 05/06/25 release oxybutynin chloride 10 mg 10 mg PO DAILY 90 days #90 t abs 05/10/25 tablet,extended release 24 hr acetaminophen 650 mg 650 mg PO Q8H PRN pain 30 da ys #90 06/04/25 tablet,extended release tabs hydrochlorothiazide 25 mg tablet 25 mg PO DAILY 90 day s #90 tabs 06/12/25 irbesartan 300 mg tablet 300 mg PO DAILY 90 days #90 tabs 06/12/25 nebulizers (AeroEclipse II #1 ea 06/12/25 Nebulizer) adult diapers pull-ups #240 ea 06/19/25 albuterol sulfate 2.5 mg/3 mL 2.5 mg (3 mL) inhalation Q4-6H PRN 08/10/25 (0.083 %) solution for nebulization shortness of breat h or wheezing #75 mL azithromycin 250 mg tablet See Rx Instructions PO .COM PLEX #6 08/13/25 tabs benzonatate 200 mg capsule 200 mg PO TID PRN cough 5 d ays #15 08/13/25 caps prednisone 20 mg tablet 40 mg (2 x 20 mg) PO DAILY 5 days 08/13/25 #10 tabs Allergies Allergy/AdvReac Type Severity Reaction Status Date / Time No Known Allergies (No Known Allergy Verified 08/13/25 10:57 Allergies*) Review of Systems Review of Systems: Coughing up green-yellow phlegm, sore throat, body aches chills Yes all other systems are reviewed and are negative [facility] Past Medical History Medical History Rectal bleeding Dyslipidemia Nocturia Elevated PSA Hypogonadism in male GERD (gastroesophageal reflux disease) Essential hypertension Surgical History Hx of hemorrhoidectomy (01/13/23) H/O colonoscopy Family History Family History Father Hypertension Myocardial infarction Mother Hypertension Diabetes Paternal Aunt Breast cancer Social History Social History Housing: Apartment Alcohol intake: former Patient Tobacco Use Status: Former Tobacco user Tobacco use type: Cigarette e-Cigarette/Vaping Use: Never Used Second Hand Smoke Exposure: No Advance Directives: No Advance Directives Information Provided: Yes service: No Current occupational status: disabled Cognitive needs: No Hearing needs: No Vision needs: Yes Physical Exam ED Vital Signs: Vital Signs - 24 hr 08/13/25 10:56 08/13/25 13:55 Temperature 98 F 98 F Pulse Rate 70 70 Respiratory Rate 18 18 Blood Pressure 180/77 H 180/77 H Pulse Oximetry 96 96 Oxygen Delivery Method Room Air Room Air BMI result Body Mass Index 33.3 Const General: cooperative, healthy appearing, comfortable, no acute distress, well developed, alert and awake Orientation/consciousness: patient oriented x3 HENMT Head: Yes normal to inspection, Yes No palpable skull fracture present, Yes normocephalic and Yes atraumatic Ears: hearing grossly normal bilaterally, external ears normal, TM's normal bilaterally, TM normal on the right, TM normal on the left, EAC's normal, mastoids normal and no periauricular adenopathy Throat: Yes posterior oropharynx normal, Yes tonsils normal and Yes uvula midline Neck Neck: Yes normal visual inspection, Yes full ROM, Yes no lymphadenopathy, Yes no meningeal signs, Yes trachea midline, Yes supple, No anterior neck swelling and No tender Chest Chest palpation & inspection: normal inspection of the chest and normal palpation of entire chest wall Resp Effort & Inspection: normal respiratory effort and able to speak in complete sentences Auscultation: clear to auscultation bilaterally Cardio Jugular venous distension: no JVD Heart sounds: S1 normal heart sound present and S2 normal heart sound present GI Inspection: Yes normal to inspection Palpation (GI): Soft to palpation, not firm, nontender, no guarding and not rigid General: Yes no CVA tenderness Back/Spine/Pelvis Back: no CVA tenderness and No back tenderness Skin General skin exam: no rashes or lesions noted, elasticity normal and turgor normal Neuro General: patient oriented x3, gait normal, tone normal, moves all extremities, Normal light touch and pain sensation, no meningeal signs, no focal motor deficits, CN's II-XI intact bilaterally and normal sensation to monofilament Extrem General: Yes normal to inspection, Yes full ROM and Yes capillary refill normal Psych Appearance: grossly normal, well kempt and not disheveled Course Course Course Narrative: RME: 64-year-old male history of asthma presents to ED for URI symptoms for the past 9 days. Patient states coughing yellow phlegm now green with body aches headache sore throat and chills. COVID influenza strep x-ray ordered Medical Decision Making Medical Decision Making [facility] Narrative: 64 year male presents to the ED for URI symptoms. Patient has history of asthma. Patient is not in distress vital signs stable. Swabs x-ray ordered. 1:25pm: Patient's swabs are negative. X-rays negative for pneumonia. Patient already has albuterol inhaler. Patient will be discharged with steroids and coughing medication. Not suspecting CHF, GA, pericarditis, PE, or any other life-threatening etiology. Patient explained worrisome signs and informed to return to the ED immediately. Differential Diagnosis Differential Diagnoses: The differential diagnosis associated with the presentation includes (Asthma, pneumonia, COVID, influenza strep) Admission/Observation Consideration of admission/observation: Escalation of care including admission/observation considered Lab Data [facility] Lab Attestation statement: I reviewed the patient's lab results. Labs: Lab Results 08/13/25 Range/Units 11:03 Influenza Type A (PCR) NEGATIVE (Negative) Influenza Type B (PCR) NEGATIVE (Negative) RSV RNA Qual (PCR) NEGATIVE (Negative) SARS-CoV-2 RNA (RT-PCR) NEGATIVE (Negative) S. pyogenes GrpA JANETH Negative (Negative) Independent Interpretation I performed an independent interpretation of an: Plain X-Ray Radiology Impression Discussion of test interpretation with radiology: I have reviewed the radiologist's reading. Independent Historian Clinical information obtained from an independent historian. History obtained from or confirmed by: Other (patient) Prescription Management I considered prescription management with: Other (Prednisone) Discharge Plan Discharge Clinical Impression: Asthma Patient Disposition: Home, Self-Care Instructions: Asthma (ED) Additional Instructions: Recommend follow-up with primary care provider. Return to the ED for any chest pain, shortness of breath, coughing up blood, weakness, dizziness, leg swelling, calf pain, or any other concerning symptoms. Continue using your albuterol inhaler as needed Prescriptions: New prednisone 20 mg tablet 40 mg PO DAILY 5 Days Qty: 10 0RF azithromycin 250 mg tablet See Rx Instructions .ROUTE .COMPLEX Qty: 6 0RF Rx Instructions: For 250 mg dose pack: take 500 mg today (day 1), then 250 mg for 4 days (days 2-5) benzonatate 200 mg capsule 200 mg PO TID PRN (Reason: cough) 5 Days Qty: 15 0RF No Action (DME) blood pressure monitor [Blood Pressure Kit] Kit See Rx Instructions .Route Qty: 1 0RF Rx Instructions: As directed albuterol sulfate [Ventolin HFA] 90 mcg/actuation HFA aerosol inhaler 2 puff PO Q4H PRN (Reason: for wheezing) 30 Days Qty: 18 6RF omeprazole 20 mg capsule,delayed release(DR/EC) 20 mg PO DAILY Qty: 90 1RF acetaminophen 650 mg tablet extended release 650 mg PO Q8H PRN (Reason: pain) 30 Days Qty: 90 2RF (DME) adult diapers pull-ups 2X-large See Rx Instructions .Route .MEDSUPPLY Qty: 240 11RF Rx Instructions: Use 1 diaper 8 times a day prn albuterol sulfate 2.5 mg /3 mL (0.083 %) solution for nebulization 2.5 mg inhalation Q4-6H PRN (Reason: shortness of breath or wheezing) Qty: 75 0RF hydrocortisone [Anusol-HC] 2.5 % cream with perineal applicator 1 appl IN BEDTIME 14 Days Qty: 30 1RF oxybutynin chloride 10 mg tablet extended release 24hr 10 mg PO DAILY 90 Days Qty: 90 0RF hydrochlorothiazide 25 mg tablet 25 mg PO DAILY 90 Days Qty: 90 1RF irbesartan 300 mg tablet 300 mg PO DAILY 90 Days Qty: 90 1RF (DME) nebulizers [AeroEclipse II Nebulizer] Misc See Rx Instructions .Route Qty: 1 0RF Rx Instructions: As directed Referrals: Brandy Aiken MD [Primary Care Provider, Internal Medicine] - 2 days Referral Note: Asthma URI exacerbation Clinical Impression: Asthma Stand Alone Forms: Work/School Release Interventions: ED Discharge Assessment Last Done: 08/13/25 13:55 Discharge Date/Time: 08/13/25 13:55 Print Language: Belarusian
[2025-08-13 11:39] LABS: IDNOW Serial# 55D5AD1C; Strep A Nucleic Acid Negative (Negative)
[2025-08-13 11:46] LABS: Resp Syncy Virus RNA Qual PCR NEGATIVE (Negative); SARS COV2 PCR INHOUSE NEGATIVE (Negative)
[2025-08-13 13:55] VITALS: BP 180/77; PULSE 70; RESP 18; TEMP 36.6; O2SAT 96
== END 2025-08-13 13:55 | disposition home or self-care (01) ==
PROVIDERS: Physician Assistant; Emergency Provider Emergency Medicine; PCP Internal Medicine
DX: J45.909 Unspecified asthma, uncomplicated (principal); R05.9 Cough, unspecified; R51.9 Headache, unspecified; J02.9 Acute pharyngitis, unspecified; R68.83 Chills (without fever); Z87.891 Personal history of nicotine dependence; Z03.818 Encounter for observation for suspected exposure to other biological agents ruled out
CPT/HCPCS: 71045; 87637; 87651; 99282; 99283

== ENCOUNTER → 2025-08-13 10:59 | Outpatient (BNV) | payer OTHER, SELFPAY | PROVIDERS: Emergency Provider Emergency Medicine; Visit Provider Radiology Diagnostic Radiology | DX: R05.9 Cough, unspecified (principal) | CPT/HCPCS: 71045 ==

== ENCOUNTER 2025-08-27 10:49 | Outpatient (AMB) | payer OTHER, SELFPAY ==
[2025-08-27 11:26] VITALS: BP 162/80; PULSE 78; O2SAT 96; BMI 32.4
--- NOTE | 2025-08-27 11:26 | A.OFFPC_ITS ---
Vital Signs 08/27/25 11:26 Height 5 ft 5 in Weight 195 lb BMI 32.4 BP 162/80 H Blood Pressure Location Lt brachial Position Sitting Pulse 78 Pulse Source Pulse Oximeter Pulse Oximetry (%) 96 Oxygen Delivery Method Room Air Intake Visit [place] [facility] [place] Asthma Intake Note: ringing in right ear, congested, sore throat Dermatology Teacher Required: Yes Dermatology Teacher Language: [place]ian Allergies No Known Allergies (No Known Allergies*) Allergy (Verified 08/27/25 11:27) Medication List - Last Reconciled 08/27/25 by Génesis Tompkins MD acetaminophen ER 650 mg PO Q8H PRN 30 days [adult diapers pull-ups Use 1 diaper 8 times a day prn] albuterol sulfate 2.5 mg (3 mL) inhalation Q4-6H PRN albuterol sulfate 90 mcg/actuation (Ventolin HFA) 2 puffs PO Q4H PRN 30 days blood pressure monitor (Blood Pressure Kit) As directed hydrochlorothiazide 25 mg PO DAILY 90 days hydrocortisone 2.5% (Anusol-HC) 1 appl MD BEDTIME 14 days irbesartan 300 mg PO DAILY 90 days nebulizers (AeroEclipse II Nebulizer) As directed omeprazole 20 mg PO DAILY oxybutynin chloride ER 10 mg PO DAILY 90 days Tobacco use date assessed: 06/12/25 Dental Screening Dental Screen Date: 06/12/25 HPI HPI Comments History of Present Illness Details The patient is a 64 year old individual presenting for follow-up after a visit to the emergency room on August 13 for issues with asthma, an ear infection, and a throat infection. The patient's XR at that time was negative. His COVID-FLU- RSV swab was negative. The patient was discharged on Prednisone, azithromycin and Benzonatate. Since the ER visit, the patient reports that the symptoms have been getting worse. The patient has been coughing up phlegm mixed with blood from both the mouth and nose. While the cough has been decreasing and the patient's voice has returned, the patient still feels the need to cough when talking too much. The patient reports significant pain in one ear, which feels blocked and causes hearing difficulty. The patient has experienced a beeping sound in the ear for over a month and noted temporary improvement in hearing after using a Q-tip. Associated symptoms include sore throat, headache, night sweats, fever, and generalized tiredness and lack of strength. The patient denies any recent travel outside the [place], having anyone sick around, or any exposure to tuberculosis. [facility] Medical History Rectal bleeding Dyslipidemia Nocturia Elevated PSA Hypogonadism in male GERD (gastroesophageal reflux disease) Essential hypertension Surgical History Hx of hemorrhoidectomy (01/13/23) H/O colonoscopy Family History Father Hypertension Myocardial infarction Mother Hypertension Diabetes Paternal Aunt Breast cancer Social History Housing: Apartment Alcohol intake: former Patient Tobacco Use Status: Former Tobacco user Tobacco use type: Cigarette e-Cigarette/Vaping Use: Never Used Second Hand Smoke Exposure: No service: No Current occupational status: disabled Cognitive needs: No Hearing needs: No Vision needs: Yes Questionnaire PHQ-9 Over the last 2 weeks, how often have you been bothered by any of the following problems? 1. Little interest or pleasure in doing things: several days 2. Feeling down, depressed, or hopeless: several days 3. Trouble falling or staying asleep, or sleeping too much: several days 4. Feeling tired or having little energy: several days 5. Poor appetite or overeating: several days 6. Feeling bad about yourself - or that you are a failure or have let yourself or your family down: not at all 7. Trouble concentrating on things, such as reading the newspaper or watching t elevision: more than half the days 8. Moving or speaking so slowly that other people could have noticed. Or the opposite - being so fidgety or restless that you have been moving around a lot more than usual: more than half the days 9. Thoughts that you would be better off or of hurting yourself in some way: not at all Total score: 9 Depression Screening Interpretation: Positive Depression Screening Follow-up: Existing condition and Follow-up Visit Requested Depression Screening Done: Yes Source: Developed by Meka Parks.W. Jason, David Okeefe and colleagues, with an educational shae from [employer]. Thrive Questionnaire Date Thrive assessed: 02/22/25 I am a: Patient What is your living situation today?: I have a steady place to live Within the past 12 months, did the food you bought not last and you didn't have the money to get more?: Sometimes True Within the past 12 months, did you worry whether your food would run out before you got money to buy more?: Sometimes True Do you have trouble paying for medicines?: No Do you have trouble getting transportation to medical appointments?: No Do you have trouble paying your heating and electricity bill?: Yes Do you have trouble taking care of your child, family member or friend?: No Do you have trouble with day-to-day activities such as bathing, preparing meals, shopping, managing finances, etc.?: No Are you currently unemployed and looking for a job?: I choose not to answer this question Are you interested in more education?: I choose not to answer this question Please select the resources that you would like help with: None Currently or been in a relationship where the following occur: No concerns reported THRIVE Score: 3 AUDIT C Alcohol Use Questionnaire (AUDIT-C) 1. How often do you have a drink containing alcohol?: Never Total Score: 0 Score Reviewed/Action Taken: No BARRETT-7 AMB Questionnaire BARRETT-7 Date BARRETT - 7 assessed: 08/27/25 Feeling nervous, anxious, or on edge: 1 = Several days Not being able to stop or control worryin = Several days Worrying too much about different things: 1 = Several days Trouble relaxin = Several days Being so restless that it is hard to sit still: 1 = Several days Becoming easily annoyed or irritable: 0 = Not at all Feeling afraid as if something awful might happen: 1 = Several days Total BARRETT-7 score (0-4 normal; 5-9 mild; 10-14 moderate; 15-21 severe): 6 Source: Developed by Drs. Emmett Barragan, Meka Gomez, David Okeefe and colleagues, with an educational shae from [employer]. Review of Systems Const Details: As per HPI. Physical exam (Primary Care) Vital Signs: Last Vital Signs Pulse 78 08/27/25 11:26 BP 162/80 H 08/27/25 11:26 Pulse Ox 96 08/27/25 11:26 Oxygen Delivery Method Room Air 08/27/25 11:26 BMI result Body Mass Index 32.4 Tobacco/Smoking Status: Tobacco use Status Tobacco use date assessed 06/12/25 08/27/25 11:33 Patient Tobacco Use Status Former Tobacco user 08/27/25 11:33 Tobacco use type Cigarette 08/27/25 11:33 e-Cigarette/Vaping Use Never Used 08/27/25 11:33 PHQ-9: PHQ-9 Score PHQ-9: Total score 9 08/27/25 11:33 Depression Screening Interpretation: Positive Depression Screening Follow-up: Existing condition and Follow-up Visit Requested Thrive Assessment: Date of Thrive Assessment Date Thrive assessed 02/22/25 08/27/25 11:33 Currently or been in a relationship where the following occur: No concerns reported Const Other: Pertinent findings are in BOLD GENERAL APPEARANCE NAD, activity normal for age, well developed/ well nourished, no cyanosis, pallor, or diaphoresis. EYES lids/conjunctiva normal. EARS/NOSE/THROAT Mucous membranes moist, nares normal, lips/teeth normal uvula midline without oral pharyngeal erythema, exudate or swelling TMs normal bilaterally. No lymphangitis/lymphedema. Red tympanic membranes bilaterally. HEAD/NECK normocephalic atraumatic, no facial trauma, neck is supple. RESPIRATORY respiratory effort normal, speaks in full sentences, no tripod position, no accessory muscle use. Lungs clear to auscultation without rhonchi, wheezes, rales CARDIAC Regular rate and rhythm, no edema. ABDOMINAL Soft, ND/NT. No evidence of fluid wave. No pulsatile masses on exam, rebound tenderness, Cheng sign or pain over Mcburney's point. MUSCLES/EXTREMITIES No abnormal range of motion, no swelling. SKIN Warm, pink and dry. No rashes, dermatoses, petechiae or lesions. NEUROLOGICAL Speech is clear and appropriate. Normal level of consciousness. Gait and coordination are normal. 5/5 strength in all extremities. PSYCH Normal mood and affect. Judgement/competence is appropriate Coding Level of Care Code Est Pt Level 3 (63450) Diagnoses Cough R05 Time Spent (min) 20 Assessment & Plan Assessment & Plan (1) Cough: Comment: with hematochezia, fever, chills, night sweats. Code(s): R05 - Cough Category: Medical Plan: with hematochezia, fever, chills, night sweats. - Initiate treatment with Augmentin 1000 mg twice per day. - Conduct rapid strep swab. - Order a chest x-ray and TB test to be done at the [facility] hospital today for further evaluation. - Will contact the patient if any changes to the medication plan are needed based on the X-ray or blood test results. - Schedule a follow-up appointment in two weeks to reassess. Plan I have discussed with the patient the plan to manage the current symptoms. This includes starting a course of Augmentin 1000 mg twice daily. I advised the patient that we will perform a rapid strep swab test in the clinic today and that the patient should go to the [facility] hospital for a chest x-ray and blood work. I informed the patient that I will call if any results from the x-ray or blood tests require a change in medications. A follow-up appointment has been scheduled in two weeks for reassessment. Orders: Orders Quantiferon TB Gold Plus 1 Today K92.1 - Melena XR chest 2V Today K92.1 - Melena Medications: New amoxicillin-pot clavulanate 875-125 mg 1 tab PO BID 20 tabs 0RF
== END 2025-08-27 12:09 | disposition home or self-care (01) ==
LOC: HO.HMCH 10:50
PROVIDERS: PCP Internal Medicine; Visit Provider Internal Medicine
DX: R05.9 Cough, unspecified (principal)

== ENCOUNTER 2025-08-27 10:49 | Outpatient (REF) | payer OTHER, SELFPAY ==
--- NOTE | ~2025-08-27 | XR_ITS ---
EXAMINATION: XR CHEST CLINICAL INFORMATION: K92.1 - Melena COMPARISON: August 13, 2025. TECHNIQUE: PA and lateral views. FINDINGS: No hyperinflation. No consolidation, pleural effusion or pneumothorax. Cardiomediastinal silhouette size is normal with a round cardiac apex. Calcified plaque thoracic aortic arch. Multilevel spondylosis with a mild kyphotic deformity mid thoracic spine. XR/XR chest 2V IMPRESSION: No acute airspace disease. Multilevel spondylosis. Electronically signed by: Jalil Pablo MD 08/27/2025 01:20 PM [facility] GONZALES
[2025-08-30 06:17] LABS: Quantiferon TB Gold Plus 1 NEGATIVE (NEGATIVE); TB Test (QFT) Mitogen -Nil >10.00 IU/mL; TB Test (QFT) Nil 0.09 IU/mL; TB Test (QFT) Plus TB1 -Nil 0.02 IU/mL; TB Test (QFT) Plus TB2 -Nil 0.01 IU/mL
== END 2025-08-27 10:50 | disposition home or self-care (01) ==
LOC: HO.XRAY 10:49
PROVIDERS: PCP Internal Medicine; Visit Provider Internal Medicine
DX: Z09 Encounter for follow-up examination after completed treatment for conditions other than malignant neoplasm (principal); K92.1 Melena; R05.9 Cough, unspecified; Z13.31 Encounter for screening for depression; Z13.39 Encounter for screening examination for other mental health and behavioral disorders
CPT/HCPCS: 36415; 71046; 86480; 96127; 99212

== ENCOUNTER → 2025-08-27 12:18 | Outpatient (BNV) | payer OTHER, SELFPAY | PROVIDERS: PCP Internal Medicine; Visit Provider Radiology Diagnostic Radiology | DX: M47.814 Spondylosis without myelopathy or radiculopathy, thoracic region (principal); K92.1 Melena | CPT/HCPCS: 71046 ==

== ENCOUNTER 2025-09-10 11:30 | Outpatient (AMB) | payer OTHER, SELFPAY ==
--- NOTE | 2025-09-10 11:41 | A.OFFPC_ITS ---
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 Banquet Required: No Accompanied by: Self / Same As Patient Allergies No Known Allergies (No Known Allergies*) Allergy (Verified 09/10/25 11:42) Tobacco use date assessed: 09/10/25 Dental Screening Dental Screen Date: 09/10/25 Did you have a dental visit in the last 12 months?: No Did you have a dental problem in the last 6 months where you did not have access to dental care?: No Was dental information given to patient?: Patient has dentist HPI HPI Comments History of Present Illness Details The patient is a 64 year old male presenting for a follow-up visit after being seen two weeks ago for a cough and throat infection. At the previous visit, he was diagnosed with pneumonia with hemoptysis. Workup at the last visit included a negative tuberculosis test and a negative chest x-ray. He was prescribed and completed a 10-day course of Augmentin. Currently, he reports his cough has improved significantly and denies any further hemoptysis, stating he feels much better. However, he now complains of his ears feeling clogged. [facility] Medical History Rectal bleeding Dyslipidemia Nocturia Elevated PSA Hypogonadism in male GERD (gastroesophageal reflux disease) Essential hypertension Surgical History Hx of hemorrhoidectomy (01/13/23) H/O colonoscopy Family History Father Hypertension Myocardial infarction Mother Hypertension Diabetes Paternal Aunt Breast cancer Social History Housing: Apartment Alcohol intake: former Patient Tobacco Use Status: Former Tobacco user Tobacco use type: Cigarette e-Cigarette/Vaping Use: Never Used Second Hand Smoke Exposure: No service: No Current occupational status: disabled Cognitive needs: No Hearing needs: No Vision needs: Yes Questionnaire PHQ-9 Over the last 2 weeks, how often have you been bothered by any of the following problems? 1. Little interest or pleasure in doing things: several days 2. Feeling down, depressed, or hopeless: several days 3. Trouble falling or staying asleep, or sleeping too much: several days 4. Feeling tired or having little energy: several days 5. Poor appetite or overeating: several days 6. Feeling bad about yourself - or that you are a failure or have let yourself or your family down: not at all 7. Trouble concentrating on things, such as reading the newspaper or watching television: more than half the days 8. Moving or speaking so slowly that other people could have noticed. Or the opposite - being so fidgety or restless that you have been moving around a lot more than usual: more than half the days 9. Thoughts that you would be better off or of hurting yourself in some way: not at all Total score: 9 Source: Developed by Drs. Emmett Barragan, Meka Gomez, David Okeefe and colleagues, with an educational shae from [employer]. Thrive Questionnaire Date Thrive assessed: 09/10/25 I am a: Patient What is your living situation today?: I have a steady place to live Within the past 12 months, did the food you bought not last and you didn't have the money to get more?: Sometimes True Within the past 12 months, did you worry whether your food would run out before you got money to buy more?: Sometimes True Do you have trouble paying for medicines?: No Do you have trouble getting transportation to medical appointments?: No Do you have trouble paying your heating and electricity bill?: Yes Do you have trouble taking care of your child, family member or friend?: No Do you have trouble with day-to-day activities such as bathing, preparing meals, shopping, managing finances, etc.?: No Are you currently unemployed and looking for a job?: I choose not to answer this question Are you interested in more education?: I choose not to answer this question Please select the resources that you would like help with: None Currently or been in a relationship where the following occur: No concerns reported THRIVE Score: 3 AUDIT C Alcohol Use Questionnaire (AUDIT-C) 1. How often do you have a drink containing alcohol?: Never 3. How often do you have six or more drinks on one occasion?: Never Total Score: 0 Score Reviewed/Action Taken: No BARRETT-7 AMB Questionnaire BARRETT-7 Date BARRETT - 7 assessed: 09/10/25 Feeling nervous, anxious, or on edge: 1 = Several days Not being able to stop or control worryin = Several days Worrying too much about different things: 1 = Several days Trouble relaxin = Several days Being so restless that it is hard to sit still: 1 = Several days Becoming easily annoyed or irritable: 0 = Not at all Feeling afraid as if something awful might happen: 1 = Several days Total BARRETT-7 score (0-4 normal; 5-9 mild; 10-14 moderate; 15-21 severe): 6 Source: Developed by Drs. Emmett Barragan, Meka Gomez, David Okeefe and colleagues, with an educational shae from [employer]. Review of Systems Const Details: As per HPI. Physical exam (Primary Care) Vital Signs: Last Vital Signs Pulse 70 09/10/25 11:42 BP 142/80 H 09/10/25 11:42 Pulse Ox 98 09/10/25 11:42 Oxygen Delivery Method Room Air 09/10/25 11:42 BMI result Body Mass Index 32.7 Tobacco/Smoking Status: Tobacco use Status Tobacco use date assessed 09/10/25 09/10/25 11:50 Patient Tobacco Use Status Former Tobacco user 09/10/25 11:50 Tobacco use type Cigarette 09/10/25 11:50 e-Cigarette/Vaping Use Never Used 09/10/25 11:50 PHQ-9: PHQ-9 Score PHQ-9: Total score 9 09/10/25 11:50 Thrive Assessment: Date of Thrive Assessment Date Thrive assessed 09/10/25 09/10/25 11:50 Currently or been in a relationship where the following occur: No concerns reported Const Other: Pertinent findings are in BOLD GENERAL APPEARANCE NAD, activity normal for age, well developed/ well nourished, no cyanosis, pallor, or diaphoresis. EYES lids/conjunctiva normal. EARS/NOSE/THROAT Mucous membranes moist, nares normal, lips/teeth normal uvula midline without oral pharyngeal erythema, exudate or swelling TMs normal bilaterally. No lymphangitis/lymphedema. HEAD/NECK normocephalic atraumatic, no facial trauma, neck is supple. RESPIRATORY respiratory effort normal, speaks in full sentences, no tripod position, no accessory muscle use. Lungs clear to auscultation without rhonchi, wheezes, rales CARDIAC Regular rate and rhythm, no edema. ABDOMINAL Soft, ND/NT. No evidence of fluid wave. No pulsatile masses on exam, rebound tenderness, Cheng sign or pain over Mcburney's point. MUSCLES/EXTREMITIES No abnormal range of motion, no swelling. SKIN Warm, pink and dry. No rashes, dermatoses, petechiae or lesions. NEUROLOGICAL Speech is clear and appropriate. Normal level of consciousness. Gait and coordination are normal. 5/5 strength in all extremities. PSYCH Normal mood and affect. Judgement/competence is appropriate Coding Level of Care Code Est Pt Level 3 (82880) Diagnoses Congestion of both ears H93.8X3 Laterality: bilateral Other cough R05.8 Cough type: other Time Spent (min) 20 Assessment & Plan Assessment & Plan (1) Ear congestion: Code(s): H93.8X9 - Other specified disorders of ear, unspecified ear Category: Medical Qualifiers: Laterality: bilateral Qualified Code(s): H93.8X3 - Other specified disorders of ear, bilateral Plan: - The patient reports his ears feel clogged. - Physical exam of the ears was normal. - Reassurance was provided that this is likely post-infectious and will resolve gradually over time. - The patient will follow up with his primary care provider as scheduled. (2) Cough: Comment: with hematochezia, fever, chills, night sweats. Code(s): R05 - Cough Category: Medical Qualifiers: Cough type: other Qualified Code(s): R05.8 - Other specified cough Plan: - The patient reports feeling significantly better after completing a 10-day course of Augmentin. - His cough has improved and hemoptysis has resolved. - Workup including a TB test and chest x-ray from the prior visit were negative. Plan I informed the patient that his ear congestion is a residual effect from his recent pneumonia. I explained that while the otoscopic exam was normal, it may take some time for this symptom to resolve completely, and that it should improve little by little.
[2025-09-10 11:42] VITALS: BP 142/80; PULSE 70; O2SAT 98; BMI 32.7
== END 2025-09-10 12:30 | disposition home or self-care (01) ==
LOC: HO.HMCH 11:31
PROVIDERS: PCP Internal Medicine; Visit Provider Internal Medicine
DX: H93.8X3 Other specified disorders of ear, bilateral (principal); R05.8 Other specified cough

== ENCOUNTER → 2025-09-10 11:30 | Outpatient (BNVA) | payer OTHER, SELFPAY | PROVIDERS: PCP Internal Medicine; Visit Provider Internal Medicine | DX: H93.8X3 Other specified disorders of ear, bilateral (principal); R05.8 Other specified cough | CPT/HCPCS: 96127; 99212 ==